=== PATIENT | female | born 1945 | race Caucasian/White ===

== ENCOUNTER 2021-08-25 11:56 | Inpatient (IN) ==
[2021-08-25] MEDS ORDERED: NS 1,000 ML IV 1,000 ML ONE (13:21)
[2021-08-25 13:28] LABS: BASOPHILS % (AUTO) 0.7 % (0.2-1.0); HEMATOCRIT 36.8 % (36.0-47.0); HEMOGLOBIN 12.2 g/dL (12.0-16.0); LYMPHOCYTES # (AUTO) 1.4 X10^3/uL (1.3-2.9); LYMPHOCYTES % (AUTO) 27.4 % (21.0-51.0); MEAN CORPUSCULAR HEMOGLOBIN 23.7 pg (27.0-34.0); MEAN CORPUSCULAR HGB CONC 33.1 g/dL (33.0-35.0); MEAN CORPUSCULAR VOLUME 71.5 fL (80.0-100.0); MONOCYTES # (AUTO) 0.4 x10^3/uL (0.3-0.8); MONOCYTES % (AUTO) 7.3 % (0.0-13.0); NEUTROPHILS # (AUTO) 3.2 x10^3/uL (2.2-4.8); NEUTROPHILS % (AUTO) 64.6 % (42.0-75.0); RED BLOOD COUNT 5.15 X10^6/uL (3.5-5.4)
[2021-08-25] MEDS: NS 1,000 ML IV 1,000 ML IV SCH (13:36)
[2021-08-25 13:41] LABS: ABG BASE EXCESS -9.3 mmol/L (-2.0-2.0)
[2021-08-25 13:42] LABS: ABG ALLEN TEST POS; ABG HCO3 15.1 mmol/L (22-26)
[2021-08-25 13:43] LABS: ALANINE AMINOTRANSFERASE 37 Units/L (12-78); ALBUMIN 3.5 g/dL (3.4-5.0); ALKALINE PHOSPHATASE 74 Units/L (46-116); ASPARTATE AMINO TRANSFERASE 45 Units/L (15-37); BLOOD UREA NITROGEN 53 mg/dL (7-18); CALCIUM 9.1 mg/dL (8.5-10.1); CARBON DIOXIDE 21.3 mmol/L (21-32); CHLORIDE 96 mmol/L (98-107); COR NA(FOR HYPERGLY) 134 mmol/L (136-145); CREATININE 2.74 mg/dL (0.55-1.02); SODIUM 131 mmol/L (136-145); TOTAL PROTEIN 8.8 g/dL (6.4-8.2); eGFR NON BLACK RACES 18 (>60)
[2021-08-25 14:02] LABS: OVALOCYTES SLIGHT; PLATELET MORPHOLOGY COMMENT NORMAL (NORMAL)
--- NOTE | 2021-08-25 14:29 | RAD ---
HISTORYCough, wheezing, COVID-19STUDYChest PA and lateralCOMPARISONNoneFINDINGSHeart size is normal. [place] are normal. Lungs appear free of acute alveolar infiltrates. No pleural effusions are identified. Bony thorax is unremarkable.IMPRESSIONNo significant abnormality identifiedElectronically signed by: LAUREN JAY (Aug 25, 2021 14:27:52)
[2021-08-25] MEDS ORDERED: SOTROVIMAB (EUA) 500 MG, DRUG FILTER EXTENSION SET * 1 EA in NS 250 ML IV 250 ML IV NR ×2 (15:00)
[2021-08-25] MEDS ORDERED: DRUG FILTER EXTENSION SET ONE (15:45)
[2021-08-25 16:35] LABS: BASOPHILS % (AUTO) 0.9 % (0.2-1.0); HEMATOCRIT 35.5 % (36.0-47.0); HEMOGLOBIN 11.8 g/dL (12.0-16.0); LYMPHOCYTES # (AUTO) 0.9 X10^3/uL (1.3-2.9); LYMPHOCYTES % (AUTO) 25.3 % (21.0-51.0); MEAN CORPUSCULAR HEMOGLOBIN 23.7 pg (27.0-34.0); MEAN CORPUSCULAR HGB CONC 33.2 g/dL (33.0-35.0); MEAN CORPUSCULAR VOLUME 71.4 fL (80.0-100.0); MEAN PLATELET VOLUME 8.7 fL (7.4-11.0); MONOCYTES # (AUTO) 0.3 x10^3/uL (0.3-0.8); MONOCYTES % (AUTO) 7.2 % (0.0-13.0); NEUTROPHILS # (AUTO) 2.4 x10^3/uL (2.2-4.8); NEUTROPHILS % (AUTO) 66.6 % (42.0-75.0); RED BLOOD COUNT 4.96 X10^6/uL (3.5-5.4); WHITE BLOOD COUNT 3.5 X10^3/uL (3.6-10.0)
[2021-08-25 16:46] LABS: ALBUMIN 3.2 g/dL (3.4-5.0); CALCIUM 8.7 mg/dL (8.5-10.1); COR CA(FOR HYPOALB) 9.3 mg/dL (8.5-10.1); CREATININE 2.55 mg/dL (0.55-1.02); TOTAL PROTEIN 8.1 g/dL (6.4-8.2)
[2021-08-25] MEDS: VITAMIN D (1.25MG) PO SCH (16:46)
[2021-08-25] MEDS: LOVENOX INJ 30 MG SYR SC SCH (16:46)
[2021-08-25] MEDS: NovoLIN R (or HumuLIN R) SUBCUT PRN (16:47)
[2021-08-25 16:57] LABS: MICROCYTOSIS SLIGHT; PLATELET MORPHOLOGY COMMENT NORMAL (NORMAL)
[2021-08-25] MEDS ORDERED: PROCRIT or EPOGEN VIAL 20,000 UNITS SC SCH (17:00)
[2021-08-25] MEDS ORDERED: NS 1,000 ML IV 1,000 ML IV SCH (17:00)
[2021-08-25] MEDS: SNACK - Diabetic Appropriate PO SCH (20:00)
[2021-08-25 20:12] LABS: BILIRUBIN,URINE NEGATIVE (NEGATIVE); BLOOD/HEMOGLOBIN,URINE 1+ (NEGATIVE); GLUCOSE, URINE NEGATIVE (NEGATIVE); KETONES,URINE NEGATIVE (NEGATIVE); LEUKOCYTE ESTERASE ,URINE NEGATIVE (NEGATIVE); NITRITES,URINE NEGATIVE (NEGATIVE); PROTEIN,URINE 3+ (NEGATIVE); UROBILINOGEN,URINE NORMAL (NORMAL)
[2021-08-25 20:14] LABS: APPEARANCE,URINE SLIGHTLY HAZY (CLEAR); COLOR,URINE YELLOW (YELLOW)
[2021-08-25 20:22] LABS: BACTERIA,URINE 2+ /HPF (NEGATIVE); SQUAMOUS EPITHELIAL CELL,UR MODERATE /HPF (NEGATIVE)
[2021-08-25 20:23] LABS: COARSE GRANULAR CASTS,URINE FEW /HPF (NEGATIVE)
[2021-08-25] MEDS: FERROUS GLUCONATE PO SCH (20:40)
[2021-08-25] MEDS: LOPRESSOR TAB 25 MG PO SCH (20:40)
[2021-08-25] MEDS: K-DUR TAB 20 MEQ PO SCH (20:40)
[2021-08-25] MEDS: PEPCID TAB 20 MG PO SCH (20:40)
[2021-08-25] MEDS: ASCORBIC ACID INJ MULTI-DOSE VIAL 1,500 MG in NS 50 ML IV 50 ML IV SCH (20:40)
[2021-08-25] MEDS ORDERED: GLUCOPHAGE PO SCH (21:00)
[2021-08-25] MEDS: BROVANA IN SCH (21:05)
[2021-08-25] MEDS: PULMICORT NEB TX 0.5 MG NEB SCH (21:05)
[2021-08-25] MEDS: TYLENOL 325 MG TAB PO PRN (22:40)
[2021-08-26] MEDS: ASCORBIC ACID INJ MULTI-DOSE VIAL 1,500 MG in NS 50 ML IV 50 ML IV SCH ×4 (02:38→20:31)
[2021-08-26 04:52] LABS: ABG BASE EXCESS -9.3 mmol/L (-2.0-2.0)
[2021-08-26 04:53] LABS: ABG ALLEN TEST POS; ABG HCO3 15.3 mmol/L (22-26)
[2021-08-26] MEDS: NS 1,000 ML IV 1,000 ML IV SCH ×2 (04:58→16:35)
[2021-08-26 05:22] LABS: BILIRUBIN,URINE NEGATIVE (NEGATIVE); BLOOD/HEMOGLOBIN,URINE NEGATIVE (NEGATIVE); GLUCOSE, URINE NEGATIVE (NEGATIVE); KETONES,URINE NEGATIVE (NEGATIVE); LEUKOCYTE ESTERASE ,URINE NEGATIVE (NEGATIVE); NITRITES,URINE NEGATIVE (NEGATIVE); PROTEIN,URINE 3+ (NEGATIVE); UROBILINOGEN,URINE NORMAL (NORMAL)
[2021-08-26 05:22] LABS: BASOPHILS % (AUTO) 0.5 % (0.2-1.0); EOSINOPHILS % (AUTO) 0.1 % (0.9-2.9); HEMATOCRIT 34.1 % (36.0-47.0); HEMOGLOBIN 11.3 g/dL (12.0-16.0); LYMPHOCYTES # (AUTO) 1.3 X10^3/uL (1.3-2.9); LYMPHOCYTES % (AUTO) 29.6 % (21.0-51.0); MEAN CORPUSCULAR HEMOGLOBIN 23.6 pg (27.0-34.0); MEAN CORPUSCULAR HGB CONC 33.3 g/dL (33.0-35.0); MEAN CORPUSCULAR VOLUME 70.8 fL (80.0-100.0); MEAN PLATELET VOLUME 9.2 fL (7.4-11.0); MONOCYTES # (AUTO) 0.2 x10^3/uL (0.3-0.8); MONOCYTES % (AUTO) 4.7 % (0.0-13.0); NEUTROPHILS # (AUTO) 2.8 x10^3/uL (2.2-4.8); NEUTROPHILS % (AUTO) 65.1 % (42.0-75.0); RED BLOOD COUNT 4.81 X10^6/uL (3.5-5.4); RED CELL DISTRIBUTION WIDTH 19.6 % (11.6-16.5); WHITE BLOOD COUNT 4.4 X10^3/uL (3.6-10.0)
[2021-08-26 05:24] LABS: APPEARANCE,URINE SLIGHTLY HAZY (CLEAR); COLOR,URINE YELLOW (YELLOW)
[2021-08-26 05:35] LABS: BACTERIA,URINE 3+ /HPF (NEGATIVE); GRANULAR CASTS,URINE FEW /LPF (NEGATIVE); RBC,URINE 0-2 /HPF (0-3); SQUAMOUS EPITHELIAL CELL,UR RARE /HPF (NEGATIVE)
[2021-08-26 05:46] LABS: ALBUMIN 3.1 g/dL (3.4-5.0); CALCIUM 8.5 mg/dL (8.5-10.1); CARBON DIOXIDE 17.7 mmol/L (21-32); COR CA(FOR HYPOALB) 9.2 mg/dL (8.5-10.1); CREATININE 2.38 mg/dL (0.55-1.02); TOTAL PROTEIN 7.9 g/dL (6.4-8.2)
--- NOTE | 2021-08-26 07:10 | RAD ---
HISTORYCOVID+, F/USTUDYCHEST, 1 VIEWCOMPARISONOne day prior.TECHNIQUEAP view of the chestFINDINGSCardiac and mediastinal contours are within normal limits. Interval development of bilateral scattered hazy and interstitial pulmonary opacities. No definite pleural effusion or pneumothorax.IMPRESSIONDevelopment of bilateral hazy and interstitial pulmonary opacities consistent with COVID 19.Electronically signed by: Levy Barger (Aug 26, 2021 07:09:14)
[2021-08-26 07:33] LABS: HYPOCHROMASIA 1+; PLATELET MORPHOLOGY COMMENT NORMAL (NORMAL)
[2021-08-26 07:34] LABS: ANISOCYTOSIS SLIGHT; OVALOCYTES 1+
[2021-08-26] MEDS: LOVENOX INJ 30 MG SYR SC SCH (08:45)
[2021-08-26] MEDS: VITAMIN D (1.25MG) PO SCH (08:46)
[2021-08-26] MEDS: CRESTOR TAB 10 MG PO SCH (08:46)
[2021-08-26] MEDS: FERROUS GLUCONATE PO SCH ×2 (08:46→20:30)
[2021-08-26] MEDS: SYNTHROID 88 mcg TAB PO SCH (08:47)
[2021-08-26] MEDS: LOPRESSOR TAB 25 MG PO SCH ×2 (08:47→21:23)
[2021-08-26] MEDS: K-DUR TAB 20 MEQ PO SCH ×2 (08:47→20:31)
[2021-08-26] MEDS ORDERED: TRICOR TAB 160 MG PO SCH (09:00)
[2021-08-26] MEDS: BROVANA IN SCH ×2 (09:41→20:45)
[2021-08-26] MEDS: PULMICORT NEB TX 0.5 MG NEB SCH ×2 (09:41→20:45)
[2021-08-26] MEDS: NovoLIN R (or HumuLIN R) SUBCUT PRN ×2 (10:54→16:36)
[2021-08-26] MEDS: ZOSYN VIAL 3.375 GRAMS 3.375 G in NS 100 ML IV + SPIKE MINIBAG* 100 ML IV SCH (14:22)
--- NOTE | 2021-08-26 19:14 | DR.H&P ---
H&P History & Physical for Day of: H&P Date: 08/25/21 Chief Complaint Chief Complaint: Covid/ SOB Allergies Allergies Allergy/AdvReac Type Severity Reaction Status Date / Time No Known Drug Allergies Allergy Verified 08/25/21 14:20 History of Present Illness History of Present Illness: This is a 76-year-old white female with an 11 day hx of Covid. She repoerts getting worse over the last 2 days with progressive weakness and SOB. She reports she is not getting any better since she contracted Covid. She is a patient of [facility] of [place], [place]. Past Medical History Past Medical History: Anemia, Diabetes, Dyslipidemia, Hypertension, Hypothyroidism and Renal Disease; denies Migraines Past Surgical History Surgical History: No History Family History Family Medical History: Diabetes Mellitus, CA, Coronary Artery Disease, Heart Failure and Hypertension Social History Does patient currently use any type of tobacco product: No Have you used tobacco products in the last 12 months: No Type of Tobacco Use: None Alcohol Use: None Drug Use: None Medications Home Medications: No Known Drug Allergies Allergy (Verified 08/25/21 14:20) CONTINUE taking the following medications albuterol 90 mcg INHALATION Q4H PRN 08/25/21 [History] dulaglutide [Trulicity] 1.5 mg SUBCUT WEEKLY 08/25/21 [History] epoetin norah [Procrit] 1 unit SUBCUT Q14D 08/25/21 [History] ferrous fumarate [Ferrocite] 324 mg PO BID 08/25/21 [History] levothyroxine 88 mcg PO DAILY 08/25/21 [History] meclizine 25 mg PO DAILY PRN 08/25/21 [History] metformin 1,000 mg PO BID 08/25/21 [History] metoprolol tartrate 25 mg PO BID 08/25/21 [History] potassium chloride 20 meq PO BID 08/25/21 [History] rosuvastatin 40 mg PO DAILY 08/25/21 [History] triamterene-hydrochlorothiazid 1 tab PO DAILY 08/25/21 [History] Labs Result Diagrams: 08/26/21 04:30 08/26/21 04:30 Labs: Laboratory WBC 4.4 X10^3/uL (3.6-10.0) 08/26/21 04:30 RBC 4.81 X10^6/uL (3.5-5.4) 08/26/21 04:30 Hgb 11.3 g/dL (12.0-16.0) L 08/26/21 04:30 Hct 34.1 % (36.0-47.0) L 08/26/21 04:30 MCV 70.8 fL (80.0-100.0) L 08/26/21 04:30 MCH 23.6 pg (27.0-34.0) L 08/26/21 04:30 MCHC 33.3 g/dL (33.0-35.0) 08/26/21 04:30 RDW 19.6 % (11.6-16.5) H 08/26/21 04:30 Plt Count 119 X10^3/uL (150.0-450.0) L 08/26/21 04:30 Plt Count Comment Decreased (ADEQUATE) A 08/26/21 04:30 MPV 9.2 fL (7.4-11.0) 08/26/21 04:30 Neut % (Auto) 65.1 % (42.0-75.0) 08/26/21 04:30 Lymph % (Auto) 29.6 % (21.0-51.0) 08/26/21 04:30 [place] % (Auto) 4.7 % (0.0-13.0) 08/26/21 04:30 Eos % (Auto) 0.1 % (0.9-2.9) L 08/26/21 04:30 Baso % (Auto) 0.5 % (0.2-1.0) 08/26/21 04:30 Neut # (Auto) 2.8 x10^3/uL (2.2-4.8) 08/26/21 04:30 Lymph # (Auto) 1.3 X10^3/uL (1.3-2.9) 08/26/21 04:30 [place] # (Auto) 0.2 x10^3/uL (0.3-0.8) L 08/26/21 04:30 Eos # (Auto) 0.0 x10^3/uL (0.0-0.2) 08/26/21 04:30 Baso # (Auto) 0.0 X10^3/uL (0.0-0.1) 08/26/21 04:30 Absolute Nucleated RBC 0.1 /100WBC 08/26/21 04:30 Plt Morphology Comment Normal (NORMAL) 08/26/21 04:30 RBC Morphology Abnormal (NORMAL) A 08/26/21 04:30 Hypochromasia 1+ A 08/26/21 04:30 Anisocytosis Slight A 08/26/21 04:30 Microcytosis Slight A 08/25/21 16:25 Ovalocytes 1+ A 08/26/21 04:30 D-Dimer 0.61 ug/ml (0.0-0.57) H* 08/25/21 13:19 Sample Site Rrad 08/26/21 04:50 ABG pH 7.330 (7.35-7.45) L 08/26/21 04:50 ABG pCO2 29.0 mmHg (35.0-45.0) L 08/26/21 04:50 ABG pO2 75.0 mmHg (80.0-100.0) L 08/26/21 04:50 ABG HCO3 15.3 mmol/L (22-26) L* 08/26/21 04:50 ABG O2 Saturation 94.0 % (90-100) 08/26/21 04:50 ABG Base Excess -9.3 mmol/L (-2.0-2.0) L 08/26/21 04:50 Arjun Test Pos 08/26/21 04:50 A-a Gradient 88.0 mmHg 08/26/21 04:50 FiO2 28.0 08/26/21 04:50 Blood Gas Comments Dolores well ms 08/26/21 04:50 Sodium 134 mmol/L (136-145) L 08/26/21 04:30 Corrected Sodium 135 mmol/L (136-145) L 08/26/21 04:30 Potassium 4.1 mmol/L (3.5-5.1) 08/26/21 04:30 Chloride 102 mmol/L (98-107) 08/26/21 04:30 Carbon Dioxide 17.7 mmol/L (21-32) L 08/26/21 04:30 BUN 49 mg/dL (7-18) H 08/26/21 04:30 Creatinine 2.38 mg/dL (0.55-1.02) H 08/26/21 04:30 Est GFR (MDRD) Af Amer 26 (>60) L 08/26/21 04:30 Est GFR (MDRD) Non-Af 21 (>60) L 08/26/21 04:30 Glucose 122 mg/dL (65-99) H 08/26/21 04:30 POC Glucose (mg/dL) 252 mg/dL (65-99) H 08/26/21 16:29 Calcium 8.5 mg/dL (8.5-10.1) 08/26/21 04:30 Corrected Calcium 9.2 mg/dL (8.5-10.1) 08/26/21 04:30 Total Bilirubin 0.30 mg/dL (0.2-1.0) 08/26/21 04:30 AST 45 Units/L (15-37) H 08/26/21 04:30 ALT 34 Units/L (12-78) 08/26/21 04:30 Alkaline Phosphatase 62 Units/L (46-116) 08/26/21 04:30 C-Reactive Protein 32.90 mg/L (0-3.0) H 08/26/21 04:30 Total Protein 7.9 g/dL (6.4-8.2) 08/26/21 04:30 Albumin 3.1 g/dL (3.4-5.0) L 08/26/21 04:30 Globulin 4.8 g/dL (2.5-4.5) H 08/26/21 04:30 Albumin/Globulin Ratio 0.6 Ratio (1.1-2.1) L 08/26/21 04:30 Specimen Type Clean catch urine 08/26/21 04:25 Urine Color Yellow (YELLOW) 08/26/21 04:25 Urine Appearance Slightly hazy (CLEAR) 08/26/21 04:25 Urine pH 5.0 (5.0 - 8.0) 08/26/21 04:25 Ur Specific [place] 1.020 (1.000-1.030) 08/26/21 04:25 Urine Protein 3+ (NEGATIVE) 08/26/21 04:25 Urine Glucose (UA) Negative (NEGATIVE) 08/26/21 04:25 Urine Ketones Negative (NEGATIVE) 08/26/21 04:25 Urine Occult Blood Negative (NEGATIVE) 08/26/21 04:25 Urine Nitrite Negative (NEGATIVE) 08/26/21 04:25 Urine Bilirubin Negative (NEGATIVE) 08/26/21 04:25 Urine Urobilinogen Normal (NORMAL) 08/26/21 04:25 Ur Leukocyte Esterase Negative (NEGATIVE) 08/26/21 04:25 Urine RBC 0-2 /HPF (0-3) 08/26/21 04:25 Urine WBC 3-5 /HPF (0-5) 08/26/21 04:25 Ur Squamous Epith Cells Rare /HPF (NEGATIVE) 08/26/21 04:25 Amorphous Sediment 1+ /HPF (NEGATIVE) 08/26/21 04:25 Urine Bacteria 3+ /HPF (NEGATIVE) 08/26/21 04:25 Granular Casts Few /LPF (NEGATIVE) 08/26/21 04:25 Coarse Granular Casts Few /HPF (NEGATIVE) 08/25/21 20:00 Urine Mucus Few /HPF (NEGATIVE) 08/25/21 20:00 Ur Culture Indicated? Yes/culture set up 08/26/21 04:25 Review of Systems Constitutional: Fever, Weakness and Malaise; denies Other Eyes: No Symptoms Reported ENT: No Symptoms Reported Respiratory: Cough, Shortness of Breath and SOB with Excertion Cardiovascular: No Symptoms Reported Gastrointestinal: No Symptoms Reported Genitourinary: No Symptoms Reported Musculoskeletal: No Symptoms Reported Skin: No Symptoms Reported Neurological: Weakness Physical Exam Vital Signs: Temperature 99.0 F Pulse Rate 75 Respiratory Rate 20 Blood Pressure 110/57 O2 Sat by Pulse Oximetry 95 Oriented: Normal Eyes: Normal Ear: Normal Nose: Normal Throat: Normal Respiratory: Rhonchi Throughout Cardiovascular: Normal : Normal Auscultation: Bowel Sounds: Normal Palpation: Normal Tenderness: Normal Skin: Normal Musculoskeletal: Normal Psychiatric: Normal Mood Description: Calm Affect: Normal Speech Pattern: Clear and Appropriate Assessment/Plan (1) COVID-19: Status: Acute Plan: Covid Protocol (2) CKD (chronic kidney disease) stage 4, GFR 15-29 ml/min: Status: Acute Plan: IV hydration (3) Anemia of chronic renal failure: Status: Acute (4) DM2 (diabetes mellitus, type 2): Status: Acute Plan: Reg insulin sliding scale (5) HTN (hypertension): Status: Acute (6) Dyslipidemia: Narrative Support Text: resume home bp meds Status: Acute (7) Hypothyroidism: Status: Acute Plan: resume levothyroxine
--- NOTE | 2021-08-26 19:27 | PCM.PROG ---
Progress Note Progress Note for Day of Date of Exam: 08/26/21 Subjective Subjective: Patient reports she feels somewhat better. Less SOB. Feels a little stronger. Past Medical Family Social History Past Med/Fam/Surg Hx: No changes since H&P Allergies: Allergies No Known Drug Allergies Allergy (Verified 08/25/21 14:20) Review of Systems ROS: No change since H&P Vital Signs and I&O's Vital Signs: Temperature 99.0 F Pulse Rate 75 Respiratory Rate 20 Blood Pressure 110/57 O2 Sat by Pulse Oximetry 95 Intake and Output: Intake & Output 08/24/21 08/25/21 08/26/21 08/27/21 11:59 11:59 11:59 11:59 Intake Total 1906 / 1906 972 / 972 Output Total 1300 / 1300 850 / 850 Balance 606 / 606 122 / 122 Physical Exam Oriented: Normal Eyes: Normal Ear: Normal Nose: Normal Throat: Normal Respiratory: Diminished and Rhonchi Cardiovascular: Normal : Normal Auscultation: Bowel Sounds: Normal Tenderness: Normal Skin: Normal Musculoskeletal: Normal Psychiatric: Normal Mood Description: Calm Affect: Normal Speech Pattern: Clear and Appropriate Laboratory and Diagnostics Result Diagrams: 08/26/21 04:30 08/26/21 04:30 Labs: Laboratory WBC 4.4 X10^3/uL (3.6-10.0) 08/26/21 04:30 RBC 4.81 X10^6/uL (3.5-5.4) 08/26/21 04:30 Hgb 11.3 g/dL (12.0-16.0) L 08/26/21 04:30 Hct 34.1 % (36.0-47.0) L 08/26/21 04:30 MCV 70.8 fL (80.0-100.0) L 08/26/21 04:30 MCH 23.6 pg (27.0-34.0) L 08/26/21 04:30 MCHC 33.3 g/dL (33.0-35.0) 08/26/21 04:30 RDW 19.6 % (11.6-16.5) H 08/26/21 04:30 Plt Count 119 X10^3/uL (150.0-450.0) L 08/26/21 04:30 Plt Count Comment Decreased (ADEQUATE) A 08/26/21 04:30 MPV 9.2 fL (7.4-11.0) 08/26/21 04:30 Neut % (Auto) 65.1 % (42.0-75.0) 08/26/21 04:30 Lymph % (Auto) 29.6 % (21.0-51.0) 08/26/21 04:30 [place] % (Auto) 4.7 % (0.0-13.0) 08/26/21 04:30 Eos % (Auto) 0.1 % (0.9-2.9) L 08/26/21 04:30 Baso % (Auto) 0.5 % (0.2-1.0) 08/26/21 04:30 Neut # (Auto) 2.8 x10^3/uL (2.2-4.8) 08/26/21 04:30 Lymph # (Auto) 1.3 X10^3/uL (1.3-2.9) 08/26/21 04:30 [place] # (Auto) 0.2 x10^3/uL (0.3-0.8) L 08/26/21 04:30 Eos # (Auto) 0.0 x10^3/uL (0.0-0.2) 08/26/21 04:30 Baso # (Auto) 0.0 X10^3/uL (0.0-0.1) 08/26/21 04:30 Absolute Nucleated RBC 0.1 /100WBC 08/26/21 04:30 Plt Morphology Comment Normal (NORMAL) 08/26/21 04:30 RBC Morphology Abnormal (NORMAL) A 08/26/21 04:30 Hypochromasia 1+ A 08/26/21 04:30 Anisocytosis Slight A 08/26/21 04:30 Microcytosis Slight A 08/25/21 16:25 Ovalocytes 1+ A 08/26/21 04:30 D-Dimer 0.61 ug/ml (0.0-0.57) H* 08/25/21 13:19 Sample Site Rrad 08/26/21 04:50 ABG pH 7.330 (7.35-7.45) L 08/26/21 04:50 ABG pCO2 29.0 mmHg (35.0-45.0) L 08/26/21 04:50 ABG pO2 75.0 mmHg (80.0-100.0) L 08/26/21 04:50 ABG HCO3 15.3 mmol/L (22-26) L* 08/26/21 04:50 ABG O2 Saturation 94.0 % (90-100) 08/26/21 04:50 ABG Base Excess -9.3 mmol/L (-2.0-2.0) L 08/26/21 04:50 Arjun Test Pos 08/26/21 04:50 A-a Gradient 88.0 mmHg 08/26/21 04:50 FiO2 28.0 08/26/21 04:50 Blood Gas Comments Dolores well ms 08/26/21 04:50 Sodium 134 mmol/L (136-145) L 08/26/21 04:30 Corrected Sodium 135 mmol/L (136-145) L 08/26/21 04:30 Potassium 4.1 mmol/L (3.5-5.1) 08/26/21 04:30 Chloride 102 mmol/L (98-107) 08/26/21 04:30 Carbon Dioxide 17.7 mmol/L (21-32) L 08/26/21 04:30 BUN 49 mg/dL (7-18) H 08/26/21 04:30 Creatinine 2.38 mg/dL (0.55-1.02) H 08/26/21 04:30 Est GFR (MDRD) Af Amer 26 (>60) L 08/26/21 04:30 Est GFR (MDRD) Non-Af 21 (>60) L 08/26/21 04:30 Glucose 122 mg/dL (65-99) H 08/26/21 04:30 POC Glucose (mg/dL) 252 mg/dL (65-99) H 08/26/21 16:29 Calcium 8.5 mg/dL (8.5-10.1) 08/26/21 04:30 Corrected Calcium 9.2 mg/dL (8.5-10.1) 08/26/21 04:30 Total Bilirubin 0.30 mg/dL (0.2-1.0) 08/26/21 04:30 AST 45 Units/L (15-37) H 08/26/21 04:30 ALT 34 Units/L (12-78) 08/26/21 04:30 Alkaline Phosphatase 62 Units/L (46-116) 08/26/21 04:30 C-Reactive Protein 32.90 mg/L (0-3.0) H 08/26/21 04:30 Total Protein 7.9 g/dL (6.4-8.2) 08/26/21 04:30 Albumin 3.1 g/dL (3.4-5.0) L 08/26/21 04:30 Globulin 4.8 g/dL (2.5-4.5) H 08/26/21 04:30 Albumin/Globulin Ratio 0.6 Ratio (1.1-2.1) L 08/26/21 04:30 Specimen Type Clean catch urine 08/26/21 04:25 Urine Color Yellow (YELLOW) 08/26/21 04:25 Urine Appearance Slightly hazy (CLEAR) 08/26/21 04:25 Urine pH 5.0 (5.0 - 8.0) 08/26/21 04:25 Ur Specific [place] 1.020 (1.000-1.030) 08/26/21 04:25 Urine Protein 3+ (NEGATIVE) 08/26/21 04:25 Urine Glucose (UA) Negative (NEGATIVE) 08/26/21 04:25 Urine Ketones Negative (NEGATIVE) 08/26/21 04:25 Urine Occult Blood Negative (NEGATIVE) 08/26/21 04:25 Urine Nitrite Negative (NEGATIVE) 08/26/21 04:25 Urine Bilirubin Negative (NEGATIVE) 08/26/21 04:25 Urine Urobilinogen Normal (NORMAL) 08/26/21 04:25 Ur Leukocyte Esterase Negative (NEGATIVE) 08/26/21 04:25 Urine RBC 0-2 /HPF (0-3) 08/26/21 04:25 Urine WBC 3-5 /HPF (0-5) 08/26/21 04:25 Ur Squamous Epith Cells Rare /HPF (NEGATIVE) 08/26/21 04:25 Amorphous Sediment 1+ /HPF (NEGATIVE) 08/26/21 04:25 Urine Bacteria 3+ /HPF (NEGATIVE) 08/26/21 04:25 Granular Casts Few /LPF (NEGATIVE) 08/26/21 04:25 Coarse Granular Casts Few /HPF (NEGATIVE) 08/25/21 20:00 Urine Mucus Few /HPF (NEGATIVE) 08/25/21 20:00 Ur Culture Indicated? Yes/culture set up 08/26/21 04:25 Radiology Reviewed: Yes Plan (1) COVID-19: Status: Acute Plan: Covid Protocol (2) CKD (chronic kidney disease) stage 4, GFR 15-29 ml/min: Status: Acute Plan: IV hydration D/C Metformin (3) Anemia of chronic renal failure: Status: Acute Narrative Support Text: Stable Hb Plan: Daily CBC's (4) DM2 (diabetes mellitus, type 2): Status: Acute Plan: Reg insulin sliding scale (5) HTN (hypertension): Status: Acute (6) Dyslipidemia: Status: Acute (7) Hypothyroidism: Status: Acute Plan: resume levothyroxine
[2021-08-26] MEDS: SNACK - Diabetic Appropriate PO SCH (20:00)
[2021-08-26] MEDS: PEPCID TAB 20 MG PO SCH (20:30)
[2021-08-27] MEDS: ASCORBIC ACID INJ MULTI-DOSE VIAL 1,500 MG in NS 50 ML IV 50 ML IV SCH ×4 (02:15→20:04)
[2021-08-27 05:24] LABS: BASOPHILS % (AUTO) 0.5 % (0.2-1.0); EOSINOPHILS % (AUTO) 0.1 % (0.9-2.9); HEMATOCRIT 32.3 % (36.0-47.0); HEMOGLOBIN 10.7 g/dL (12.0-16.0); LYMPHOCYTES # (AUTO) 0.8 X10^3/uL (1.3-2.9); LYMPHOCYTES % (AUTO) 28.4 % (21.0-51.0); MEAN CORPUSCULAR HEMOGLOBIN 23.5 pg (27.0-34.0); MEAN CORPUSCULAR HGB CONC 33.3 g/dL (33.0-35.0); MEAN CORPUSCULAR VOLUME 70.7 fL (80.0-100.0); MONOCYTES # (AUTO) 0.2 x10^3/uL (0.3-0.8); MONOCYTES % (AUTO) 5.4 % (0.0-13.0); NEUTROPHILS # (AUTO) 1.9 x10^3/uL (2.2-4.8); NEUTROPHILS % (AUTO) 65.6 % (42.0-75.0); RED BLOOD COUNT 4.57 X10^6/uL (3.5-5.4); RED CELL DISTRIBUTION WIDTH 20.1 % (11.6-16.5); WHITE BLOOD COUNT 2.9 X10^3/uL (3.6-10.0)
[2021-08-27 05:34] LABS: ALBUMIN 2.6 g/dL (3.4-5.0); CALCIUM 8.5 mg/dL (8.5-10.1); CARBON DIOXIDE 19.2 mmol/L (21-32); COR CA(FOR HYPOALB) 9.6 mg/dL (8.5-10.1); CREATININE 1.86 mg/dL (0.55-1.02); MAGNESIUM 1.3 mg/dL (1.7-2.9); TOTAL PROTEIN 7.4 g/dL (6.4-8.2)
--- NOTE | 2021-08-27 06:06 | RAD ---
HISTORYCOVIDSTUDYCHEST, 1 VIEWCOMPARISONJanuary 2021TECHNIQUEPortable chest radiographFINDINGSAccounting for differences in technique, there is no significant overall change in the pattern streaky bilateral interstitial infiltrates and background ground-glass opacities consistent with stated clinical history of COVID-19 pneumonia. The pleural spaces remain clear. There is no evidence of free air or pneumothorax. The heart size is stable.IMPRESSIONStable pulmonary opacities/infiltrates associated with COVID-19 pneumonia.Electronically signed by: RAYMUNDO NORTON (Aug 27, 2021 06:05:13)
[2021-08-27] MEDS: NS 1,000 ML IV 1,000 ML IV SCH ×3 (06:09→22:05)
[2021-08-27] MEDS: BROVANA IN SCH ×2 (08:45→21:00)
[2021-08-27] MEDS: PULMICORT NEB TX 0.5 MG NEB SCH ×2 (08:45→21:00)
[2021-08-27] MEDS: FERROUS GLUCONATE PO SCH ×2 (09:53→20:05)
[2021-08-27] MEDS: SYNTHROID 88 mcg TAB PO SCH (09:53)
[2021-08-27] MEDS: VITAMIN D3 125 mcg (5,000 UNITS) PO SCH (09:53)
[2021-08-27] MEDS: ZOSYN VIAL 3.375 GRAMS 3.375 G in NS 100 ML IV + SPIKE MINIBAG* 100 ML IV SCH ×2 (09:53→20:06)
[2021-08-27] MEDS: CRESTOR TAB 10 MG PO SCH (09:53)
[2021-08-27] MEDS: K-DUR TAB 20 MEQ PO SCH ×2 (09:54→20:05)
[2021-08-27] MEDS: LOPRESSOR TAB 25 MG PO SCH ×2 (09:54→20:05)
[2021-08-27] MEDS: VITAMIN A PO SCH (09:54)
[2021-08-27] MEDS: LOVENOX INJ 30 MG SYR SC SCH (10:11)
[2021-08-27] MEDS: NovoLIN R (or HumuLIN R) SUBCUT PRN ×3 (11:48→20:06)
[2021-08-27 13:06] LABS: ANISOCYTOSIS 1+; PLATELET MORPHOLOGY COMMENT NORMAL (NORMAL)
--- NOTE | 2021-08-27 13:18 | PCM.PROG ---
Progress Note Progress Note for Day of Date of Exam: 08/27/21 Subjective Subjective: Pt is a 76 year old female admitted for COVID-19 pneumonia with hypoxia. This morning she reports feeling better than she did yesterday. She is currently utilizing 2L nasal cannula supplemental oxygen. No acute events overnight. Labs/imaging: Wbc 2.9, Hgb 10.7, Plt 118, Na 136, K 4.0, Creatinine 1.86, Glucose 166, Urine and blood culture pending. CXR was obtained that revealed: Stable pulmonary opacities/infiltrates associated with COVID-19 pneumonia. Pt is currently on IVF NS@75ml/h, Antibiotics: Zosyn, scheduled Bronchodilators Xopenex and Budesonide, Famotidine 40mg BID, Tussionex prn, immune supporting supplements, supplemental O2, SSI, I/S, Lovenox 30mg BID, Physical therapy, Respiratory therapy consult. Will continue to wean/titrate supplemental oxygen as tolerated. Continue to closely monitor and follow up labs/imaging in the morning. Past Medical Family Social History Past Med/Fam/Surg Hx: No changes since H&P Allergies: Allergies No Known Drug Allergies Allergy (Verified 08/25/21 14:20) Review of Systems ROS: No change since H&P Vital Signs and I&O's Vital Signs: Temperature 98 F Pulse Rate 72 Respiratory Rate 29 Blood Pressure 109/72 O2 Sat by Pulse Oximetry 91 Intake and Output: Intake & Output 08/24/21 08/25/21 08/26/21 08/27/21 23:59 23:59 23:59 23:59 Intake Total 809 / 809 3211 / 3211 577 / 577 Output Total 300 / 300 1850 / 1850 Balance 509 / 509 1361 / 1361 577 / 577 Physical Exam Oriented: Normal Eyes: Normal Ear: Normal Nose: Normal Throat: Normal Respiratory: Diminished and Rhonchi Cardiovascular: Normal : Normal Auscultation: Bowel Sounds: Normal Tenderness: Normal Skin: Normal Musculoskeletal: Normal Psychiatric: Normal Mood Description: Calm Affect: Normal Speech Pattern: Clear and Delayed Laboratory and Diagnostics Result Diagrams: 08/27/21 05:09 08/27/21 05:09 Labs: 08/26/21 04:25 Urine,Clean Catch Urine Culture - Preliminary Laboratory WBC 2.9 X10^3/uL (3.6-10.0) L 08/27/21 05:09 RBC 4.57 X10^6/uL (3.5-5.4) 08/27/21 05:09 Hgb 10.7 g/dL (12.0-16.0) L 08/27/21 05:09 Hct 32.3 % (36.0-47.0) L 08/27/21 05:09 MCV 70.7 fL (80.0-100.0) L 08/27/21 05:09 MCH 23.5 pg (27.0-34.0) L 08/27/21 05:09 MCHC 33.3 g/dL (33.0-35.0) 08/27/21 05:09 RDW 20.1 % (11.6-16.5) H 08/27/21 05:09 Plt Count 118 X10^3/uL (150.0-450.0) L 08/27/21 05:09 Plt Count Comment Adequate (ADEQUATE) 08/27/21 05:09 MPV 9.0 fL (7.4-11.0) 08/27/21 05:09 Neut % (Auto) 65.6 % (42.0-75.0) 08/27/21 05:09 Lymph % (Auto) 28.4 % (21.0-51.0) 08/27/21 05:09 [place] % (Auto) 5.4 % (0.0-13.0) 08/27/21 05:09 Eos % (Auto) 0.1 % (0.9-2.9) L 08/27/21 05:09 Baso % (Auto) 0.5 % (0.2-1.0) 08/27/21 05:09 Neut # (Auto) 1.9 x10^3/uL (2.2-4.8) L 08/27/21 05:09 Lymph # (Auto) 0.8 X10^3/uL (1.3-2.9) L 08/27/21 05:09 [place] # (Auto) 0.2 x10^3/uL (0.3-0.8) L 08/27/21 05:09 Eos # (Auto) 0.0 x10^3/uL (0.0-0.2) 08/27/21 05:09 Baso # (Auto) 0.0 X10^3/uL (0.0-0.1) 08/27/21 05:09 Absolute Nucleated RBC 0.1 /100WBC 08/27/21 05:09 Plt Morphology Comment Normal (NORMAL) 08/27/21 05:09 RBC Morphology Normal (NORMAL) 08/27/21 05:09 Hypochromasia 1+ A 08/26/21 04:30 Anisocytosis 1+ A 08/27/21 05:09 Microcytosis Slight A 08/25/21 16:25 Ovalocytes 1+ A 08/26/21 04:30 D-Dimer 0.61 ug/ml (0.0-0.57) H* 08/25/21 13:19 Sample Site Rrad 08/26/21 04:50 ABG pH 7.330 (7.35-7.45) L 08/26/21 04:50 ABG pCO2 29.0 mmHg (35.0-45.0) L 08/26/21 04:50 ABG pO2 75.0 mmHg (80.0-100.0) L 08/26/21 04:50 ABG HCO3 15.3 mmol/L (22-26) L* 08/26/21 04:50 ABG O2 Saturation 94.0 % (90-100) 08/26/21 04:50 ABG Base Excess -9.3 mmol/L (-2.0-2.0) L 08/26/21 04:50 Arjun Test Pos 08/26/21 04:50 A-a Gradient 88.0 mmHg 08/26/21 04:50 FiO2 28.0 08/26/21 04:50 Blood Gas Comments Dolores well ms 08/26/21 04:50 Sodium 136 mmol/L (136-145) 08/27/21 05:09 Corrected Sodium 138 mmol/L (136-145) 08/27/21 05:09 Potassium 4.0 mmol/L (3.5-5.1) 08/27/21 05:09 Chloride 103 mmol/L (98-107) 08/27/21 05:09 Carbon Dioxide 19.2 mmol/L (21-32) L 08/27/21 05:09 BUN 35 mg/dL (7-18) H 08/27/21 05:09 Creatinine 1.86 mg/dL (0.55-1.02) H 08/27/21 05:09 Est GFR (MDRD) Af Amer 34 (>60) L 08/27/21 05:09 Est GFR (MDRD) Non-Af 28 (>60) L 08/27/21 05:09 Glucose 166 mg/dL (65-99) H 08/27/21 05:09 POC Glucose (mg/dL) 260 mg/dL (65-99) H 08/27/21 11:25 Calcium 8.5 mg/dL (8.5-10.1) 08/27/21 05:09 Corrected Calcium 9.6 mg/dL (8.5-10.1) 08/27/21 05:09 Magnesium 1.3 mg/dL (1.7-2.9) L 08/27/21 05:09 Total Bilirubin 0.30 mg/dL (0.2-1.0) 08/27/21 05:09 AST 45 Units/L (15-37) H 08/27/21 05:09 ALT 30 Units/L (12-78) 08/27/21 05:09 Alkaline Phosphatase 52 Units/L (46-116) 08/27/21 05:09 C-Reactive Protein 32.90 mg/L (0-3.0) H 08/26/21 04:30 Total Protein 7.4 g/dL (6.4-8.2) 08/27/21 05:09 Albumin 2.6 g/dL (3.4-5.0) L 08/27/21 05:09 Globulin 4.8 g/dL (2.5-4.5) H 08/27/21 05:09 Albumin/Globulin Ratio 0.5 Ratio (1.1-2.1) L 08/27/21 05:09 Specimen Type Clean catch urine 08/26/21 04:25 Urine Color Yellow (YELLOW) 08/26/21 04:25 Urine Appearance Slightly hazy (CLEAR) 08/26/21 04:25 Urine pH 5.0 (5.0 - 8.0) 08/26/21 04:25 Ur Specific [place] 1.020 (1.000-1.030) 08/26/21 04:25 Urine Protein 3+ (NEGATIVE) 08/26/21 04:25 Urine Glucose (UA) Negative (NEGATIVE) 08/26/21 04:25 Urine Ketones Negative (NEGATIVE) 08/26/21 04:25 Urine Occult Blood Negative (NEGATIVE) 08/26/21 04:25 Urine Nitrite Negative (NEGATIVE) 08/26/21 04:25 Urine Bilirubin Negative (NEGATIVE) 08/26/21 04:25 Urine Urobilinogen Normal (NORMAL) 08/26/21 04:25 Ur Leukocyte Esterase Negative (NEGATIVE) 08/26/21 04:25 Urine RBC 0-2 /HPF (0-3) 08/26/21 04:25 Urine WBC 3-5 /HPF (0-5) 08/26/21 04:25 Ur Squamous Epith Cells Rare /HPF (NEGATIVE) 08/26/21 04:25 Amorphous Sediment 1+ /HPF (NEGATIVE) 08/26/21 04:25 Urine Bacteria 3+ /HPF (NEGATIVE) 08/26/21 04:25 Granular Casts Few /LPF (NEGATIVE) 08/26/21 04:25 Coarse Granular Casts Few /HPF (NEGATIVE) 08/25/21 20:00 Urine Mucus Few /HPF (NEGATIVE) 08/25/21 20:00 Ur Culture Indicated? Yes/culture set up 08/26/21 04:25 Plan (1) COVID-19: Status: Acute Plan: Covid Protocol (2) CKD (chronic kidney disease) stage 4, GFR 15-29 ml/min: Status: Acute Plan: IV hydration D/C Metformin (3) Anemia of chronic renal failure: Status: Acute Plan: Daily CBC's (4) DM2 (diabetes mellitus, type 2): Status: Acute Plan: Reg insulin sliding scale (5) HTN (hypertension): Status: Acute (6) Dyslipidemia: Status: Acute (7) Hypothyroidism: Status: Acute Plan: resume levothyroxine
[2021-08-27] MEDS: SNACK - Diabetic Appropriate PO SCH (19:58)
[2021-08-27] MEDS: PEPCID TAB 20 MG PO SCH (20:05)
[2021-08-27] MEDS: TYLENOL 325 MG TAB PO PRN (23:25)
[2021-08-28] MEDS: ASCORBIC ACID INJ MULTI-DOSE VIAL 1,500 MG in NS 50 ML IV 50 ML IV SCH ×4 (02:25→21:07)
[2021-08-28 05:09] LABS: CALCIUM 8.7 mg/dL (8.5-10.1); CARBON DIOXIDE 19.2 mmol/L (21-32); CREATININE 1.95 mg/dL (0.55-1.02)
[2021-08-28 05:14] LABS: BASOPHILS % (AUTO) 0.7 % (0.2-1.0); EOSINOPHILS % (AUTO) 0.3 % (0.9-2.9); HEMATOCRIT 31.6 % (36.0-47.0); HEMOGLOBIN 10.5 g/dL (12.0-16.0); LYMPHOCYTES # (AUTO) 0.9 X10^3/uL (1.3-2.9); LYMPHOCYTES % (AUTO) 24.7 % (21.0-51.0); MEAN CORPUSCULAR HEMOGLOBIN 23.4 pg (27.0-34.0); MEAN CORPUSCULAR HGB CONC 33.4 g/dL (33.0-35.0); MEAN CORPUSCULAR VOLUME 69.9 fL (80.0-100.0); MEAN PLATELET VOLUME 8.9 fL (7.4-11.0); MONOCYTES # (AUTO) 0.2 x10^3/uL (0.3-0.8); MONOCYTES % (AUTO) 4.5 % (0.0-13.0); NEUTROPHILS # (AUTO) 2.4 x10^3/uL (2.2-4.8); NEUTROPHILS % (AUTO) 69.8 % (42.0-75.0); RED BLOOD COUNT 4.52 X10^6/uL (3.5-5.4); WHITE BLOOD COUNT 3.5 X10^3/uL (3.6-10.0)
[2021-08-28] MEDS: NS 1,000 ML IV 1,000 ML IV SCH ×2 (05:23→20:34)
[2021-08-28] MEDS ORDERED: MAGNESIUM SULFATE 1 GRAM/100 mL PREMIX 1 G/100 ML BAG IV ONE (05:26)
[2021-08-28] MEDS: MAGNESIUM SULFATE 1 GRAM/100 mL PREMIX 1 G/100 ML BAG IV PRN ×2 (05:29→07:13)
[2021-08-28 05:53] LABS: PLATELET MORPHOLOGY COMMENT NORMAL (NORMAL)
[2021-08-28 05:54] LABS: ANISOCYTOSIS SLIGHT; HYPOCHROMASIA SLIGHT; MICROCYTOSIS SLIGHT; OVALOCYTES PRESENT
--- NOTE | 2021-08-28 06:30 | RAD ---
HISTORYCOVID PNEUMONIA HX: HTN, CVA, DM, MELANOMASTUDYCHEST, 1 [id number] trachea is midline. The cardiac silhouette is unremarkable. Bilateral patchy pulmonary opacities/infiltrates unchanged. No pneumothorax.. The bony thorax is unremarkable.IMPRESSIONStable portable chest.Electronically signed by: Ish Delgado (Aug 28, 2021 06:29:20)
[2021-08-28] MEDS: BROVANA IN SCH ×2 (08:10→21:43)
[2021-08-28] MEDS: PULMICORT NEB TX 0.5 MG NEB SCH ×2 (08:10→21:43)
[2021-08-28] MEDS: VITAMIN A PO SCH (09:00)
[2021-08-28] MEDS: ZOSYN VIAL 3.375 GRAMS 3.375 G in NS 100 ML IV + SPIKE MINIBAG* 100 ML IV SCH ×2 (09:00→20:50)
[2021-08-28] MEDS: K-DUR TAB 20 MEQ PO SCH ×2 (09:00→20:48)
[2021-08-28] MEDS: LOVENOX INJ 30 MG SYR SC SCH (09:00)
[2021-08-28] MEDS: LOPRESSOR TAB 25 MG PO SCH ×2 (09:00→20:48)
[2021-08-28] MEDS: VITAMIN D3 125 mcg (5,000 UNITS) PO SCH (09:00)
[2021-08-28] MEDS: FERROUS GLUCONATE PO SCH ×2 (09:00→20:48)
[2021-08-28] MEDS: SYNTHROID 88 mcg TAB PO SCH (09:00)
[2021-08-28] MEDS: CRESTOR TAB 10 MG PO SCH (09:00)
[2021-08-28] MEDS ORDERED: CHLORASEPTIC SPRAY MT PRN (11:12)
--- NOTE | 2021-08-28 12:48 | PCM.PROG ---
Progress Note Progress Note for Day of Date of Exam: 08/28/21 Subjective Subjective: Pt is a 76 year old female admitted for COVID-19 pneumonia with hypoxia. This morning patient continues to improve. She is currently utilizing 2L nasal cannula supplemental oxygen and has been stable. No acute events overnight. Labs/imaging: Wbc 3.5, Hgb 10.5, Plt 153, Na 138, K 3.6, Creatinine 1.95, Glucose 168, Urine and blood culture pending. CXR was obtained that revealed: Stable pulmonary opacities/infiltrates associated with COVID-19 pneumonia. Pt is currently on IVF NS@75ml/h, Antibiotics: Zosyn, scheduled Bronchodilators Xopenex and Budesonide, Famotidine 40mg BID, Tussionex prn, immune supporting supplements, supplemental O2, SSI, I/S, Lovenox 30mg BID, Physical therapy, Respiratory therapy consult. Will continue to wean/titrate supplemental oxygen as tolerated. Otherwise continue with current treatment plan. Will closely monitor and follow up labs/imaging in the morning. Past Medical Family Social History Past Med/Fam/Surg Hx: No changes since H&P Allergies: Allergies No Known Drug Allergies Allergy (Verified 08/25/21 14:20) Review of Systems ROS: No change since H&P Vital Signs and I&O's Vital Signs: Temperature 98.4 F Pulse Rate 71 Respiratory Rate 20 Blood Pressure 112/70 O2 Sat by Pulse Oximetry 95 Intake and Output: Intake & Output 08/25/21 08/26/21 08/27/21 08/28/21 23:59 23:59 23:59 23:59 Intake Total 809 / 809 3211 / 3211 2516 / 2516 580 / 580 Output Total 300 / 300 1850 / 1850 1200 / 1200 Balance 509 / 509 1361 / 1361 1316 / 1316 580 / 580 Physical Exam Oriented: Normal Eyes: Normal Ear: Normal Nose: Normal Throat: Normal Respiratory: Diminished and Rhonchi Cardiovascular: Normal : Normal Auscultation: Bowel Sounds: Normal Tenderness: Normal Skin: Normal Musculoskeletal: Normal Psychiatric: Normal Mood Description: Calm Affect: Normal Speech Pattern: Clear and Delayed Laboratory and Diagnostics Result Diagrams: 08/28/21 04:47 08/28/21 04:47 Labs: 08/25/21 22:39 Blood Blood Culture - Preliminary 08/25/21 22:32 Blood Blood Culture - Preliminary 08/26/21 04:25 Urine,Clean Catch Urine Culture - Preliminary Laboratory WBC 3.5 X10^3/uL (3.6-10.0) L 08/28/21 04:47 RBC 4.52 X10^6/uL (3.5-5.4) 08/28/21 04:47 Hgb 10.5 g/dL (12.0-16.0) L 08/28/21 04:47 Hct 31.6 % (36.0-47.0) L 08/28/21 04:47 MCV 69.9 fL (80.0-100.0) L 08/28/21 04:47 MCH 23.4 pg (27.0-34.0) L 08/28/21 04:47 MCHC 33.4 g/dL (33.0-35.0) 08/28/21 04:47 RDW 20.0 % (11.6-16.5) H 08/28/21 04:47 Plt Count 153 X10^3/uL (150.0-450.0) 08/28/21 04:47 Plt Count Comment Adequate (ADEQUATE) 08/28/21 04:47 MPV 8.9 fL (7.4-11.0) 08/28/21 04:47 Neut % (Auto) 69.8 % (42.0-75.0) 08/28/21 04:47 Lymph % (Auto) 24.7 % (21.0-51.0) 08/28/21 04:47 [place] % (Auto) 4.5 % (0.0-13.0) 08/28/21 04:47 Eos % (Auto) 0.3 % (0.9-2.9) L 08/28/21 04:47 Baso % (Auto) 0.7 % (0.2-1.0) 08/28/21 04:47 Neut # (Auto) 2.4 x10^3/uL (2.2-4.8) 08/28/21 04:47 Lymph # (Auto) 0.9 X10^3/uL (1.3-2.9) L 08/28/21 04:47 [place] # (Auto) 0.2 x10^3/uL (0.3-0.8) L 08/28/21 04:47 Eos # (Auto) 0.0 x10^3/uL (0.0-0.2) 08/28/21 04:47 Baso # (Auto) 0.0 X10^3/uL (0.0-0.1) 08/28/21 04:47 Absolute Nucleated RBC 0.1 /100WBC 08/28/21 04:47 Plt Morphology Comment Normal (NORMAL) 08/28/21 04:47 RBC Morphology Abnormal (NORMAL) A 08/28/21 04:47 Hypochromasia Slight A 08/28/21 04:47 Anisocytosis Slight A 08/28/21 04:47 Microcytosis Slight A 08/28/21 04:47 Ovalocytes Present 08/28/21 04:47 D-Dimer 0.61 ug/ml (0.0-0.57) H* 08/25/21 13:19 Sample Site Rrad 08/26/21 04:50 ABG pH 7.330 (7.35-7.45) L 08/26/21 04:50 ABG pCO2 29.0 mmHg (35.0-45.0) L 08/26/21 04:50 ABG pO2 75.0 mmHg (80.0-100.0) L 08/26/21 04:50 ABG HCO3 15.3 mmol/L (22-26) L* 08/26/21 04:50 ABG O2 Saturation 94.0 % (90-100) 08/26/21 04:50 ABG Base Excess -9.3 mmol/L (-2.0-2.0) L 08/26/21 04:50 Arjun Test Pos 08/26/21 04:50 A-a Gradient 88.0 mmHg 08/26/21 04:50 FiO2 28.0 08/26/21 04:50 Blood Gas Comments Dolores well ms 08/26/21 04:50 Sodium 138 mmol/L (136-145) 08/28/21 04:47 Corrected Sodium 140 mmol/L (136-145) 08/28/21 04:47 Potassium 3.6 mmol/L (3.5-5.1) 08/28/21 04:47 Chloride 103 mmol/L (98-107) 08/28/21 04:47 Carbon Dioxide 19.2 mmol/L (21-32) L 08/28/21 04:47 BUN 31 mg/dL (7-18) H 08/28/21 04:47 Creatinine 1.95 mg/dL (0.55-1.02) H 08/28/21 04:47 Est GFR (MDRD) Af Amer 32 (>60) L 08/28/21 04:47 Est GFR (MDRD) Non-Af 27 (>60) L 08/28/21 04:47 Glucose 168 mg/dL (65-99) H 08/28/21 04:47 POC Glucose (mg/dL) 324 mg/dL (65-99) H 08/28/21 11:56 Calcium 8.7 mg/dL (8.5-10.1) 08/28/21 04:47 Corrected Calcium 9.6 mg/dL (8.5-10.1) 08/27/21 05:09 Magnesium 1.2 mg/dL (1.7-2.9) L 08/28/21 04:47 Total Bilirubin 0.30 mg/dL (0.2-1.0) 08/27/21 05:09 AST 45 Units/L (15-37) H 08/27/21 05:09 ALT 30 Units/L (12-78) 08/27/21 05:09 Alkaline Phosphatase 52 Units/L (46-116) 08/27/21 05:09 C-Reactive Protein 32.90 mg/L (0-3.0) H 08/26/21 04:30 Total Protein 7.4 g/dL (6.4-8.2) 08/27/21 05:09 Albumin 2.6 g/dL (3.4-5.0) L 08/27/21 05:09 Globulin 4.8 g/dL (2.5-4.5) H 08/27/21 05:09 Albumin/Globulin Ratio 0.5 Ratio (1.1-2.1) L 08/27/21 05:09 Specimen Type Clean catch urine 08/26/21 04:25 Urine Color Yellow (YELLOW) 08/26/21 04:25 Urine Appearance Slightly hazy (CLEAR) 08/26/21 04:25 Urine pH 5.0 (5.0 - 8.0) 08/26/21 04:25 Ur Specific [place] 1.020 (1.000-1.030) 08/26/21 04:25 Urine Protein 3+ (NEGATIVE) 08/26/21 04:25 Urine Glucose (UA) Negative (NEGATIVE) 08/26/21 04:25 Urine Ketones Negative (NEGATIVE) 08/26/21 04:25 Urine Occult Blood Negative (NEGATIVE) 08/26/21 04:25 Urine Nitrite Negative (NEGATIVE) 08/26/21 04:25 Urine Bilirubin Negative (NEGATIVE) 08/26/21 04:25 Urine Urobilinogen Normal (NORMAL) 08/26/21 04:25 Ur Leukocyte Esterase Negative (NEGATIVE) 08/26/21 04:25 Urine RBC 0-2 /HPF (0-3) 08/26/21 04:25 Urine WBC 3-5 /HPF (0-5) 08/26/21 04:25 Ur Squamous Epith Cells Rare /HPF (NEGATIVE) 08/26/21 04:25 Amorphous Sediment 1+ /HPF (NEGATIVE) 08/26/21 04:25 Urine Bacteria 3+ /HPF (NEGATIVE) 08/26/21 04:25 Granular Casts Few /LPF (NEGATIVE) 08/26/21 04:25 Coarse Granular Casts Few /HPF (NEGATIVE) 08/25/21 20:00 Urine Mucus Few /HPF (NEGATIVE) 08/25/21 20:00 Ur Culture Indicated? Yes/culture set up 08/26/21 04:25 Plan (1) COVID-19: Status: Acute Plan: Covid Protocol (2) CKD (chronic kidney disease) stage 4, GFR 15-29 ml/min: Status: Acute Plan: IV hydration D/C Metformin (3) Anemia of chronic renal failure: Status: Acute Plan: Daily CBC's (4) DM2 (diabetes mellitus, type 2): Status: Acute Plan: Reg insulin sliding scale (5) HTN (hypertension): Status: Acute (6) Dyslipidemia: Status: Acute (7) Hypothyroidism: Status: Acute Plan: resume levothyroxine
[2021-08-28] MEDS ORDERED: XOPENEX 1.25 MG/3 ML NEBULE NEB ONE (15:59)
[2021-08-28] MEDS: XOPENEX 1.25 MG/3 ML NEBULE NEB PRN (16:02)
[2021-08-28] MEDS ORDERED: NEURONTIN CAP 100 MG ONE (19:22)
[2021-08-28] MEDS: DIFLUCAN 200 MG IV PREMIX* 200 MG/100 ML BAG IV SCH (19:48)
[2021-08-28] MEDS: PEPCID TAB 20 MG PO SCH (20:47)
[2021-08-28] MEDS: NEURONTIN CAP 100 MG PO SCH (20:47)
[2021-08-28] MEDS: SNACK - Diabetic Appropriate PO SCH (20:47)
[2021-08-28] MEDS: TYLENOL 325 MG TAB PO PRN (20:49)
[2021-08-28] MEDS: NovoLIN R (or HumuLIN R) SUBCUT PRN (20:50)
[2021-08-29] MEDS: ASCORBIC ACID INJ MULTI-DOSE VIAL 1,500 MG in NS 50 ML IV 50 ML IV SCH ×4 (02:09→21:36)
[2021-08-29] MEDS: NS 1,000 ML IV 1,000 ML IV SCH ×2 (04:30→16:14)
[2021-08-29 05:27] LABS: CALCIUM 8.8 mg/dL (8.5-10.1); CARBON DIOXIDE 17.6 mmol/L (21-32); CREATININE 1.92 mg/dL (0.55-1.02)
[2021-08-29 05:45] LABS: MAGNESIUM 1.8 mg/dL (1.7-2.9)
[2021-08-29] MEDS: NovoLIN R (or HumuLIN R) SUBCUT PRN ×4 (05:46→22:24)
[2021-08-29] MEDS: MAGNESIUM SULFATE 1 GRAM/100 mL PREMIX 1 G/100 ML BAG IV PRN ×3 (06:09→17:31)
--- NOTE | 2021-08-29 06:15 | RAD ---
HISTORYCOVID+STUDYCHEST, 1 VIEWCOMPARISONOne day prior.TECHNIQUEAP view of the chestFINDINGSCardiac and mediastinal contours are within normal limits. No significant change in bilateral airspace and interstitial opacities. No definite pleural effusion or pneumothorax. Soft tissue attenuation limits evaluation.IMPRESSIONNo significant change.Electronically signed by: Levy Barger (Aug 29, 2021 06:14:48)
[2021-08-29 06:42] LABS: BASOPHILS % (AUTO) 0.6 % (0.2-1.0); EOSINOPHILS % (AUTO) 0.2 % (0.9-2.9); HEMATOCRIT 28.8 % (36.0-47.0); HEMOGLOBIN 9.5 g/dL (12.0-16.0); LYMPHOCYTES # (AUTO) 0.4 X10^3/uL (1.3-2.9); LYMPHOCYTES % (AUTO) 9.4 % (21.0-51.0); MEAN CORPUSCULAR HEMOGLOBIN 23.3 pg (27.0-34.0); MEAN CORPUSCULAR HGB CONC 33.1 g/dL (33.0-35.0); MEAN CORPUSCULAR VOLUME 70.4 fL (80.0-100.0); MEAN PLATELET VOLUME 8.8 fL (7.4-11.0); MONOCYTES # (AUTO) 0.1 x10^3/uL (0.3-0.8); NEUTROPHILS % (AUTO) 86.8 % (42.0-75.0); RED BLOOD COUNT 4.08 X10^6/uL (3.5-5.4); RED CELL DISTRIBUTION WIDTH 20.2 % (11.6-16.5); WHITE BLOOD COUNT 4.6 X10^3/uL (3.6-10.0)
[2021-08-29 07:31] LABS: PLATELET MORPHOLOGY COMMENT NORMAL (NORMAL)
[2021-08-29 07:32] LABS: ANISOCYTOSIS 1+; MICROCYTOSIS SLIGHT; OVALOCYTES PRESENT
[2021-08-29] MEDS: TYLENOL 325 MG TAB PO PRN ×2 (09:07→16:15)
[2021-08-29] MEDS: DIFLUCAN 200 MG IV PREMIX* 200 MG/100 ML BAG IV SCH (09:09)
[2021-08-29] MEDS: FERROUS GLUCONATE PO SCH ×2 (09:09→21:36)
[2021-08-29] MEDS: VITAMIN D3 125 mcg (5,000 UNITS) PO SCH (09:10)
[2021-08-29] MEDS: SYNTHROID 88 mcg TAB PO SCH (09:10)
[2021-08-29] MEDS: K-DUR TAB 20 MEQ PO SCH ×2 (09:10→21:36)
[2021-08-29] MEDS: VITAMIN A PO SCH (09:10)
[2021-08-29] MEDS: LOPRESSOR TAB 25 MG PO SCH ×2 (09:10→21:36)
[2021-08-29] MEDS: PULMICORT NEB TX 0.5 MG NEB SCH ×2 (09:15→21:17)
[2021-08-29] MEDS: BROVANA IN SCH ×2 (09:15→21:17)
[2021-08-29] MEDS: CRESTOR TAB 10 MG PO SCH (09:23)
[2021-08-29] MEDS: LOVENOX INJ 30 MG SYR SC SCH (09:24)
[2021-08-29] MEDS: ZOSYN VIAL 3.375 GRAMS 3.375 G in NS 100 ML IV + SPIKE MINIBAG* 100 ML IV SCH ×2 (09:24→22:19)
[2021-08-29] MEDS ORDERED: MAGNESIUM SULFATE 1 GRAM/100 mL PREMIX 1 G/100 ML BAG IV ONE ×2 (11:03→11:22)
[2021-08-29] MEDS ORDERED: MAGNESIUM SULFATE 40 GRAMS IV 40 G/1,000 ML BAG IV PRN ×2 (11:07→11:15)
[2021-08-29] MEDS ORDERED: KLOR-CON PO PRN (11:09)
[2021-08-29] MEDS ORDERED: POTASSIUM CHLORIDE LIQ 20 MEQ UDC PO PRN (11:09)
[2021-08-29] MEDS ORDERED: POTASSIUM CHL 60 MEQ/NS 0.45% 500 ML IV PRN (11:09)
[2021-08-29] MEDS ORDERED: POTASSIUM CHL 40 MEQ/NS 0.45% 500 ML IV PRN (11:09)
[2021-08-29] MEDS ORDERED: K-RIDER 10 MEQ/NS 100 ML 10 MEQ/100 ML BAG IV PRN (11:09)
[2021-08-29] MEDS ORDERED: MICRO K EXTEN CAP 10 MEQ PO PRN (11:09)
[2021-08-29 11:34] LABS: ALBUMIN 2.5 g/dL (3.4-5.0); TOTAL PROTEIN 7.9 g/dL (6.4-8.2)
[2021-08-29] MEDS ORDERED: ASCORBIC ACID INJ MULTI-DOSE VIAL IV ONE (13:36)
[2021-08-29] MEDS ORDERED: NS 100 ML IV 100 ML ONE (13:36)
[2021-08-29] MEDS: XOPENEX 1.25 MG/3 ML NEBULE NEB PRN (13:44)
--- NOTE | 2021-08-29 17:01 | PCM.PROG ---
Progress Note Progress Note for Day of Date of Exam: 08/29/21 Subjective Subjective: Pt is a 76 year old female admitted for COVID-19 pneumonia with hypoxia. This morning patient continues to improve. She is currently utilizing HHF with an FiO2 of 46%. No acute events overnight. Labs/imaging: Wbc 4.6, Hgb 9.5, Plt 171, Na 134, K 4.0, Creatinine 1.92, Glucose 279, Urine culture grew out Streptococcus pneumoniae and blood culture pending. CXR was obtained that revealed: Stable pulmonary opacities/infiltrates associated with COVID-19 pneumonia. Pt is currently on IVF NS@75ml/h, Antibiotics: Zosyn, scheduled Bronchodilators Xopenex and Budesonide, Famotidine 40mg BID, Tussionex prn, immune supporting supplements, supplemental O2, SSI, I/S, Lovenox 30mg BID, Physical therapy, Respiratory therapy consult. Will continue to wean/titrate supplemental oxygen as tolerated. Otherwise continue with current treatment plan. Will closely monitor and follow up labs/imaging in the morning. Past Medical Family Social History Past Med/Fam/Surg Hx: No changes since H&P Allergies: Allergies No Known Drug Allergies Allergy (Verified 08/25/21 14:20) Review of Systems ROS: No change since H&P Vital Signs and I&O's Vital Signs: Temperature 98.4 F Pulse Rate 80 Respiratory Rate 18 Blood Pressure 143/61 O2 Sat by Pulse Oximetry 96 Intake and Output: Intake & Output 08/27/21 08/28/21 08/29/21 08/30/21 11:59 11:59 11:59 11:59 Intake Total 2691 / 2691 2519 / 2519 2810 / 2810 1495 / 1495 Output Total 850 / 850 1200 / 1200 3 / 3 Balance 1841 / 1841 1319 / 1319 2807 / 2807 1495 / 1495 Physical Exam Oriented: Normal Eyes: Normal Ear: Normal Nose: Normal Throat: Normal Respiratory: Diminished and Rhonchi Cardiovascular: Normal : Normal Auscultation: Bowel Sounds: Normal Tenderness: Normal Skin: Normal Musculoskeletal: Normal Psychiatric: Normal Mood Description: Calm Affect: Normal Speech Pattern: Clear and Appropriate Laboratory and Diagnostics Result Diagrams: 08/29/21 04:56 08/29/21 04:56 Labs: 08/26/21 04:25 Urine,Clean Catch Urine Culture - Preliminary Streptococcus Pneumoniae 08/25/21 22:39 Blood Blood Culture - Preliminary 08/25/21 22:32 Blood Blood Culture - Preliminary Laboratory WBC 4.6 X10^3/uL (3.6-10.0) 08/29/21 04:56 RBC 4.08 X10^6/uL (3.5-5.4) 08/29/21 04:56 Hgb 9.5 g/dL (12.0-16.0) L 08/29/21 04:56 Hct 28.8 % (36.0-47.0) L 08/29/21 04:56 MCV 70.4 fL (80.0-100.0) L 08/29/21 04:56 MCH 23.3 pg (27.0-34.0) L 08/29/21 04:56 MCHC 33.1 g/dL (33.0-35.0) 08/29/21 04:56 RDW 20.2 % (11.6-16.5) H 08/29/21 04:56 Plt Count 171 X10^3/uL (150.0-450.0) 08/29/21 04:56 Plt Count Comment Adequate (ADEQUATE) 08/29/21 04:56 MPV 8.8 fL (7.4-11.0) 08/29/21 04:56 Neut % (Auto) 86.8 % (42.0-75.0) H 08/29/21 04:56 Lymph % (Auto) 9.4 % (21.0-51.0) L 08/29/21 04:56 [place] % (Auto) 3.0 % (0.0-13.0) 08/29/21 04:56 Eos % (Auto) 0.2 % (0.9-2.9) L 08/29/21 04:56 Baso % (Auto) 0.6 % (0.2-1.0) 08/29/21 04:56 Neut # (Auto) 4.0 x10^3/uL (2.2-4.8) 08/29/21 04:56 Lymph # (Auto) 0.4 X10^3/uL (1.3-2.9) L 08/29/21 04:56 [place] # (Auto) 0.1 x10^3/uL (0.3-0.8) L 08/29/21 04:56 Eos # (Auto) 0.0 x10^3/uL (0.0-0.2) 08/29/21 04:56 Baso # (Auto) 0.0 X10^3/uL (0.0-0.1) 08/29/21 04:56 Absolute Nucleated RBC 0.0 /100WBC 08/29/21 04:56 Plt Morphology Comment Normal (NORMAL) 08/29/21 04:56 RBC Morphology Abnormal (NORMAL) A 08/29/21 04:56 Hypochromasia Slight A 08/28/21 04:47 Anisocytosis 1+ A 08/29/21 04:56 Microcytosis Slight A 08/29/21 04:56 Ovalocytes Present 08/29/21 04:56 D-Dimer 0.61 ug/ml (0.0-0.57) H* 08/25/21 13:19 Sample Site Rrad 08/26/21 04:50 ABG pH 7.330 (7.35-7.45) L 08/26/21 04:50 ABG pCO2 29.0 mmHg (35.0-45.0) L 08/26/21 04:50 ABG pO2 75.0 mmHg (80.0-100.0) L 08/26/21 04:50 ABG HCO3 15.3 mmol/L (22-26) L* 08/26/21 04:50 ABG O2 Saturation 94.0 % (90-100) 08/26/21 04:50 ABG Base Excess -9.3 mmol/L (-2.0-2.0) L 08/26/21 04:50 Arjun Test Pos 08/26/21 04:50 A-a Gradient 88.0 mmHg 08/26/21 04:50 FiO2 28.0 08/26/21 04:50 Blood Gas Comments Dolores well ms 08/26/21 04:50 Sodium 134 mmol/L (136-145) L 08/29/21 04:56 Corrected Sodium 138 mmol/L (136-145) 08/29/21 04:56 Potassium 4.0 mmol/L (3.5-5.1) 08/29/21 04:56 Chloride 100 mmol/L (98-107) 08/29/21 04:56 Carbon Dioxide 17.6 mmol/L (21-32) L 08/29/21 04:56 BUN 27 mg/dL (7-18) H 08/29/21 04:56 Creatinine 1.92 mg/dL (0.55-1.02) H 08/29/21 04:56 Est GFR (MDRD) Af Amer 33 (>60) L 08/29/21 04:56 Est GFR (MDRD) Non-Af 27 (>60) L 08/29/21 04:56 Glucose 279 mg/dL (65-99) H 08/29/21 04:56 POC Glucose (mg/dL) 293 mg/dL (65-99) H 08/29/21 16:27 Calcium 8.8 mg/dL (8.5-10.1) 08/29/21 04:56 Corrected Calcium 10.0 mg/dL (8.5-10.1) 08/29/21 04:56 Magnesium 1.8 mg/dL (1.7-2.9) 08/29/21 04:56 Total Bilirubin 0.40 mg/dL (0.2-1.0) 08/29/21 04:56 AST 56 Units/L (15-37) H 08/29/21 04:56 ALT 37 Units/L (12-78) 08/29/21 04:56 Alkaline Phosphatase 58 Units/L (46-116) 08/29/21 04:56 C-Reactive Protein 32.90 mg/L (0-3.0) H 08/26/21 04:30 Total Protein 7.9 g/dL (6.4-8.2) 08/29/21 04:56 Albumin 2.5 g/dL (3.4-5.0) L 08/29/21 04:56 Globulin 5.4 g/dL (2.5-4.5) H 08/29/21 04:56 Albumin/Globulin Ratio 0.5 Ratio (1.1-2.1) L 08/29/21 04:56 Specimen Type Clean catch urine 08/26/21 04:25 Urine Color Yellow (YELLOW) 08/26/21 04:25 Urine Appearance Slightly hazy (CLEAR) 08/26/21 04:25 Urine pH 5.0 (5.0 - 8.0) 08/26/21 04:25 Ur Specific [place] 1.020 (1.000-1.030) 08/26/21 04:25 Urine Protein 3+ (NEGATIVE) 08/26/21 04:25 Urine Glucose (UA) Negative (NEGATIVE) 08/26/21 04:25 Urine Ketones Negative (NEGATIVE) 08/26/21 04:25 Urine Occult Blood Negative (NEGATIVE) 08/26/21 04:25 Urine Nitrite Negative (NEGATIVE) 08/26/21 04:25 Urine Bilirubin Negative (NEGATIVE) 08/26/21 04:25 Urine Urobilinogen Normal (NORMAL) 08/26/21 04:25 Ur Leukocyte Esterase Negative (NEGATIVE) 08/26/21 04:25 Urine RBC 0-2 /HPF (0-3) 08/26/21 04:25 Urine WBC 3-5 /HPF (0-5) 08/26/21 04:25 Ur Squamous Epith Cells Rare /HPF (NEGATIVE) 08/26/21 04:25 Amorphous Sediment 1+ /HPF (NEGATIVE) 08/26/21 04:25 Urine Bacteria 3+ /HPF (NEGATIVE) 08/26/21 04:25 Granular Casts Few /LPF (NEGATIVE) 08/26/21 04:25 Coarse Granular Casts Few /HPF (NEGATIVE) 08/25/21 20:00 Urine Mucus Few /HPF (NEGATIVE) 08/25/21 20:00 Ur Culture Indicated? Yes/culture set up 08/26/21 04:25 Radiology Reviewed: Yes Plan (1) COVID-19: Status: Acute Plan: Covid Protocol (2) CKD (chronic kidney disease) stage 4, GFR 15-29 ml/min: Status: Acute Plan: IV hydration D/C Metformin (3) Anemia of chronic renal failure: Status: Acute Plan: Daily CBC's (4) DM2 (diabetes mellitus, type 2): Status: Acute Plan: Reg insulin sliding scale (5) HTN (hypertension): Status: Acute (6) Dyslipidemia: Status: Acute (7) Hypothyroidism: Status: Acute Plan: resume levothyroxine
[2021-08-29] MEDS: SNACK - Diabetic Appropriate PO SCH ×2 (20:00→22:20)
[2021-08-29] MEDS: NEURONTIN CAP 100 MG PO SCH (21:36)
[2021-08-29] MEDS: PEPCID TAB 20 MG PO SCH (21:36)
[2021-08-30] MEDS: TYLENOL 325 MG TAB PO PRN ×2 (02:50→15:30)
[2021-08-30] MEDS: ASCORBIC ACID INJ MULTI-DOSE VIAL 1,500 MG in NS 50 ML IV 50 ML IV SCH ×4 (03:01→20:37)
[2021-08-30 04:52] LABS: ABG ALLEN TEST POS
[2021-08-30 05:05] LABS: ALBUMIN 1.9 g/dL (3.4-5.0); CALCIUM 8.4 mg/dL (8.5-10.1); COR CA(FOR HYPOALB) 10.1 mg/dL (8.5-10.1); CREATININE 1.57 mg/dL (0.55-1.02); MAGNESIUM 1.9 mg/dL (1.7-2.9); TOTAL PROTEIN 6.8 g/dL (6.4-8.2)
[2021-08-30] MEDS: XOPENEX 1.25 MG/3 ML NEBULE NEB PRN ×3 (05:05→20:30)
[2021-08-30 05:06] LABS: BASOPHILS % (AUTO) 0.5 % (0.2-1.0); EOSINOPHILS % (AUTO) 0.3 % (0.9-2.9); HEMATOCRIT 25.6 % (36.0-47.0); HEMOGLOBIN 8.7 g/dL (12.0-16.0); LYMPHOCYTES # (AUTO) 0.4 X10^3/uL (1.3-2.9); LYMPHOCYTES % (AUTO) 11.4 % (21.0-51.0); MEAN CORPUSCULAR HEMOGLOBIN 23.9 pg (27.0-34.0); MEAN CORPUSCULAR HGB CONC 34.1 g/dL (33.0-35.0); MEAN CORPUSCULAR VOLUME 70.3 fL (80.0-100.0); MEAN PLATELET VOLUME 8.5 fL (7.4-11.0); MONOCYTES # (AUTO) 0.1 x10^3/uL (0.3-0.8); MONOCYTES % (AUTO) 3.5 % (0.0-13.0); NEUTROPHILS # (AUTO) 3.1 x10^3/uL (2.2-4.8); NEUTROPHILS % (AUTO) 84.3 % (42.0-75.0); RED BLOOD COUNT 3.64 X10^6/uL (3.5-5.4); RED CELL DISTRIBUTION WIDTH 19.8 % (11.6-16.5); WHITE BLOOD COUNT 3.7 X10^3/uL (3.6-10.0)
[2021-08-30] MEDS: MAGNESIUM SULFATE 1 GRAM/100 mL PREMIX 1 G/100 ML BAG IV PRN ×2 (05:38→13:10)
[2021-08-30 05:40] LABS: ANISOCYTOSIS SLIGHT; HYPOCHROMASIA SLIGHT; MICROCYTOSIS SLIGHT; PLATELET MORPHOLOGY COMMENT NORMAL (NORMAL)
[2021-08-30 05:41] LABS: BURR CELLS PRESENT; OVALOCYTES PRESENT
--- NOTE | 2021-08-30 06:15 | RAD ---
HISTORYPNEUMONIA, SOBSTUDYCHEST, 1 [id number]/31/2022.TECHNIQUEAP view of the chestFINDINGSCardiac and mediastinal contours are within normal limits. Interval worsening of bilateral multifocal airspace opacities. No definite pleural effusion or pneumothorax.IMPRESSIONInterval worsening of bilateral pneumonia.Electronically signed by: Levy Barger (Aug 30, 2021 06:14:45)
[2021-08-30] MEDS: NovoLIN R (or HumuLIN R) SUBCUT PRN ×3 (06:34→18:20)
[2021-08-30] MEDS: VITAMIN D3 125 mcg (5,000 UNITS) PO SCH (08:25)
[2021-08-30] MEDS: SYNTHROID 88 mcg TAB PO SCH (08:25)
[2021-08-30] MEDS: FERROUS GLUCONATE PO SCH ×2 (08:25→20:37)
[2021-08-30] MEDS: CRESTOR TAB 10 MG PO SCH (08:25)
[2021-08-30] MEDS: LOPRESSOR TAB 25 MG PO SCH ×2 (08:26→20:38)
[2021-08-30] MEDS: VITAMIN A PO SCH (08:26)
[2021-08-30] MEDS: LOVENOX INJ 30 MG SYR SC SCH (08:27)
[2021-08-30] MEDS: ZOSYN VIAL 3.375 GRAMS 3.375 G in NS 100 ML IV + SPIKE MINIBAG* 100 ML IV SCH ×2 (09:08→20:38)
[2021-08-30] MEDS: K-DUR TAB 20 MEQ PO SCH ×2 (09:08→20:38)
[2021-08-30] MEDS: PULMICORT NEB TX 0.5 MG NEB SCH ×2 (09:09→20:30)
[2021-08-30] MEDS: BROVANA IN SCH ×2 (09:09→20:30)
[2021-08-30] MEDS: NS 1,000 ML IV 1,000 ML IV SCH ×2 (09:30→20:36)
--- NOTE | 2021-08-30 09:39 | PCM.PROG ---
Progress Note Progress Note for Day of Date of Exam: 08/30/21 Subjective Subjective: Pt is a 76 year old female admitted for COVID-19 pneumonia with hypoxia. This morning patient has slowed on improving. She is currently utilizing NC on 6L O2. No acute events overnight. Labs/imaging: Wbc 3.7, Hgb 8.7, Urine culture grew out Streptococcus pneumoniae and blood culture neg still at this time. CXR was obtained that revealed: Stable pulmonary opacities/infiltrates associated with COVID-19 pneumonia. Pt is currently on IVF NS@75ml/h, Antibiotics: Zosyn, scheduled Bronchodilators Xopenex and Budesonide, Famotidine 40mg BID, Tussionex prn, immune supporting supplements, supplemental O2, SSI, I/S, Lovenox 30mg BID, Physical therapy, Respiratory therapy consult. Will continue to wean/titrate supplemental oxygen as tolerated. Otherwise continue with current treatment plan. Will closely monitor and follow up labs/imaging in the morning. Will add Levaquin 500 mg IV daily to current regimen. Past Medical Family Social History Past Med/Fam/Surg Hx: No changes since H&P Allergies: Allergies No Known Drug Allergies Allergy (Verified 08/25/21 14:20) Review of Systems ROS: No change since H&P Vital Signs and I&O's Vital Signs: Temperature 100.1 F Pulse Rate 68 Respiratory Rate 34 Blood Pressure 110/55 O2 Sat by Pulse Oximetry 92 Intake and Output: Intake & Output 08/27/21 08/28/21 08/29/21 08/30/21 11:59 11:59 11:59 11:59 Intake Total 2691 / 2691 2519 / 2519 2810 / 2810 2880 / 2880 Output Total 850 / 850 1200 / 1200 3 / 3 Balance 1841 / 1841 1319 / 1319 2807 / 2807 2880 / 2880 Physical Exam Oriented: Normal Eyes: Normal Ear: Normal Nose: Normal Throat: Normal Respiratory: Right, Left, Diminished and Rhonchi Cardiovascular: Normal : Normal Auscultation: Bowel Sounds: Normal Tenderness: Normal Skin: Normal Musculoskeletal: Normal Psychiatric: Normal Mood Description: Calm Affect: Normal Speech Pattern: Clear and Appropriate Laboratory and Diagnostics Result Diagrams: 08/30/21 04:06 08/30/21 04:06 Labs: 08/26/21 04:25 Urine,Clean Catch Urine Culture - Preliminary Streptococcus Pneumoniae 08/25/21 22:39 Blood Blood Culture - Preliminary 08/25/21 22:32 Blood Blood Culture - Preliminary Laboratory WBC 3.7 X10^3/uL (3.6-10.0) 08/30/21 04:06 RBC 3.64 X10^6/uL (3.5-5.4) 08/30/21 04:06 Hgb 8.7 g/dL (12.0-16.0) L 08/30/21 04:06 Hct 25.6 % (36.0-47.0) L 08/30/21 04:06 MCV 70.3 fL (80.0-100.0) L 08/30/21 04:06 MCH 23.9 pg (27.0-34.0) L 08/30/21 04:06 MCHC 34.1 g/dL (33.0-35.0) 08/30/21 04:06 RDW 19.8 % (11.6-16.5) H 08/30/21 04:06 Plt Count 194 X10^3/uL (150.0-450.0) 08/30/21 04:06 Plt Count Comment Adequate (ADEQUATE) 08/30/21 04:06 MPV 8.5 fL (7.4-11.0) 08/30/21 04:06 Neut % (Auto) 84.3 % (42.0-75.0) H 08/30/21 04:06 Lymph % (Auto) 11.4 % (21.0-51.0) L 08/30/21 04:06 [place] % (Auto) 3.5 % (0.0-13.0) 08/30/21 04:06 Eos % (Auto) 0.3 % (0.9-2.9) L 08/30/21 04:06 Baso % (Auto) 0.5 % (0.2-1.0) 08/30/21 04:06 Neut # (Auto) 3.1 x10^3/uL (2.2-4.8) 08/30/21 04:06 Lymph # (Auto) 0.4 X10^3/uL (1.3-2.9) L 08/30/21 04:06 [place] # (Auto) 0.1 x10^3/uL (0.3-0.8) L 08/30/21 04:06 Eos # (Auto) 0.0 x10^3/uL (0.0-0.2) 08/30/21 04:06 Baso # (Auto) 0.0 X10^3/uL (0.0-0.1) 08/30/21 04:06 Absolute Nucleated RBC 0.0 /100WBC 08/30/21 04:06 Plt Morphology Comment Normal (NORMAL) 08/30/21 04:06 RBC Morphology Abnormal (NORMAL) A 08/30/21 04:06 Hypochromasia Slight A 08/30/21 04:06 Anisocytosis Slight A 08/30/21 04:06 Microcytosis Slight A 08/30/21 04:06 Ovalocytes Present 08/30/21 04:06 [place] Cells Present 08/30/21 04:06 D-Dimer 0.61 ug/ml (0.0-0.57) H* 08/25/21 13:19 Sample Site Rr 08/30/21 05:00 ABG pH 7.440 (7.35-7.45) 08/30/21 05:00 ABG pCO2 28.0 mmHg (35.0-45.0) L 08/30/21 05:00 ABG pO2 57.0 mmHg (80.0-100.0) L 08/30/21 05:00 ABG HCO3 19.0 mmol/L (22-26) L 08/30/21 05:00 ABG O2 Saturation 90.0 % (90-100) 08/30/21 05:00 ABG Base Excess -4.0 mmol/L (-2.0-2.0) L 08/30/21 05:00 Arjun Test Pos 08/30/21 05:00 A-a Gradient 186.0 mmHg 08/30/21 05:00 FiO2 39.0 08/30/21 05:00 Blood Gas Comments [facility] 08/30/21 05:00 Sodium 141 mmol/L (136-145) 08/30/21 04:06 Corrected Sodium 143 mmol/L (136-145) 08/30/21 04:06 Potassium 3.3 mmol/L (3.5-5.1) L 08/30/21 04:06 Chloride 107 mmol/L (98-107) 08/30/21 04:06 Carbon Dioxide 19.0 mmol/L (21-32) L 08/30/21 04:06 BUN 26 mg/dL (7-18) H 08/30/21 04:06 Creatinine 1.57 mg/dL (0.55-1.02) H 08/30/21 04:06 Est GFR (MDRD) Af Amer 41 (>60) L 08/30/21 04:06 Est GFR (MDRD) Non-Af 34 (>60) L 08/30/21 04:06 Glucose 204 mg/dL (65-99) H 08/30/21 04:06 POC Glucose (mg/dL) 199 mg/dL (65-99) H 08/30/21 06:25 Calcium 8.4 mg/dL (8.5-10.1) L 08/30/21 04:06 Corrected Calcium 10.1 mg/dL (8.5-10.1) 08/30/21 04:06 Magnesium 1.9 mg/dL (1.7-2.9) 08/30/21 04:06 Total Bilirubin 0.30 mg/dL (0.2-1.0) 08/30/21 04:06 AST 38 Units/L (15-37) H 08/30/21 04:06 ALT 26 Units/L (12-78) 08/30/21 04:06 Alkaline Phosphatase 47 Units/L (46-116) 08/30/21 04:06 C-Reactive Protein 126.40 mg/L (0-3.0) H 08/30/21 04:06 Total Protein 6.8 g/dL (6.4-8.2) 08/30/21 04:06 Albumin 1.9 g/dL (3.4-5.0) L 08/30/21 04:06 Globulin 4.9 g/dL (2.5-4.5) H 08/30/21 04:06 Albumin/Globulin Ratio 0.4 Ratio (1.1-2.1) L 08/30/21 04:06 Specimen Type Clean catch urine 08/26/21 04:25 Urine Color Yellow (YELLOW) 08/26/21 04:25 Urine Appearance Slightly hazy (CLEAR) 08/26/21 04:25 Urine pH 5.0 (5.0 - 8.0) 08/26/21 04:25 Ur Specific [place] 1.020 (1.000-1.030) 08/26/21 04:25 Urine Protein 3+ (NEGATIVE) 08/26/21 04:25 Urine Glucose (UA) Negative (NEGATIVE) 08/26/21 04:25 Urine Ketones Negative (NEGATIVE) 08/26/21 04:25 Urine Occult Blood Negative (NEGATIVE) 08/26/21 04:25 Urine Nitrite Negative (NEGATIVE) 08/26/21 04:25 Urine Bilirubin Negative (NEGATIVE) 08/26/21 04:25 Urine Urobilinogen Normal (NORMAL) 08/26/21 04:25 Ur Leukocyte Esterase Negative (NEGATIVE) 08/26/21 04:25 Urine RBC 0-2 /HPF (0-3) 08/26/21 04:25 Urine WBC 3-5 /HPF (0-5) 08/26/21 04:25 Ur Squamous Epith Cells Rare /HPF (NEGATIVE) 08/26/21 04:25 Amorphous Sediment 1+ /HPF (NEGATIVE) 08/26/21 04:25 Urine Bacteria 3+ /HPF (NEGATIVE) 08/26/21 04:25 Granular Casts Few /LPF (NEGATIVE) 08/26/21 04:25 Coarse Granular Casts Few /HPF (NEGATIVE) 08/25/21 20:00 Urine Mucus Few /HPF (NEGATIVE) 08/25/21 20:00 Ur Culture Indicated? Yes/culture set up 08/26/21 04:25 Radiology Reviewed: Yes Plan (1) COVID-19: Status: Acute Plan: Covid Protocol (2) Anemia of chronic renal failure: Status: Acute Plan: Daily CBC's (3) DM2 (diabetes mellitus, type 2): Status: Acute Plan: Reg insulin sliding scale (4) HTN (hypertension): Status: Acute (5) Dyslipidemia: Status: Acute (6) Hypothyroidism: Status: Acute Plan: resume levothyroxine (7) CKD (chronic kidney disease) stage 4, GFR 15-29 ml/min: Status: Acute Plan: IV hydration D/C Metformin
[2021-08-30] MEDS: DIFLUCAN 100 MG IV (MIX by PHARMACY)* 100 MG/50 ML BAG IV SCH (11:00)
--- NOTE | 2021-08-30 13:04 | DR.CONSULT ---
CONSULT Consultation for Day of: Date: 08/30/21 Allergies Allergies Allergy/AdvReac Type Severity Reaction Status Date / Time No Known Drug Allergies Allergy Verified 08/25/21 14:20 Past Medical History Past Medical History: Anemia, Diabetes, Dyslipidemia, Hypertension, Hypothyroidism and Renal Disease; denies Migraines Past Surgical History Surgical History: No History Family History Family Medical History: Diabetes Mellitus, [place], Coronary Artery Disease, Heart Failure and Hypertension Social History Does patient currently use any type of tobacco product: No Have you used tobacco products in the last 12 months: No Type of Tobacco Use: None Alcohol Use: None Drug Use: None Medications Home Medications: No Known Drug Allergies Allergy (Verified 08/25/21 14:20) CONTINUE taking the following medications albuterol 90 mcg INHALATION Q4H PRN 08/25/21 [History] dulaglutide [Trulicity] 1.5 mg SUBCUT WEEKLY 08/25/21 [History] epoetin norah [Procrit] 1 unit SUBCUT Q14D 08/25/21 [History] ferrous fumarate [Ferrocite] 324 mg PO BID 08/25/21 [History] levothyroxine 88 mcg PO DAILY 08/25/21 [History] meclizine 25 mg PO DAILY PRN 08/25/21 [History] metformin 1,000 mg PO BID 08/25/21 [History] metoprolol tartrate 25 mg PO BID 08/25/21 [History] potassium chloride 20 meq PO BID 08/25/21 [History] rosuvastatin 40 mg PO DAILY 08/25/21 [History] triamterene-hydrochlorothiazid 1 tab PO DAILY 08/25/21 [History] Physical Exam Vital Signs: Temperature 100.1 F Pulse Rate 68 Respiratory Rate 34 Blood Pressure 110/55 O2 Sat by Pulse Oximetry 92 Plan (1) COVID-19: Status: Acute Narrative Support Text: Patient case discussed with Dr. Shai Scruggs Patient is a 76-year-old female with multiple comorbidities who has been admitted in the ICU for hypoxic respiratory failure secondary to ARDS from Covid pneumonia. Her clinical status has been declining since last 4 days. She was on 6 L oxygen via nasal cannula. ABG reveals a pH of 7.44/PCO2 of 28/PaO2 of 57 and a bicarb of 19. She is getting empiric antibiotics, nebulizers, DVT prophylaxis, GI prophylaxis. She had a temp of 102.6 Fahrenheit today. She was previously on doxycycline and Zosyn. She was switched to levofloxacin and Zosyn was continued. Her blood work shows anemia with a hemoglobin of 8.7, hypokalemia/3.3, АНДРЕЙ with a creatinine of 1.57 and hyperglycemia of 204. She is tachypneic and hypoxic. Repeat blood glucose 365. BN peptide 441. Urine cultures tested positive for Streptococcus. Stat CTA was requested and it reveals diffuse groundglass opacities. No clear pulmonary emboli seen. Unfortunately I do not have access to the images. Plan: Switch to high flow Repeat ABG in 2 hours, if remains hypoxic titrate high flow accordingly or switch to BiPAP Prefer BiPAP nightly and as needed during the day. Highly suspect concurrent obstructive sleep apnea Elevated BN peptide, monitor input and output. Keep negative fluid balance. Caution with diuretics given АНДРЕЙ Agree with broad-spectrum antibiotics (2) Anemia of chronic renal failure: Status: Acute Plan: Hold nephrotoxic drugs. Fluid management. Electrolyte replacement protocol. (3) DM2 (diabetes mellitus, type 2): Status: Acute Plan: Poorly controlled Consider insulin drip for hyperglycemia (4) HTN (hypertension): Status: Acute (5) Dyslipidemia: Status: Acute (6) Hypothyroidism: Status: Acute (7) CKD (chronic kidney disease) stage 4, GFR 15-29 ml/min: Status: Acute (8) UTI (urinary tract infection): Status: Acute (9) Anemia: Status: Acute (10) Thrombocytopenia: Status: Acute (11) Tachypnea: Status: Acute (12) Respiratory alkalosis: Status: Acute (13) Fever: Status: Acute (14) Hypoalbuminemia: Status: Acute (15) Hypernatremia: Status: Acute (16) Acute respiratory failure with hypoxia: Status: Acute
[2021-08-30] MEDS ORDERED: LEVAQUIN PREMIX IV 500 MG 500 MG/100 ML BAG IV SCH (14:00)
[2021-08-30] MEDS: LEVAQUIN PREMIX IV 250 MG 250 MG/50 ML BAG IV SCH (14:30)
[2021-08-30] MEDS ORDERED: NS 100 ML IV 100 ML ONE (16:27)
--- NOTE | 2021-08-30 17:29 | CT ---
HISTORYSOB/PNEUMONIA/ELEVATED DDIMERSTUDYCTA CHESTCOMPARISONChest radiograph, August 30, 2021TECHNIQUEAxial CT images of the chest were obtained after the administration of IV contrast utilizing a CTA protocol. 3D MIPS were performed and reviewed for further evaluation.Radiation dose: 576.30 mGy-cm total DLPLimited by patient motion.FINDINGSNo significant pericardial effusion.No mediastinal or hilar lymphadenopathy.Aorta is normal in caliber without dissection.Pulmonary arteries are normal in caliber without filling defects to suggest a pulmonary embolus.Airways are widely patent.Thyroid appears normal.No pleural effusion.No focal infiltrate.No pneumothorax.Diffuse bilateral ground-glass airspace opacities throughout the lung parenchyma.Imaged portion of the upper abdomen is unremarkable.No acute osseous abnormality.IMPRESSION1. Diffuse bilateral ground-glass airspace opacities throughout the lung parenchyma are consistent with the known history of a COVID-19 respiratory infection.2. No pulmonary embolus identified; limited by patient motion.Electronically signed by: Nikolai Díaz (Aug 30, 2021 17:28:19)
[2021-08-30] MEDS: SNACK - Diabetic Appropriate PO SCH (20:38)
[2021-08-30] MEDS: NEURONTIN CAP 100 MG PO SCH (20:38)
[2021-08-30] MEDS: PEPCID TAB 20 MG PO SCH (20:38)
[2021-08-31] MEDS: ASCORBIC ACID INJ MULTI-DOSE VIAL 1,500 MG in NS 50 ML IV 50 ML IV SCH ×4 (02:09→21:07)
[2021-08-31] MEDS: NS 1,000 ML IV 1,000 ML IV SCH ×2 (02:53→10:30)
[2021-08-31] MEDS: TYLENOL 325 MG TAB PO PRN ×2 (03:47→22:45)
[2021-08-31] MEDS: XOPENEX 1.25 MG/3 ML NEBULE NEB PRN ×2 (05:17→14:30)
[2021-08-31 05:26] LABS: ABG ALLEN TEST POS; ABG BASE EXCESS -3.4 mmol/L (-2.0-2.0); ABG HCO3 19.2 mmol/L (22-26)
[2021-08-31 05:36] LABS: BASOPHILS % (AUTO) 0.5 % (0.2-1.0); EOSINOPHILS % (AUTO) 0.2 % (0.9-2.9); HEMATOCRIT 25.1 % (36.0-47.0); HEMOGLOBIN 8.5 g/dL (12.0-16.0); LYMPHOCYTES # (AUTO) 0.4 X10^3/uL (1.3-2.9); LYMPHOCYTES % (AUTO) 8.6 % (21.0-51.0); MEAN CORPUSCULAR HEMOGLOBIN 23.9 pg (27.0-34.0); MEAN CORPUSCULAR HGB CONC 33.9 g/dL (33.0-35.0); MEAN CORPUSCULAR VOLUME 70.4 fL (80.0-100.0); MEAN PLATELET VOLUME 8.2 fL (7.4-11.0); MONOCYTES # (AUTO) 0.1 x10^3/uL (0.3-0.8); MONOCYTES % (AUTO) 2.8 % (0.0-13.0); NEUTROPHILS # (AUTO) 3.6 x10^3/uL (2.2-4.8); NEUTROPHILS % (AUTO) 87.9 % (42.0-75.0); RED BLOOD COUNT 3.56 X10^6/uL (3.5-5.4); WHITE BLOOD COUNT 4.1 X10^3/uL (3.6-10.0)
[2021-08-31 05:44] LABS: ALBUMIN 1.9 g/dL (3.4-5.0); CARBON DIOXIDE 19.9 mmol/L (21-32); COR CA(FOR HYPOALB) 9.7 mg/dL (8.5-10.1); CREATININE 1.5 mg/dL (0.55-1.02); TOTAL PROTEIN 6.9 g/dL (6.4-8.2)
[2021-08-31] MEDS: NovoLIN R (or HumuLIN R) SUBCUT PRN ×4 (05:52→21:06)
--- NOTE | 2021-08-31 06:03 | RAD ---
HISTORYPNEUMONIA, SOBSTUDYCHEST, 1 VIEWCOMPARISONCTA chest and chest radiograph from 1 day prior.TECHNIQUEAP view of the chestFINDINGSCardiac and mediastinal contours are within normal limits. No significant change in bilateral airspace and interstitial opacities. No definite pleural effusion or pneumothorax.IMPRESSIONNo significant change.Electronically signed by: Levy Barger (Aug 31, 2021 06:02:10)
[2021-08-31 06:17] LABS: BAND NEUTROPHILS % 1 % (0-10); PLATELET MORPHOLOGY COMMENT NORMAL (NORMAL)
[2021-08-31 06:18] LABS: ANISOCYTOSIS SLIGHT; BURR CELLS PRESENT; HYPOCHROMASIA 1+; OVALOCYTES PRESENT
[2021-08-31] MEDS: BROVANA IN SCH ×2 (09:02→21:22)
[2021-08-31] MEDS ORDERED: DULCOLAX SUPPOSITORY 10 MG RECTAL ONE (09:02)
[2021-08-31] MEDS: PULMICORT NEB TX 0.5 MG NEB SCH ×2 (09:02→21:22)
[2021-08-31] MEDS: DIFLUCAN 100 MG IV (MIX by PHARMACY)* 100 MG/50 ML BAG IV SCH (09:20)
[2021-08-31] MEDS: LEVAQUIN PREMIX IV 250 MG 250 MG/50 ML BAG IV SCH ×2 (09:20→10:50)
[2021-08-31] MEDS: VITAMIN A PO SCH (09:45)
[2021-08-31] MEDS: LOPRESSOR TAB 25 MG PO SCH ×2 (09:45→21:06)
[2021-08-31] MEDS: SYNTHROID 88 mcg TAB PO SCH (09:45)
[2021-08-31] MEDS: CRESTOR TAB 10 MG PO SCH (09:45)
[2021-08-31] MEDS: K-DUR TAB 20 MEQ PO SCH ×2 (09:45→21:05)
[2021-08-31] MEDS: ZOSYN VIAL 3.375 GRAMS 3.375 G in NS 100 ML IV + SPIKE MINIBAG* 100 ML IV SCH ×3 (09:45→22:00)
[2021-08-31] MEDS: FERROUS GLUCONATE PO SCH ×2 (09:45→21:05)
[2021-08-31] MEDS: LOVENOX INJ 30 MG SYR SC SCH (09:45)
[2021-08-31] MEDS: VITAMIN D3 125 mcg (5,000 UNITS) PO SCH (09:45)
--- NOTE | 2021-08-31 10:46 | PCM.PROG ---
Progress Note Progress Note for Day of Date of Exam: 08/31/21 Subjective Subjective: Pt is a 76-year-old female admitted for COVID-19 pneumonia with hypoxia. This morning patient has slowed on improving but she is alert and speaking this am. She does report an improvement in the way she feels. She is currently utilizing NC on 5L O2. No acute events overnight. Labs/imaging: Wbc 4.1, Hgb 8.5, Urine culture grew out Streptococcus pneumoniae and blood culture neg still at this time. CXR was obtained that revealed: Stable pulmonary opacities/infiltrates associated with COVID-19 pneumonia. Pt is currently on IVF NS@75ml/hr but I am decreasing it to 30 ml/hr this am, Antibiotics: Zosyn and Levaquin, scheduled Bronchodilators Xopenex and Budesonide, Famotidine 40mg BID, Tussionex prn, immune supporting supplements, supplemental O2, SSI, I/S, Lovenox 30mg BID, Physical therapy, Respiratory therapy consult. Will continue to wean/titrate supplemental oxygen as tolerated. Otherwise continue with current treatment plan. Will closely monitor and follow up labs/imaging in the morning. Elevated BNP yesterday and today, will give Lasix 40 mg IV BID x 24 hr's today. Patient also recieves Procrit 20,000 units Q 2 weeks for anemia, will check to see when last dose was given. Past Medical Family Social History Past Med/Fam/Surg Hx: No changes since H&P Allergies: Allergies No Known Drug Allergies Allergy (Verified 08/25/21 14:20) Review of Systems ROS: No change since H&P Vital Signs and I&O's Vital Signs: Temperature 97.8 F Pulse Rate 78 Respiratory Rate 34 Blood Pressure 144/62 O2 Sat by Pulse Oximetry 96 Intake and Output: Intake & Output 08/28/21 08/29/21 08/30/21 08/31/21 11:59 11:59 11:59 11:59 Intake Total 2519 / 2519 2810 / 2810 2880 / 2880 2340 / 2340 Output Total 1200 / 1200 3 / 3 Balance 1319 / 1319 2807 / 2807 2880 / 2880 2340 / 2340 Physical Exam Oriented: Normal Eyes: Normal Ear: Normal Nose: Normal Throat: Normal Respiratory: Right, Left, Diminished and Rhonchi Cardiovascular: Normal : Normal Auscultation: Bowel Sounds: Normal Tenderness: Normal Skin: Normal Musculoskeletal: Normal Psychiatric: Normal Mood Description: Calm Affect: Normal Speech Pattern: Clear and Appropriate Laboratory and Diagnostics Result Diagrams: 08/31/21 04:27 08/31/21 04:27 Labs: 08/26/21 04:25 Urine,Clean Catch Urine Culture - Preliminary Streptococcus Pneumoniae 08/25/21 22:39 Blood Blood Culture - Preliminary 08/25/21 22:32 Blood Blood Culture - Preliminary Laboratory WBC 4.1 X10^3/uL (3.6-10.0) 08/31/21 04:27 RBC 3.56 X10^6/uL (3.5-5.4) 08/31/21 04:27 Hgb 8.5 g/dL (12.0-16.0) L 08/31/21 04:27 Hct 25.1 % (36.0-47.0) L 08/31/21 04:27 MCV 70.4 fL (80.0-100.0) L 08/31/21 04:27 MCH 23.9 pg (27.0-34.0) L 08/31/21 04:27 MCHC 33.9 g/dL (33.0-35.0) 08/31/21 04:27 RDW 20.0 % (11.6-16.5) H 08/31/21 04:27 Plt Count 242 X10^3/uL (150.0-450.0) 08/31/21 04:27 Plt Count Comment Adequate (ADEQUATE) 08/31/21 04:27 MPV 8.2 fL (7.4-11.0) 08/31/21 04:27 Neut % (Auto) 87.9 % (42.0-75.0) H 08/31/21 04:27 Lymph % (Auto) 8.6 % (21.0-51.0) L 08/31/21 04:27 Day % (Auto) 2.8 % (0.0-13.0) 08/31/21 04:27 Eos % (Auto) 0.2 % (0.9-2.9) L 08/31/21 04:27 Baso % (Auto) 0.5 % (0.2-1.0) 08/31/21 04:27 Neut # (Auto) 3.6 x10^3/uL (2.2-4.8) 08/31/21 04:27 Lymph # (Auto) 0.4 X10^3/uL (1.3-2.9) L 08/31/21 04:27 Day # (Auto) 0.1 x10^3/uL (0.3-0.8) L 08/31/21 04:27 Eos # (Auto) 0.0 x10^3/uL (0.0-0.2) 08/31/21 04:27 Baso # (Auto) 0.0 X10^3/uL (0.0-0.1) 08/31/21 04:27 Absolute Nucleated RBC 0.1 /100WBC 08/31/21 04:27 Total Counted 100 08/31/21 04:27 Neutrophils % (Manual) 88 % (39-76) H 08/31/21 04:27 Band Neutrophils % 1 % (0-10) 08/31/21 04:27 Lymphocytes % (Manual) 10 % (13-43) L 08/31/21 04:27 Monocytes % (Manual) 1 % (4-9) L 08/31/21 04:27 Plt Morphology Comment Normal (NORMAL) 08/31/21 04:27 RBC Morphology Abnormal (NORMAL) A 08/31/21 04:27 Hypochromasia 1+ A 08/31/21 04:27 Anisocytosis Slight A 08/31/21 04:27 Microcytosis Slight A 08/30/21 04:06 Ovalocytes Present 08/31/21 04:27 [place] Cells Present 08/31/21 04:27 D-Dimer 0.61 ug/ml (0.0-0.57) H* 08/25/21 13:19 Sample Site Rrad 08/31/21 05:22 ABG pH 7.460 (7.35-7.45) H 08/31/21 05:22 ABG pCO2 27.0 mmHg (35.0-45.0) L 08/31/21 05:22 ABG pO2 65.0 mmHg (80.0-100.0) L 08/31/21 05:22 ABG HCO3 19.2 mmol/L (22-26) L 08/31/21 05:22 ABG O2 Saturation 94.0 % (90-100) 08/31/21 05:22 ABG Base Excess -3.4 mmol/L (-2.0-2.0) L 08/31/21 05:22 Arjun Test Pos 08/31/21 05:22 A-a Gradient 215.0 mmHg 08/31/21 05:22 FiO2 44.0 08/31/21 05:22 Blood Gas Comments Dolores well ms 08/31/21 05:22 Sodium 143 mmol/L (136-145) 08/31/21 04:27 Corrected Sodium 146 mmol/L (136-145) H 08/31/21 04:27 Potassium 3.2 mmol/L (3.5-5.1) L 08/31/21 04:27 Chloride 109 mmol/L (98-107) H 08/31/21 04:27 Carbon Dioxide 19.9 mmol/L (21-32) L 08/31/21 04:27 BUN 25 mg/dL (7-18) H 08/31/21 04:27 Creatinine 1.50 mg/dL (0.55-1.02) H 08/31/21 04:27 Est GFR (MDRD) Af Amer 44 (>60) L 08/31/21 04:27 Est GFR (MDRD) Non-Af 36 (>60) L 08/31/21 04:27 Glucose 241 mg/dL (65-99) H 08/31/21 04:27 POC Glucose (mg/dL) 235 mg/dL (65-99) H 08/31/21 05:15 Calcium 8.0 mg/dL (8.5-10.1) L 08/31/21 04:27 Corrected Calcium 9.7 mg/dL (8.5-10.1) 08/31/21 04:27 Magnesium 2.1 mg/dL (1.7-2.9) 08/31/21 04:27 Total Bilirubin 0.30 mg/dL (0.2-1.0) 08/31/21 04:27 AST 39 Units/L (15-37) H 08/31/21 04:27 ALT 29 Units/L (12-78) 08/31/21 04:27 Alkaline Phosphatase 55 Units/L (46-116) 08/31/21 04:27 C-Reactive Protein 180.70 mg/L (0-3.0) H 08/31/21 04:27 B-Natriuretic Peptide 496 pg/mL (0-79) H 08/31/21 04:27 Total Protein 6.9 g/dL (6.4-8.2) 08/31/21 04:27 Albumin 1.9 g/dL (3.4-5.0) L 08/31/21 04:27 Globulin 5.0 g/dL (2.5-4.5) H 08/31/21 04:27 Albumin/Globulin Ratio 0.4 Ratio (1.1-2.1) L 08/31/21 04:27 Specimen Type Clean catch urine 08/26/21 04:25 Urine Color Yellow (YELLOW) 08/26/21 04:25 Urine Appearance Slightly hazy (CLEAR) 08/26/21 04:25 Urine pH 5.0 (5.0 - 8.0) 08/26/21 04:25 Ur Specific [place] 1.020 (1.000-1.030) 08/26/21 04:25 Urine Protein 3+ (NEGATIVE) 08/26/21 04:25 Urine Glucose (UA) Negative (NEGATIVE) 08/26/21 04:25 Urine Ketones Negative (NEGATIVE) 08/26/21 04:25 Urine Occult Blood Negative (NEGATIVE) 08/26/21 04:25 Urine Nitrite Negative (NEGATIVE) 08/26/21 04:25 Urine Bilirubin Negative (NEGATIVE) 08/26/21 04:25 Urine Urobilinogen Normal (NORMAL) 08/26/21 04:25 Ur Leukocyte Esterase Negative (NEGATIVE) 08/26/21 04:25 Urine RBC 0-2 /HPF (0-3) 08/26/21 04:25 Urine WBC 3-5 /HPF (0-5) 08/26/21 04:25 Ur Squamous Epith Cells Rare /HPF (NEGATIVE) 08/26/21 04:25 Amorphous Sediment 1+ /HPF (NEGATIVE) 08/26/21 04:25 Urine Bacteria 3+ /HPF (NEGATIVE) 08/26/21 04:25 Granular Casts Few /LPF (NEGATIVE) 08/26/21 04:25 Coarse Granular Casts Few /HPF (NEGATIVE) 08/25/21 20:00 Urine Mucus Few /HPF (NEGATIVE) 08/25/21 20:00 Ur Culture Indicated? Yes/culture set up 08/26/21 04:25 Radiology Reviewed: Yes Plan (1) Elevated brain natriuretic peptide (BNP) level: Status: Acute Plan: Lasix 40 mg IV bid x 24 hrs (2) Hypokalemia: Status: Acute Plan: Potassium replacement protocol today. (3) COVID-19: Status: Acute Plan: Covid Protocol (4) Anemia of chronic renal failure: Status: Acute Plan: Daily CBC's (5) DM2 (diabetes mellitus, type 2): Status: Acute Plan: Reg insulin sliding scale (6) HTN (hypertension): Status: Acute (7) Dyslipidemia: Status: Acute (8) UTI (urinary tract infection): Status: Acute (9) Anemia: Status: Acute (10) Thrombocytopenia: Status: Acute (11) Tachypnea: Status: Acute (12) Respiratory alkalosis: Status: Acute (13) Fever: Status: Acute (14) Hypoalbuminemia: Status: Acute (15) Hypernatremia: Status: Acute (16) Acute respiratory failure with hypoxia: Status: Acute (17) CKD (chronic kidney disease) stage 4, GFR 15-29 ml/min: Status: Acute Plan: IV hydration D/C Metformin (18) Hypothyroidism: Status: Acute Plan: resume levothyroxine
[2021-08-31] MEDS: LASIX IVP SCH ×2 (11:00→21:06)
[2021-08-31] MEDS ORDERED: PROCRIT or EPOGEN VIAL 20,000 UNITS SC ONE (12:50)
[2021-08-31] MEDS ORDERED: ASCORBIC ACID INJ MULTI-DOSE VIAL IV ONE (14:32)
[2021-08-31] MEDS: SNACK - Diabetic Appropriate PO SCH (20:00)
[2021-08-31] MEDS: NEURONTIN CAP 100 MG PO SCH (21:05)
[2021-08-31] MEDS: PEPCID TAB 20 MG PO SCH (21:05)
[2021-09-01] MEDS: NS 1,000 ML IV 1,000 ML IV SCH (01:15)
[2021-09-01] MEDS: ASCORBIC ACID INJ MULTI-DOSE VIAL 1,500 MG in NS 50 ML IV 50 ML IV SCH ×4 (03:20→20:31)
[2021-09-01] MEDS: XOPENEX 1.25 MG/3 ML NEBULE NEB PRN ×3 (05:14→21:00)
[2021-09-01 05:18] LABS: ABG ALLEN TEST POS; ABG BASE EXCESS -0.7 mmol/L (-2.0-2.0); ABG HCO3 23.4 mmol/L (22-26)
--- NOTE | 2021-09-01 05:19 | RAD ---
PROCEDURE: Chest X-ray 1 View .HISTORY: COVID PNEUMONIA, HYPOXIA .TECHNIQUE: AP view .COMPARISON: 08/31/2021.TECHNICAL QUALITY: Satisfactory .FINDINGS:Unremarkable cardio mediastinal silhouette and normal central vascularity.Moderate patchy pneumonia bilaterally similar to previous study with no pleural fluid or pneumothorax.IMPRESSION:Unchanged moderate bilateral pneumonia.Electronically signed by: Satinder Cottrell (Sep 01, 2021 05:18:25)
[2021-09-01 05:30] LABS: BASOPHILS % (AUTO) 0.4 % (0.2-1.0); EOSINOPHILS % (AUTO) 0.5 % (0.9-2.9); HEMATOCRIT 25.4 % (36.0-47.0); HEMOGLOBIN 8.6 g/dL (12.0-16.0); LYMPHOCYTES # (AUTO) 0.4 X10^3/uL (1.3-2.9); MEAN CORPUSCULAR HEMOGLOBIN 23.9 pg (27.0-34.0); MEAN CORPUSCULAR HGB CONC 33.7 g/dL (33.0-35.0); MEAN CORPUSCULAR VOLUME 70.9 fL (80.0-100.0); MEAN PLATELET VOLUME 7.9 fL (7.4-11.0); MONOCYTES # (AUTO) 0.1 x10^3/uL (0.3-0.8); MONOCYTES % (AUTO) 3.7 % (0.0-13.0); NEUTROPHILS % (AUTO) 85.4 % (42.0-75.0); RED BLOOD COUNT 3.59 X10^6/uL (3.5-5.4); RED CELL DISTRIBUTION WIDTH 20.1 % (11.6-16.5); WHITE BLOOD COUNT 3.5 X10^3/uL (3.6-10.0)
[2021-09-01 05:37] LABS: ALBUMIN 1.9 g/dL (3.4-5.0); CALCIUM 8.9 mg/dL (8.5-10.1); CARBON DIOXIDE 22.2 mmol/L (21-32); COR CA(FOR HYPOALB) 10.6 mg/dL (8.5-10.1); CREATININE 1.73 mg/dL (0.55-1.02); MAGNESIUM 1.7 mg/dL (1.7-2.9); TOTAL PROTEIN 7.6 g/dL (6.4-8.2)
[2021-09-01 05:58] LABS: ANISOCYTOSIS 1+; HYPOCHROMASIA 1+; MICROCYTOSIS SLIGHT; OVALOCYTES PRESENT; PLATELET MORPHOLOGY COMMENT NORMAL (NORMAL)
[2021-09-01] MEDS: MAGNESIUM SULFATE 1 GRAM/100 mL PREMIX 1 G/100 ML BAG IV PRN ×2 (06:13→11:47)
[2021-09-01] MEDS: NovoLIN R (or HumuLIN R) SUBCUT PRN ×4 (06:23→20:50)
[2021-09-01] MEDS: LASIX IVP SCH ×2 (08:20→20:29)
[2021-09-01] MEDS: LOVENOX INJ 30 MG SYR SC SCH (08:20)
[2021-09-01] MEDS: FERROUS GLUCONATE PO SCH ×2 (08:21→20:31)
[2021-09-01] MEDS: CRESTOR TAB 10 MG PO SCH (08:22)
[2021-09-01] MEDS: VITAMIN D3 125 mcg (5,000 UNITS) PO SCH (08:22)
[2021-09-01] MEDS: SYNTHROID 88 mcg TAB PO SCH (08:23)
[2021-09-01] MEDS: PULMICORT NEB TX 0.5 MG NEB SCH ×2 (08:25→21:00)
[2021-09-01] MEDS: BROVANA IN SCH ×2 (08:25→21:00)
[2021-09-01] MEDS ORDERED: POTASSIUM CHLORIDE IV NR ×2 (09:00)
[2021-09-01] MEDS ORDERED: NS IV NR ×2 (09:00)
[2021-09-01] MEDS: K-DUR TAB 20 MEQ PO SCH ×2 (09:27→20:50)
[2021-09-01] MEDS: LEVAQUIN PREMIX IV 250 MG 250 MG/50 ML BAG IV SCH (09:27)
[2021-09-01] MEDS: LOPRESSOR TAB 25 MG PO SCH ×2 (09:28→20:31)
[2021-09-01] MEDS: VITAMIN A PO SCH (09:28)
[2021-09-01] MEDS: ZOSYN VIAL 3.375 GRAMS 3.375 G in NS 100 ML IV + SPIKE MINIBAG* 100 ML IV SCH ×2 (09:49→22:00)
[2021-09-01] MEDS: MERREM VIAL 1 G in NS 100 ML IV + SPIKE MINIBAG* 100 ML IV SCH ×2 (09:49→20:50)
[2021-09-01] MEDS: NS + KCL 20 MEQ/L 1,000 ML IV SCH (09:49)
[2021-09-01] MEDS: DIFLUCAN 100 MG IV (MIX by PHARMACY)* 100 MG/50 ML BAG IV SCH (09:49)
[2021-09-01] MEDS: TYLENOL 325 MG TAB PO PRN (18:22)
[2021-09-01] MEDS: SNACK - Diabetic Appropriate PO SCH (20:00)
[2021-09-01] MEDS: PEPCID TAB 20 MG PO SCH (20:31)
[2021-09-01] MEDS: NEURONTIN CAP 100 MG PO SCH (20:50)
[2021-09-02] MEDS: ASCORBIC ACID INJ MULTI-DOSE VIAL 1,500 MG in NS 50 ML IV 50 ML IV SCH ×4 (03:29→20:52)
[2021-09-02 05:12] LABS: ABG HCO3 27.8 mmol/L (22-26)
[2021-09-02 05:13] LABS: ABG ALLEN TEST POS
[2021-09-02 05:38] LABS: BASOPHILS % (AUTO) 0.5 % (0.2-1.0); EOSINOPHILS % (AUTO) 1.4 % (0.9-2.9); HEMATOCRIT 26.6 % (36.0-47.0); LYMPHOCYTES # (AUTO) 0.2 X10^3/uL (1.3-2.9); LYMPHOCYTES % (AUTO) 6.7 % (21.0-51.0); MEAN CORPUSCULAR HEMOGLOBIN 23.7 pg (27.0-34.0); MEAN CORPUSCULAR HGB CONC 33.9 g/dL (33.0-35.0); MEAN CORPUSCULAR VOLUME 69.8 fL (80.0-100.0); MONOCYTES # (AUTO) 0.1 x10^3/uL (0.3-0.8); MONOCYTES % (AUTO) 3.7 % (0.0-13.0); NEUTROPHILS % (AUTO) 87.7 % (42.0-75.0); RED BLOOD COUNT 3.81 X10^6/uL (3.5-5.4); RED CELL DISTRIBUTION WIDTH 19.4 % (11.6-16.5); WHITE BLOOD COUNT 3.4 X10^3/uL (3.6-10.0)
[2021-09-02 05:42] LABS: ALBUMIN 1.8 g/dL (3.4-5.0); CALCIUM 9.2 mg/dL (8.5-10.1); CARBON DIOXIDE 25.3 mmol/L (21-32); CREATININE 1.73 mg/dL (0.55-1.02); MAGNESIUM 1.8 mg/dL (1.7-2.9); TOTAL PROTEIN 7.8 g/dL (6.4-8.2)
--- NOTE | 2021-09-02 06:16 | RAD ---
HISTORYCOVID PNEUMONIASTUDYCHEST, 1 VIEWCOMPARISONOne day prior.TECHNIQUEAP view of the chestFINDINGSCardiac and mediastinal contours are within normal limits. No significant change in moderate bilateral airspace and interstitial opacities diffusely throughout the lungs. No definite pleural effusion or pneumothorax.IMPRESSIONNo significant change.Electronically signed by: Levy Barger (Sep 02, 2021 06:15:51)
[2021-09-02 06:24] LABS: MICROCYTOSIS 1+; PLATELET MORPHOLOGY COMMENT NORMAL (NORMAL)
[2021-09-02] MEDS: K-DUR TAB 20 MEQ PO SCH ×2 (08:28→20:52)
[2021-09-02] MEDS: FERROUS GLUCONATE PO SCH ×2 (08:28→20:52)
[2021-09-02] MEDS: LOVENOX INJ 30 MG SYR SC SCH (08:28)
[2021-09-02] MEDS: CRESTOR TAB 10 MG PO SCH (08:28)
[2021-09-02] MEDS: LEVAQUIN PREMIX IV 250 MG 250 MG/50 ML BAG IV SCH (08:28)
[2021-09-02] MEDS: LOPRESSOR TAB 25 MG PO SCH ×2 (08:28→20:52)
[2021-09-02] MEDS: VITAMIN D3 125 mcg (5,000 UNITS) PO SCH (08:29)
[2021-09-02] MEDS: VITAMIN A PO SCH (08:29)
[2021-09-02] MEDS: SYNTHROID 88 mcg TAB PO SCH (08:29)
[2021-09-02] MEDS: NS + KCL 20 MEQ/L 1,000 ML IV SCH (08:40)
--- NOTE | 2021-09-02 08:48 | PCM.PROG ---
Progress Note Progress Note for Day of Date of Exam: 09/01/21 Subjective Subjective: Breathing much improved this am. Patient is feeling much better overall. No acute problems overnight. Past Medical Family Social History Past Med/Fam/Surg Hx: No changes since H&P Allergies: Allergies No Known Drug Allergies Allergy (Verified 08/25/21 14:20) Review of Systems ROS: No change since H&P Vital Signs and I&O's Vital Signs: Temperature 99.6 F Pulse Rate 84 Respiratory Rate 26 Blood Pressure 117/57 O2 Sat by Pulse Oximetry 94 Intake and Output: Intake & Output 08/30/21 08/31/21 09/01/21 09/02/21 11:59 11:59 11:59 11:59 Intake Total 2880 / 2880 2340 / 2340 2966 / 2966 2764 / 2764 Output Total 800 / 800 650 / 650 Balance 2880 / 2880 2340 / 2340 2166 / 2166 2114 / 2114 Physical Exam Oriented: Normal Eyes: Normal Ear: Normal Nose: Normal Throat: Normal Respiratory: Right, Left, Diminished and Rhonchi Cardiovascular: Normal : Normal Auscultation: Bowel Sounds: Normal Tenderness: Normal Skin: Normal Musculoskeletal: Normal Psychiatric: Normal Mood Description: Calm Affect: Normal Speech Pattern: Clear and Delayed Laboratory and Diagnostics Result Diagrams: 09/02/21 04:41 09/02/21 04:41 Labs: 08/25/21 22:39 Blood Blood Culture - Final 08/25/21 22:32 Blood Blood Culture - Final 08/26/21 04:25 Urine,Clean Catch Urine Culture - Preliminary Streptococcus Pneumoniae Laboratory WBC 3.4 X10^3/uL (3.6-10.0) L 09/02/21 04:41 RBC 3.81 X10^6/uL (3.5-5.4) 09/02/21 04:41 Hgb 9.0 g/dL (12.0-16.0) L 09/02/21 04:41 Hct 26.6 % (36.0-47.0) L 09/02/21 04:41 MCV 69.8 fL (80.0-100.0) L 09/02/21 04:41 MCH 23.7 pg (27.0-34.0) L 09/02/21 04:41 MCHC 33.9 g/dL (33.0-35.0) 09/02/21 04:41 RDW 19.4 % (11.6-16.5) H 09/02/21 04:41 Plt Count 313 X10^3/uL (150.0-450.0) 09/02/21 04:41 Plt Count Comment Adequate (ADEQUATE) 09/02/21 04:41 MPV 8.0 fL (7.4-11.0) 09/02/21 04:41 Neut % (Auto) 87.7 % (42.0-75.0) H 09/02/21 04:41 Lymph % (Auto) 6.7 % (21.0-51.0) L 09/02/21 04:41 [place] % (Auto) 3.7 % (0.0-13.0) 09/02/21 04:41 Eos % (Auto) 1.4 % (0.9-2.9) 09/02/21 04:41 Baso % (Auto) 0.5 % (0.2-1.0) 09/02/21 04:41 Neut # (Auto) 3.0 x10^3/uL (2.2-4.8) 09/02/21 04:41 Lymph # (Auto) 0.2 X10^3/uL (1.3-2.9) L 09/02/21 04:41 [place] # (Auto) 0.1 x10^3/uL (0.3-0.8) L 09/02/21 04:41 Eos # (Auto) 0.0 x10^3/uL (0.0-0.2) 09/02/21 04:41 Baso # (Auto) 0.0 X10^3/uL (0.0-0.1) 09/02/21 04:41 Absolute Nucleated RBC 0.0 /100WBC 09/02/21 04:41 Total Counted 100 08/31/21 04:27 Neutrophils % (Manual) 88 % (39-76) H 08/31/21 04:27 Band Neutrophils % 1 % (0-10) 08/31/21 04:27 Lymphocytes % (Manual) 10 % (13-43) L 08/31/21 04:27 Monocytes % (Manual) 1 % (4-9) L 08/31/21 04:27 Plt Morphology Comment Normal (NORMAL) 09/02/21 04:41 RBC Morphology Abnormal (NORMAL) A 09/02/21 04:41 Hypochromasia 1+ A 09/01/21 05:07 Anisocytosis 1+ A 09/01/21 05:07 Microcytosis 1+ A 09/02/21 04:41 Ovalocytes Present 09/01/21 05:07 [place] Cells Present 08/31/21 04:27 D-Dimer 0.61 ug/ml (0.0-0.57) H* 08/25/21 13:19 Sample Site Lr 09/02/21 05:00 ABG pH 7.520 (7.35-7.45) H 09/02/21 05:00 ABG pCO2 34.0 mmHg (35.0-45.0) L 09/02/21 05:00 ABG pO2 68.0 mmHg (80.0-100.0) L 09/02/21 05:00 ABG HCO3 27.8 mmol/L (22-26) H 09/02/21 05:00 ABG O2 Saturation 95.0 % (90-100) 09/02/21 05:00 ABG Base Excess 5.0 mmol/L (-2.0-2.0) H 09/02/21 05:00 Arjun Test Pos 09/02/21 05:00 A-a Gradient 203.0 mmHg 09/02/21 05:00 FiO2 44.0 09/02/21 05:00 Blood Gas Comments Dolores well sw 09/02/21 05:00 Sodium 137 mmol/L (136-145) 09/02/21 04:41 Corrected Sodium 138 mmol/L (136-145) 09/02/21 04:41 Potassium 2.4 mmol/L (3.5-5.1) L* 09/02/21 04:41 Chloride 98 mmol/L (98-107) 09/02/21 04:41 Carbon Dioxide 25.3 mmol/L (21-32) 09/02/21 04:41 BUN 26 mg/dL (7-18) H 09/02/21 04:41 Creatinine 1.73 mg/dL (0.55-1.02) H 09/02/21 04:41 Est GFR (MDRD) Af Amer 37 (>60) L 09/02/21 04:41 Est GFR (MDRD) Non-Af 31 (>60) L 09/02/21 04:41 Glucose 151 mg/dL (65-99) H 09/02/21 04:41 POC Glucose (mg/dL) 161 mg/dL (65-99) H 09/02/21 05:20 Calcium 9.2 mg/dL (8.5-10.1) 09/02/21 04:41 Corrected Calcium 11.0 mg/dL (8.5-10.1) H 09/02/21 04:41 Magnesium 1.8 mg/dL (1.7-2.9) 09/02/21 04:41 Total Bilirubin 0.40 mg/dL (0.2-1.0) 09/02/21 04:41 AST 137 Units/L (15-37) H 09/02/21 04:41 ALT 67 Units/L (12-78) 09/02/21 04:41 Alkaline Phosphatase 66 Units/L (46-116) 09/02/21 04:41 C-Reactive Protein 218.80 mg/L (0-3.0) H 09/01/21 05:07 B-Natriuretic Peptide 141 pg/mL (0-79) H 09/01/21 05:07 Total Protein 7.8 g/dL (6.4-8.2) 09/02/21 04:41 Albumin 1.8 g/dL (3.4-5.0) L 09/02/21 04:41 Globulin 6.0 g/dL (2.5-4.5) H 09/02/21 04:41 Albumin/Globulin Ratio 0.3 Ratio (1.1-2.1) L 09/02/21 04:41 Specimen Type Clean catch urine 08/26/21 04:25 Urine Color Yellow (YELLOW) 08/26/21 04:25 Urine Appearance Slightly hazy (CLEAR) 08/26/21 04:25 Urine pH 5.0 (5.0 - 8.0) 08/26/21 04:25 Ur Specific [place] 1.020 (1.000-1.030) 08/26/21 04:25 Urine Protein 3+ (NEGATIVE) 08/26/21 04:25 Urine Glucose (UA) Negative (NEGATIVE) 08/26/21 04:25 Urine Ketones Negative (NEGATIVE) 08/26/21 04:25 Urine Occult Blood Negative (NEGATIVE) 08/26/21 04:25 Urine Nitrite Negative (NEGATIVE) 08/26/21 04:25 Urine Bilirubin Negative (NEGATIVE) 08/26/21 04:25 Urine Urobilinogen Normal (NORMAL) 08/26/21 04:25 Ur Leukocyte Esterase Negative (NEGATIVE) 08/26/21 04:25 Urine RBC 0-2 /HPF (0-3) 08/26/21 04:25 Urine WBC 3-5 /HPF (0-5) 08/26/21 04:25 Ur Squamous Epith Cells Rare /HPF (NEGATIVE) 08/26/21 04:25 Amorphous Sediment 1+ /HPF (NEGATIVE) 08/26/21 04:25 Urine Bacteria 3+ /HPF (NEGATIVE) 08/26/21 04:25 Granular Casts Few /LPF (NEGATIVE) 08/26/21 04:25 Coarse Granular Casts Few /HPF (NEGATIVE) 08/25/21 20:00 Urine Mucus Few /HPF (NEGATIVE) 08/25/21 20:00 Ur Culture Indicated? Yes/culture set up 08/26/21 04:25 Radiology Reviewed: Yes Plan (1) Elevated brain natriuretic peptide (BNP) level: Status: Acute (2) Hypokalemia: Status: Acute Plan: Potassium replacement protocol today. (3) COVID-19: Status: Acute Narrative Support Text: Improved overall. Plan: Covid Protocol (4) Anemia of chronic renal failure: Status: Acute Plan: Daily CBC's (5) DM2 (diabetes mellitus, type 2): Status: Acute Plan: Reg insulin sliding scale (6) HTN (hypertension): Status: Acute (7) Dyslipidemia: Status: Acute (8) UTI (urinary tract infection): Status: Acute (9) Anemia: Status: Acute (10) Thrombocytopenia: Status: Acute (11) Tachypnea: Status: Acute (12) Respiratory alkalosis: Status: Acute (13) Fever: Status: Acute (14) Hypoalbuminemia: Status: Acute (15) Hypernatremia: Status: Acute (16) Acute respiratory failure with hypoxia: Status: Acute (17) CKD (chronic kidney disease) stage 4, GFR 15-29 ml/min: Status: Acute Plan: IV hydration D/C Metformin (18) Hypothyroidism: Status: Acute Plan: resume levothyroxine
--- NOTE | 2021-09-02 08:51 | PCM.PROG ---
Progress Note Progress Note for Day of Date of Exam: 09/02/21 Subjective Subjective: Breathing much improved this am. Patient is feeling much better overall. No acute problems overnight. No new problems reported today. Decreased K today and no change with CXR. Pt is on O2 NC 6L. Continue to ween down as tolerated. Meropenem started yesterday given her climbing CRP. F/U with 'CRP level when available. Past Medical Family Social History Past Med/Fam/Surg Hx: No changes since H&P Allergies: Allergies No Known Drug Allergies Allergy (Verified 08/25/21 14:20) Review of Systems ROS: No change since H&P Vital Signs and I&O's Vital Signs: Temperature 99.6 F Pulse Rate 84 Respiratory Rate 26 Blood Pressure 117/57 O2 Sat by Pulse Oximetry 94 Intake and Output: Intake & Output 08/30/21 08/31/21 09/01/21 09/02/21 11:59 11:59 11:59 11:59 Intake Total 2880 / 2880 2340 / 2340 2966 / 2966 2764 / 2764 Output Total 800 / 800 650 / 650 Balance 2880 / 2880 2340 / 2340 2166 / 2166 2114 / 2114 Physical Exam Oriented: Normal Eyes: Normal Ear: Normal Nose: Normal Throat: Normal Respiratory: Right, Left and Rhonchi Cardiovascular: Normal : Normal Auscultation: Bowel Sounds: Normal Palpation: Normal Tenderness: Normal Skin: Normal Musculoskeletal: Normal Psychiatric: Normal Mood Description: Calm Affect: Normal Speech Pattern: Clear and Delayed Laboratory and Diagnostics Result Diagrams: 09/02/21 04:41 09/02/21 04:41 Labs: 08/25/21 22:39 Blood Blood Culture - Final 08/25/21 22:32 Blood Blood Culture - Final 08/26/21 04:25 Urine,Clean Catch Urine Culture - Preliminary Streptococcus Pneumoniae Laboratory WBC 3.4 X10^3/uL (3.6-10.0) L 09/02/21 04:41 RBC 3.81 X10^6/uL (3.5-5.4) 09/02/21 04:41 Hgb 9.0 g/dL (12.0-16.0) L 09/02/21 04:41 Hct 26.6 % (36.0-47.0) L 09/02/21 04:41 MCV 69.8 fL (80.0-100.0) L 09/02/21 04:41 MCH 23.7 pg (27.0-34.0) L 09/02/21 04:41 MCHC 33.9 g/dL (33.0-35.0) 09/02/21 04:41 RDW 19.4 % (11.6-16.5) H 09/02/21 04:41 Plt Count 313 X10^3/uL (150.0-450.0) 09/02/21 04:41 Plt Count Comment Adequate (ADEQUATE) 09/02/21 04:41 MPV 8.0 fL (7.4-11.0) 09/02/21 04:41 Neut % (Auto) 87.7 % (42.0-75.0) H 09/02/21 04:41 Lymph % (Auto) 6.7 % (21.0-51.0) L 09/02/21 04:41 [place] % (Auto) 3.7 % (0.0-13.0) 09/02/21 04:41 Eos % (Auto) 1.4 % (0.9-2.9) 09/02/21 04:41 Baso % (Auto) 0.5 % (0.2-1.0) 09/02/21 04:41 Neut # (Auto) 3.0 x10^3/uL (2.2-4.8) 09/02/21 04:41 Lymph # (Auto) 0.2 X10^3/uL (1.3-2.9) L 09/02/21 04:41 [place] # (Auto) 0.1 x10^3/uL (0.3-0.8) L 09/02/21 04:41 Eos # (Auto) 0.0 x10^3/uL (0.0-0.2) 09/02/21 04:41 Baso # (Auto) 0.0 X10^3/uL (0.0-0.1) 09/02/21 04:41 Absolute Nucleated RBC 0.0 /100WBC 09/02/21 04:41 Total Counted 100 08/31/21 04:27 Neutrophils % (Manual) 88 % (39-76) H 08/31/21 04:27 Band Neutrophils % 1 % (0-10) 08/31/21 04:27 Lymphocytes % (Manual) 10 % (13-43) L 08/31/21 04:27 Monocytes % (Manual) 1 % (4-9) L 08/31/21 04:27 Plt Morphology Comment Normal (NORMAL) 09/02/21 04:41 RBC Morphology Abnormal (NORMAL) A 09/02/21 04:41 Hypochromasia 1+ A 09/01/21 05:07 Anisocytosis 1+ A 09/01/21 05:07 Microcytosis 1+ A 09/02/21 04:41 Ovalocytes Present 09/01/21 05:07 [place] Cells Present 08/31/21 04:27 D-Dimer 0.61 ug/ml (0.0-0.57) H* 08/25/21 13:19 Sample Site Lr 09/02/21 05:00 ABG pH 7.520 (7.35-7.45) H 09/02/21 05:00 ABG pCO2 34.0 mmHg (35.0-45.0) L 09/02/21 05:00 ABG pO2 68.0 mmHg (80.0-100.0) L 09/02/21 05:00 ABG HCO3 27.8 mmol/L (22-26) H 09/02/21 05:00 ABG O2 Saturation 95.0 % (90-100) 09/02/21 05:00 ABG Base Excess 5.0 mmol/L (-2.0-2.0) H 09/02/21 05:00 Arjun Test Pos 09/02/21 05:00 A-a Gradient 203.0 mmHg 09/02/21 05:00 FiO2 44.0 09/02/21 05:00 Blood Gas Comments [place]ores well sw 09/02/21 05:00 Sodium 137 mmol/L (136-145) 09/02/21 04:41 Corrected Sodium 138 mmol/L (136-145) 09/02/21 04:41 Potassium 2.4 mmol/L (3.5-5.1) L* 09/02/21 04:41 Chloride 98 mmol/L (98-107) 09/02/21 04:41 Carbon Dioxide 25.3 mmol/L (21-32) 09/02/21 04:41 BUN 26 mg/dL (7-18) H 09/02/21 04:41 Creatinine 1.73 mg/dL (0.55-1.02) H 09/02/21 04:41 Est GFR (MDRD) Af Amer 37 (>60) L 09/02/21 04:41 Est GFR (MDRD) Non-Af 31 (>60) L 09/02/21 04:41 Glucose 151 mg/dL (65-99) H 09/02/21 04:41 POC Glucose (mg/dL) 161 mg/dL (65-99) H 09/02/21 05:20 Calcium 9.2 mg/dL (8.5-10.1) 09/02/21 04:41 Corrected Calcium 11.0 mg/dL (8.5-10.1) H 09/02/21 04:41 Magnesium 1.8 mg/dL (1.7-2.9) 09/02/21 04:41 Total Bilirubin 0.40 mg/dL (0.2-1.0) 09/02/21 04:41 AST 137 Units/L (15-37) H 09/02/21 04:41 ALT 67 Units/L (12-78) 09/02/21 04:41 Alkaline Phosphatase 66 Units/L (46-116) 09/02/21 04:41 C-Reactive Protein 218.80 mg/L (0-3.0) H 09/01/21 05:07 B-Natriuretic Peptide 141 pg/mL (0-79) H 09/01/21 05:07 Total Protein 7.8 g/dL (6.4-8.2) 09/02/21 04:41 Albumin 1.8 g/dL (3.4-5.0) L 09/02/21 04:41 Globulin 6.0 g/dL (2.5-4.5) H 09/02/21 04:41 Albumin/Globulin Ratio 0.3 Ratio (1.1-2.1) L 09/02/21 04:41 Specimen Type Clean catch urine 08/26/21 04:25 Urine Color Yellow (YELLOW) 08/26/21 04:25 Urine Appearance Slightly hazy (CLEAR) 08/26/21 04:25 Urine pH 5.0 (5.0 - 8.0) 08/26/21 04:25 Ur Specific [place] 1.020 (1.000-1.030) 08/26/21 04:25 Urine Protein 3+ (NEGATIVE) 08/26/21 04:25 Urine Glucose (UA) Negative (NEGATIVE) 08/26/21 04:25 Urine Ketones Negative (NEGATIVE) 08/26/21 04:25 Urine Occult Blood Negative (NEGATIVE) 08/26/21 04:25 Urine Nitrite Negative (NEGATIVE) 08/26/21 04:25 Urine Bilirubin Negative (NEGATIVE) 08/26/21 04:25 Urine Urobilinogen Normal (NORMAL) 08/26/21 04:25 Ur Leukocyte Esterase Negative (NEGATIVE) 08/26/21 04:25 Urine RBC 0-2 /HPF (0-3) 08/26/21 04:25 Urine WBC 3-5 /HPF (0-5) 08/26/21 04:25 Ur Squamous Epith Cells Rare /HPF (NEGATIVE) 08/26/21 04:25 Amorphous Sediment 1+ /HPF (NEGATIVE) 08/26/21 04:25 Urine Bacteria 3+ /HPF (NEGATIVE) 08/26/21 04:25 Granular Casts Few /LPF (NEGATIVE) 08/26/21 04:25 Coarse Granular Casts Few /HPF (NEGATIVE) 08/25/21 20:00 Urine Mucus Few /HPF (NEGATIVE) 08/25/21 20:00 Ur Culture Indicated? Yes/culture set up 08/26/21 04:25 Radiology Reviewed: Yes Plan (1) Elevated brain natriuretic peptide (BNP) level: Status: Acute Plan: Lasix 40 mg IV bid x 24 hrs (2) Hypokalemia: Status: Acute Plan: Potassium replacement protocol today. (3) COVID-19: Status: Acute Plan: Covid Protocol (4) Anemia of chronic renal failure: Status: Acute Plan: Daily CBC's (5) DM2 (diabetes mellitus, type 2): Status: Acute Plan: Reg insulin sliding scale (6) HTN (hypertension): Status: Acute (7) Dyslipidemia: Status: Acute (8) UTI (urinary tract infection): Status: Acute (9) Anemia: Status: Acute (10) Thrombocytopenia: Status: Acute (11) Tachypnea: Status: Acute (12) Respiratory alkalosis: Status: Acute (13) Fever: Status: Acute (14) Hypoalbuminemia: Status: Acute (15) Hypernatremia: Status: Acute (16) Acute respiratory failure with hypoxia: Status: Acute (17) CKD (chronic kidney disease) stage 4, GFR 15-29 ml/min: Status: Acute Plan: IV hydration D/C Metformin (18) Hypothyroidism: Status: Acute Plan: resume levothyroxine
[2021-09-02] MEDS: BROVANA IN SCH ×2 (09:49→21:29)
[2021-09-02] MEDS: PULMICORT NEB TX 0.5 MG NEB SCH ×2 (09:49→21:29)
[2021-09-02] MEDS: MERREM VIAL 1 G in NS 100 ML IV + SPIKE MINIBAG* 100 ML IV SCH ×2 (09:56→20:52)
[2021-09-02] MEDS: DIFLUCAN 100 MG IV (MIX by PHARMACY)* 100 MG/50 ML BAG IV SCH (11:08)
[2021-09-02] MEDS: MAGNESIUM SULFATE 1 GRAM/100 mL PREMIX 1 G/100 ML BAG IV PRN ×2 (11:08→13:01)
[2021-09-02 11:36] VITALS: BMI 28.3
[2021-09-02] MEDS: NovoLIN R (or HumuLIN R) SUBCUT PRN (13:00)
[2021-09-02] MEDS: XOPENEX 1.25 MG/3 ML NEBULE NEB PRN ×2 (14:15→21:29)
[2021-09-02] MEDS: K-DUR TAB 20 MEQ PO PRN (15:14)
--- NOTE | 2021-09-02 15:56 | PCM.PROG ---
Progress Note Progress Note for Day of Date of Exam: 09/02/21 Past Medical Family Social History Past Med/Fam/Surg Hx: No changes since H&P Allergies: SUBJECTIVE : Follow-up requested by providers Case discussed with bedside nurse Lupe preciado, patient's condition has improved. She is using incentive spirometer diligently. She is saturating 93 to 95% on oxygen mask at 6 L/min. She is very weak and not able to get out of bed to chair or walk in the room. The nurse tried to take her to the bathroom and she almost could not collect herself and had to be picked up to be put back into bed. Labs showed hypokalemia for which replacement is being done. Creatinine is elevated but stable at 1.73. Afebrile. Vital signs stable except for some tachycardia. She does not have signs of secondary bacterial infection. She is being diuresed for elevated BN peptide. No acute pulmonary recommendations at this time. Please feel free to call if there is a clinical decline of if you have any questions Thank you for the consultation! Review of Systems ROS: No change since H&P Vital Signs and I&O's Vital Signs: Temperature 98.1 F Pulse Rate 98 Respiratory Rate 24 Blood Pressure 110/53 O2 Sat by Pulse Oximetry 95 Intake and Output: Intake & Output 08/30/21 08/31/21 09/01/21 09/02/21 23:59 23:59 23:59 23:59 Intake Total 3246 / 3246 3023 / 3023 2742 / 2742 444 / 444 Output Total 500 / 500 950 / 950 Balance 3246 / 3246 2523 / 2523 1792 / 1792 444 / 444 Physical Exam Oriented: Other Laboratory and Diagnostics Result Diagrams: 09/02/21 04:41 09/02/21 04:41 Labs: 08/25/21 22:39 Blood Blood Culture - Final 08/25/21 22:32 Blood Blood Culture - Final 08/26/21 04:25 Urine,Clean Catch Urine Culture - Preliminary Streptococcus Pneumoniae Laboratory WBC 3.4 X10^3/uL (3.6-10.0) L 09/02/21 04:41 RBC 3.81 X10^6/uL (3.5-5.4) 09/02/21 04:41 Hgb 9.0 g/dL (12.0-16.0) L 09/02/21 04:41 Hct 26.6 % (36.0-47.0) L 09/02/21 04:41 MCV 69.8 fL (80.0-100.0) L 09/02/21 04:41 MCH 23.7 pg (27.0-34.0) L 09/02/21 04:41 MCHC 33.9 g/dL (33.0-35.0) 09/02/21 04:41 RDW 19.4 % (11.6-16.5) H 09/02/21 04:41 Plt Count 313 X10^3/uL (150.0-450.0) 09/02/21 04:41 Plt Count Comment Adequate (ADEQUATE) 09/02/21 04:41 MPV 8.0 fL (7.4-11.0) 09/02/21 04:41 Neut % (Auto) 87.7 % (42.0-75.0) H 09/02/21 04:41 Lymph % (Auto) 6.7 % (21.0-51.0) L 09/02/21 04:41 [place] % (Auto) 3.7 % (0.0-13.0) 09/02/21 04:41 Eos % (Auto) 1.4 % (0.9-2.9) 09/02/21 04:41 Baso % (Auto) 0.5 % (0.2-1.0) 09/02/21 04:41 Neut # (Auto) 3.0 x10^3/uL (2.2-4.8) 09/02/21 04:41 Lymph # (Auto) 0.2 X10^3/uL (1.3-2.9) L 09/02/21 04:41 [place] # (Auto) 0.1 x10^3/uL (0.3-0.8) L 09/02/21 04:41 Eos # (Auto) 0.0 x10^3/uL (0.0-0.2) 09/02/21 04:41 Baso # (Auto) 0.0 X10^3/uL (0.0-0.1) 09/02/21 04:41 Absolute Nucleated RBC 0.0 /100WBC 09/02/21 04:41 Total Counted 100 08/31/21 04:27 Neutrophils % (Manual) 88 % (39-76) H 08/31/21 04:27 Band Neutrophils % 1 % (0-10) 08/31/21 04:27 Lymphocytes % (Manual) 10 % (13-43) L 08/31/21 04:27 Monocytes % (Manual) 1 % (4-9) L 08/31/21 04:27 Plt Morphology Comment Normal (NORMAL) 09/02/21 04:41 RBC Morphology Abnormal (NORMAL) A 09/02/21 04:41 Hypochromasia 1+ A 09/01/21 05:07 Anisocytosis 1+ A 09/01/21 05:07 Microcytosis 1+ A 09/02/21 04:41 Ovalocytes Present 09/01/21 05:07 [place] Cells Present 08/31/21 04:27 D-Dimer 0.61 ug/ml (0.0-0.57) H* 08/25/21 13:19 Sample Site Lr 09/02/21 05:00 ABG pH 7.520 (7.35-7.45) H 09/02/21 05:00 ABG pCO2 34.0 mmHg (35.0-45.0) L 09/02/21 05:00 ABG pO2 68.0 mmHg (80.0-100.0) L 09/02/21 05:00 ABG HCO3 27.8 mmol/L (22-26) H 09/02/21 05:00 ABG O2 Saturation 95.0 % (90-100) 09/02/21 05:00 ABG Base Excess 5.0 mmol/L (-2.0-2.0) H 09/02/21 05:00 Arjun Test Pos 09/02/21 05:00 A-a Gradient 203.0 mmHg 09/02/21 05:00 FiO2 44.0 09/02/21 05:00 Blood Gas Comments [facility] well 09/02/21 05:00 Sodium 137 mmol/L (136-145) 09/02/21 04:41 Corrected Sodium 138 mmol/L (136-145) 09/02/21 04:41 Potassium 2.4 mmol/L (3.5-5.1) L* 09/02/21 04:41 Chloride 98 mmol/L (98-107) 09/02/21 04:41 Carbon Dioxide 25.3 mmol/L (21-32) 09/02/21 04:41 BUN 26 mg/dL (7-18) H 09/02/21 04:41 Creatinine 1.73 mg/dL (0.55-1.02) H 09/02/21 04:41 Est GFR (MDRD) Af Amer 37 (>60) L 09/02/21 04:41 Est GFR (MDRD) Non-Af 31 (>60) L 09/02/21 04:41 Glucose 151 mg/dL (65-99) H 09/02/21 04:41 POC Glucose (mg/dL) 267 mg/dL (65-99) H 09/02/21 15:25 Calcium 9.2 mg/dL (8.5-10.1) 09/02/21 04:41 Corrected Calcium 11.0 mg/dL (8.5-10.1) H 09/02/21 04:41 Magnesium 1.8 mg/dL (1.7-2.9) 09/02/21 04:41 Total Bilirubin 0.40 mg/dL (0.2-1.0) 09/02/21 04:41 AST 137 Units/L (15-37) H 09/02/21 04:41 ALT 67 Units/L (12-78) 09/02/21 04:41 Alkaline Phosphatase 66 Units/L (46-116) 09/02/21 04:41 C-Reactive Protein 173.60 mg/L (0-3.0) H 09/02/21 04:41 B-Natriuretic Peptide 141 pg/mL (0-79) H 09/01/21 05:07 Total Protein 7.8 g/dL (6.4-8.2) 09/02/21 04:41 Albumin 1.8 g/dL (3.4-5.0) L 09/02/21 04:41 Globulin 6.0 g/dL (2.5-4.5) H 09/02/21 04:41 Albumin/Globulin Ratio 0.3 Ratio (1.1-2.1) L 09/02/21 04:41 Specimen Type Clean catch urine 08/26/21 04:25 Urine Color Yellow (YELLOW) 08/26/21 04:25 Urine Appearance Slightly hazy (CLEAR) 08/26/21 04:25 Urine pH 5.0 (5.0 - 8.0) 08/26/21 04:25 Ur Specific [place] 1.020 (1.000-1.030) 08/26/21 04:25 Urine Protein 3+ (NEGATIVE) 08/26/21 04:25 Urine Glucose (UA) Negative (NEGATIVE) 08/26/21 04:25 Urine Ketones Negative (NEGATIVE) 08/26/21 04:25 Urine Occult Blood Negative (NEGATIVE) 08/26/21 04:25 Urine Nitrite Negative (NEGATIVE) 08/26/21 04:25 Urine Bilirubin Negative (NEGATIVE) 08/26/21 04:25 Urine Urobilinogen Normal (NORMAL) 08/26/21 04:25 Ur Leukocyte Esterase Negative (NEGATIVE) 08/26/21 04:25 Urine RBC 0-2 /HPF (0-3) 08/26/21 04:25 Urine WBC 3-5 /HPF (0-5) 08/26/21 04:25 Ur Squamous Epith Cells Rare /HPF (NEGATIVE) 08/26/21 04:25 Amorphous Sediment 1+ /HPF (NEGATIVE) 08/26/21 04:25 Urine Bacteria 3+ /HPF (NEGATIVE) 08/26/21 04:25 Granular Casts Few /LPF (NEGATIVE) 08/26/21 04:25 Coarse Granular Casts Few /HPF (NEGATIVE) 08/25/21 20:00 Urine Mucus Few /HPF (NEGATIVE) 08/25/21 20:00 Ur Culture Indicated? Yes/culture set up 08/26/21 04:25 Plan (1) Elevated brain natriuretic peptide (BNP) level: Status: Acute Plan: Lasix 40 mg IV bid x 24 hrs (2) Hypokalemia: Status: Acute Plan: Potassium replacement protocol today. (3) COVID-19: Status: Acute Plan: Covid Protocol (4) Anemia of chronic renal failure: Status: Acute Plan: Daily CBC's (5) DM2 (diabetes mellitus, type 2): Status: Acute Plan: Reg insulin sliding scale (6) HTN (hypertension): Status: Acute (7) Dyslipidemia: Status: Acute (8) UTI (urinary tract infection): Status: Acute (9) Anemia: Status: Acute (10) Thrombocytopenia: Status: Acute (11) Tachypnea: Status: Acute (12) Respiratory alkalosis: Status: Acute (13) Fever: Status: Acute (14) Hypoalbuminemia: Status: Acute (15) Hypernatremia: Status: Acute (16) Acute respiratory failure with hypoxia: Status: Acute (17) CKD (chronic kidney disease) stage 4, GFR 15-29 ml/min: Status: Acute Plan: IV hydration D/C Metformin (18) Hypothyroidism: Status: Acute Plan: resume levothyroxine
[2021-09-02] MEDS: NEURONTIN CAP 100 MG PO SCH (20:52)
[2021-09-02] MEDS: SNACK - Diabetic Appropriate PO SCH (20:53)
[2021-09-02] MEDS: PEPCID TAB 20 MG PO SCH (20:53)
[2021-09-03] MEDS: ASCORBIC ACID INJ MULTI-DOSE VIAL 1,500 MG in NS 50 ML IV 50 ML IV SCH ×4 (03:37→21:19)
[2021-09-03 06:02] LABS: ABG ALLEN TEST POS; ABG BASE EXCESS 1.9 mmol/L (-2.0-2.0); ABG HCO3 25.6 mmol/L (22-26)
[2021-09-03] MEDS: XOPENEX 1.25 MG/3 ML NEBULE NEB PRN ×3 (06:10→20:10)
[2021-09-03 06:15] LABS: BASOPHILS % (AUTO) 0.6 % (0.2-1.0); EOSINOPHILS % (AUTO) 1.4 % (0.9-2.9); HEMATOCRIT 24.5 % (36.0-47.0); HEMOGLOBIN 8.4 g/dL (12.0-16.0); LYMPHOCYTES # (AUTO) 0.3 X10^3/uL (1.3-2.9); LYMPHOCYTES % (AUTO) 11.6 % (21.0-51.0); MEAN CORPUSCULAR HEMOGLOBIN 24.9 pg (27.0-34.0); MEAN CORPUSCULAR HGB CONC 34.3 g/dL (33.0-35.0); MEAN CORPUSCULAR VOLUME 72.7 fL (80.0-100.0); MEAN PLATELET VOLUME 7.7 fL (7.4-11.0); MONOCYTES # (AUTO) 0.1 x10^3/uL (0.3-0.8); NEUTROPHILS # (AUTO) 2.4 x10^3/uL (2.2-4.8); NEUTROPHILS % (AUTO) 82.4 % (42.0-75.0); RED BLOOD COUNT 3.38 X10^6/uL (3.5-5.4); RED CELL DISTRIBUTION WIDTH 19.6 % (11.6-16.5); WHITE BLOOD COUNT 2.9 X10^3/uL (3.6-10.0)
[2021-09-03 06:45] LABS: ALBUMIN 1.7 g/dL (3.4-5.0); CALCIUM 8.9 mg/dL (8.5-10.1); COR CA(FOR HYPOALB) 10.7 mg/dL (8.5-10.1); CREATININE 1.43 mg/dL (0.55-1.02); TOTAL PROTEIN 7.3 g/dL (6.4-8.2)
--- NOTE | 2021-09-03 07:01 | RAD ---
HISTORYCOVID-19 pneumoniaSTUDYPortable AP chestCOMPARISONFebruary 2021FINDINGSContinued normal heart size and contour. There is no change in extent or distribution of bilateral pulmonary infiltrates/airspace consolidation. No additional abnormality is seen. Pleural spaces remain well defined. There is no evidence for pneumothorax.IMPRESSIONStable appearance of bilateral pneumonia.Electronically signed by: ANGEL GONZALEZ (Sep 03, 2021 07:00:53)
[2021-09-03 07:42] LABS: HYPOCHROMASIA SLIGHT; PLATELET MORPHOLOGY COMMENT NORMAL (NORMAL)
[2021-09-03 07:43] LABS: ANISOCYTOSIS SLIGHT; MICROCYTOSIS SLIGHT; OVALOCYTES PRESENT
[2021-09-03] MEDS: BROVANA IN SCH ×2 (08:47→20:10)
[2021-09-03] MEDS: PULMICORT NEB TX 0.5 MG NEB SCH ×2 (08:47→20:10)
[2021-09-03] MEDS: MERREM VIAL 1 G in NS 100 ML IV + SPIKE MINIBAG* 100 ML IV SCH ×2 (09:25→21:20)
[2021-09-03] MEDS: K-DUR TAB 20 MEQ PO SCH ×2 (09:32→21:19)
[2021-09-03] MEDS: FERROUS GLUCONATE PO SCH ×2 (09:32→21:19)
[2021-09-03] MEDS: CRESTOR TAB 10 MG PO SCH (09:32)
[2021-09-03] MEDS: LOPRESSOR TAB 25 MG PO SCH ×2 (09:33→21:20)
[2021-09-03] MEDS: VITAMIN D3 125 mcg (5,000 UNITS) PO SCH (09:33)
[2021-09-03] MEDS: VITAMIN A PO SCH (09:33)
[2021-09-03] MEDS: LOVENOX INJ 30 MG SYR SC SCH (09:33)
[2021-09-03] MEDS: SYNTHROID 88 mcg TAB PO SCH (09:34)
[2021-09-03] MEDS: DIFLUCAN 100 MG IV (MIX by PHARMACY)* 100 MG/50 ML BAG IV SCH (10:51)
[2021-09-03] MEDS: NS + KCL 20 MEQ/L 1,000 ML IV SCH (10:55)
[2021-09-03] MEDS: SOLU-Medrol 40 MG VIAL IVP SCH ×3 (11:07→21:33)
[2021-09-03] MEDS: NovoLIN R (or HumuLIN R) SUBCUT PRN ×3 (11:17→21:34)
[2021-09-03] MEDS: LEVAQUIN PREMIX IV 250 MG 250 MG/50 ML BAG IV SCH (14:21)
--- NOTE | 2021-09-03 15:33 | PCM.PROG ---
Progress Note - Progress Note for Day of Date of Exam: 09/03/21 - Subjective Subjective: IS A 76 YEAR OLD PATIENT OF [facility]/. PMH OF ANEMIA, DM II, DYSLIPIDEMIA, HTN, HYPOTHYROIDISM, RENAL DISEASE. SHE IS BEING TREATED FOR PNEUMONIA DUE TO COVID-19, HYPOXIA, UTI, CKD, ANEMIA. SHE RECEIVED A SOTROVOMAB INFUSION ON ADMISSION. TODAY, SHE IS ALERT AND ORIENTED, LYING IN BED ON MORNING ROUNDS. SHE CONTINUES WITH SHORTNESS OF BREATH AT TIMES AND WEAKNESS, BUT DENIES OTHER COMPLAINTS. SHE IS CURRENTLY UTILIZING OXYGEN VIA NASAL CANNULA AT 6 LPM. SATURATIONS HAVE REMAINED ABOVE 90% THIS MORNING. ON EXAMINATION, HEART IS REGULAR IN RATE AND RHYTHM. BILATERAL LUNGS NOTED WITH RHONCHI THROUGOUT. ABDOMEN IS ROUND, SOFT, AND NON-TENDER WITH NORMAL BOWEL SOUNDS NOTED IN ALL QUADRANTS. HER VITALS THIS MORNING ARE: 99.1-91-20-92%-115/56. LABS WERE OBTAINED. ABNORMAL LAB VALUES INCLUDE THE FOLLOWING: WBC 2.9, RBC 3.38, HGB 8.4, HCT 24.5, POTASSIUM 2.8, BUN 27, CREATININE 1.43, GLUCOSE 154, AST 145, ALT 102, CRP 127.50, ALBUMIN 1.7. CHEST XRAY REVEALED: Stable appearance of bilateral pneumonia. SHE IS RECEIVING NS WITH 20MEQ KCL AT KVO, POTASSIUM AND MAGNESIUM PROTOCOLS, MEROPENEM 1G IV Q12H, LEVAQUIN 250MG IV DAILY, ASCORBIC ACID 1500MG IV Q6H, DIFLUCAN 100MG IV DAILY, HUMULIN R SLIDING SCALE, NEBULIZER TREAMENTS, LOVENOX 30MG SC DAILY, AND HOME MEDICATIONS WERE RESUMED. WE WILL CONTINUE WITH CURRENT PLAN OF CARE TODAY. OTHERWISE, WE PLAN TO FOLLOW UP WITH AM LABS AND CHEST XRAY AND CONTINUE TO MONITOR. TIME SPENT ON CLINICAL ASSESSMENT, REVIEWING LABS AND IMAGING, DECISION MAKING, AND DOCUMENTATION WAS GREATER THAN 45 MINUTES. - Past Medical Family Social History Past Med/Fam/Surg Hx: No changes since H&P Allergies: Allergies No Known Drug Allergies Allergy (Verified 08/25/21 14:20) - Review of Systems ROS: No change since H&P - Vital Signs and I&O's Vital Signs: Temperature 98.6 F Pulse Rate 78 Respiratory Rate 20 Blood Pressure 115/56 O2 Sat by Pulse Oximetry 96 Intake and Output: Intake & Output 09/01/21 09/02/21 09/03/21 09/04/21 11:59 11:59 11:59 11:59 Intake Total 2966 / 2966 2764 / 2764 1772 / 1772 1025 / 1025 Output Total 800 / 800 650 / 650 Balance 2166 / 2166 2114 / 2114 1772 / 1772 1025 / 1025 - Physical Exam Oriented: Normal Eyes: Normal Ear: Normal Nose: Normal Throat: Normal Respiratory: Right, Left, Rhonchi Cardiovascular: Normal : Normal Auscultation: Bowel Sounds: Normal Palpation: Normal Tenderness: Normal Skin: Normal Musculoskeletal: Normal Psychiatric: Normal Mood Description: Calm Affect: Normal Speech Pattern: Clear, Delayed - Laboratory and Diagnostics Result Diagrams: 09/03/21 04:50 09/03/21 12:08 Labs: 08/26/21 04:25 Urine,Clean Catch Urine Culture - Preliminary Streptococcus Pneumoniae 08/25/21 22:39 Blood Blood Culture - Final 08/25/21 22:32 Blood Blood Culture - Final Laboratory WBC 2.9 X10^3/uL (3.6-10.0) L 09/03/21 04:50 RBC 3.38 X10^6/uL (3.5-5.4) L 09/03/21 04:50 Hgb 8.4 g/dL (12.0-16.0) L 09/03/21 04:50 Hct 24.5 % (36.0-47.0) L 09/03/21 04:50 MCV 72.7 fL (80.0-100.0) L 09/03/21 04:50 MCH 24.9 pg (27.0-34.0) L 09/03/21 04:50 MCHC 34.3 g/dL (33.0-35.0) 09/03/21 04:50 RDW 19.6 % (11.6-16.5) H 09/03/21 04:50 Plt Count 308 X10^3/uL (150.0-450.0) 09/03/21 04:50 Plt Count Comment Adequate (ADEQUATE) 09/03/21 04:50 MPV 7.7 fL (7.4-11.0) 09/03/21 04:50 Neut % (Auto) 82.4 % (42.0-75.0) H 09/03/21 04:50 Lymph % (Auto) 11.6 % (21.0-51.0) L 09/03/21 04:50 [place] % (Auto) 4.0 % (0.0-13.0) 09/03/21 04:50 Eos % (Auto) 1.4 % (0.9-2.9) 09/03/21 04:50 Baso % (Auto) 0.6 % (0.2-1.0) 09/03/21 04:50 Neut # (Auto) 2.4 x10^3/uL (2.2-4.8) 09/03/21 04:50 Lymph # (Auto) 0.3 X10^3/uL (1.3-2.9) L 09/03/21 04:50 [place] # (Auto) 0.1 x10^3/uL (0.3-0.8) L 09/03/21 04:50 Eos # (Auto) 0.0 x10^3/uL (0.0-0.2) 09/03/21 04:50 Baso # (Auto) 0.0 X10^3/uL (0.0-0.1) 09/03/21 04:50 Absolute Nucleated RBC 0.1 /100WBC 09/03/21 04:50 Total Counted 100 08/31/21 04:27 Neutrophils % (Manual) 88 % (39-76) H 08/31/21 04:27 Band Neutrophils % 1 % (0-10) 08/31/21 04:27 Lymphocytes % (Manual) 10 % (13-43) L 08/31/21 04:27 Monocytes % (Manual) 1 % (4-9) L 08/31/21 04:27 Plt Morphology Comment Normal (NORMAL) 09/03/21 04:50 RBC Morphology Abnormal (NORMAL) A 09/03/21 04:50 Hypochromasia Slight A 09/03/21 04:50 Anisocytosis Slight A 09/03/21 04:50 Microcytosis Slight A 09/03/21 04:50 Ovalocytes Present 09/03/21 04:50 [place] Cells Present 08/31/21 04:27 D-Dimer 0.61 ug/ml (0.0-0.57) H* 08/25/21 13:19 Sample Site Lr 09/03/21 05:00 ABG pH 7.460 (7.35-7.45) H 09/03/21 05:00 ABG pCO2 36.0 mmHg (35.0-45.0) 09/03/21 05:00 ABG pO2 61.0 mmHg (80.0-100.0) L 09/03/21 05:00 ABG HCO3 25.6 mmol/L (22-26) 09/03/21 05:00 ABG O2 Saturation 92.0 % (90-100) 09/03/21 05:00 ABG Base Excess 1.9 mmol/L (-2.0-2.0) 09/03/21 05:00 Arjun Test Pos 09/03/21 05:00 A-a Gradient 208.0 mmHg 09/03/21 05:00 FiO2 44.0 09/03/21 05:00 Blood Gas Comments [place] well sw 09/03/21 05:00 Sodium 138 mmol/L (136-145) 09/03/21 04:50 Corrected Sodium 139 mmol/L (136-145) 09/03/21 04:50 Potassium 3.2 mmol/L (3.5-5.1) L 09/03/21 12:08 Chloride 100 mmol/L (98-107) 09/03/21 04:50 Carbon Dioxide 25.0 mmol/L (21-32) 09/03/21 04:50 BUN 27 mg/dL (7-18) H 09/03/21 04:50 Creatinine 1.43 mg/dL (0.55-1.02) H 09/03/21 04:50 Est GFR (MDRD) Af Amer 46 (>60) L 09/03/21 04:50 Est GFR (MDRD) Non-Af 38 (>60) L 09/03/21 04:50 Glucose 154 mg/dL (65-99) H 09/03/21 04:50 POC Glucose (mg/dL) 253 mg/dL (65-99) H 09/03/21 11:11 Calcium 8.9 mg/dL (8.5-10.1) 09/03/21 04:50 Corrected Calcium 10.7 mg/dL (8.5-10.1) H 09/03/21 04:50 Magnesium 2.3 mg/dL (1.7-2.9) 09/03/21 04:50 Total Bilirubin 0.30 mg/dL (0.2-1.0) 09/03/21 04:50 AST 145 Units/L (15-37) H 09/03/21 04:50 ALT 102 Units/L (12-78) H 09/03/21 04:50 Alkaline Phosphatase 73 Units/L (46-116) 09/03/21 04:50 C-Reactive Protein 127.50 mg/L (0-3.0) H 09/03/21 04:50 B-Natriuretic Peptide 58.8 pg/mL (0-79) 09/03/21 04:50 Total Protein 7.3 g/dL (6.4-8.2) 09/03/21 04:50 Albumin 1.7 g/dL (3.4-5.0) L 09/03/21 04:50 Globulin 5.6 g/dL (2.5-4.5) H 09/03/21 04:50 Albumin/Globulin Ratio 0.3 Ratio (1.1-2.1) L 09/03/21 04:50 Specimen Type Clean catch urine 08/26/21 04:25 Urine Color Yellow (YELLOW) 08/26/21 04:25 Urine Appearance Slightly hazy (CLEAR) 08/26/21 04:25 Urine pH 5.0 (5.0 - 8.0) 08/26/21 04:25 Ur Specific [place] 1.020 (1.000-1.030) 08/26/21 04:25 Urine Protein 3+ (NEGATIVE) 08/26/21 04:25 Urine Glucose (UA) Negative (NEGATIVE) 08/26/21 04:25 Urine Ketones Negative (NEGATIVE) 08/26/21 04:25 Urine Occult Blood Negative (NEGATIVE) 08/26/21 04:25 Urine Nitrite Negative (NEGATIVE) 08/26/21 04:25 Urine Bilirubin Negative (NEGATIVE) 08/26/21 04:25 Urine Urobilinogen Normal (NORMAL) 08/26/21 04:25 Ur Leukocyte Esterase Negative (NEGATIVE) 08/26/21 04:25 Urine RBC 0-2 /HPF (0-3) 08/26/21 04:25 Urine WBC 3-5 /HPF (0-5) 08/26/21 04:25 Ur Squamous Epith Cells Rare /HPF (NEGATIVE) 08/26/21 04:25 Amorphous Sediment 1+ /HPF (NEGATIVE) 08/26/21 04:25 Urine Bacteria 3+ /HPF (NEGATIVE) 08/26/21 04:25 Granular Casts Few /LPF (NEGATIVE) 08/26/21 04:25 Coarse Granular Casts Few /HPF (NEGATIVE) 08/25/21 20:00 Urine Mucus Few /HPF (NEGATIVE) 08/25/21 20:00 Ur Culture Indicated? Yes/culture set up 08/26/21 04:25 Miscellaneous Test Procalcitonin 08/30/21 13:34 - Plan (1) Pneumonia due to COVID-19 virus Status: Acute (2) UTI (urinary tract infection) Status: Acute Qualifiers: Urinary tract infection type: acute cystitis Hematuria presence: without hematuria Qualified Code(s): N30.00 - Acute cystitis without hematuria (3) Thrombocytopenia Status: Acute (4) Hypothyroidism Status: Chronic Plan: resume levothyroxine (5) Dyslipidemia Status: Chronic (6) HTN (hypertension) Status: Chronic Qualifiers: Hypertension type: unspecified Qualified Code(s): I10 - Essential (primary) hypertension (7) DM2 (diabetes mellitus, type 2) Status: Chronic Qualifiers: Diabetes mellitus terminal manager insulin use: with terminal manager use Diabetes mellitus complication status: with hyperglycemia Qualified Code(s): E11.65 - Type 2 diabetes mellitus with hyperglycemia; Z79.4 - middle or intermediate [employer] principal (current) use of insulin Plan: Reg insulin sliding scale (8) CKD (chronic kidney disease) stage 4, GFR 15-29 ml/min Status: Chronic Plan: IV hydration. D/C Metformin
[2021-09-03] MEDS: K-DUR TAB 20 MEQ PO PRN (17:10)
[2021-09-03] MEDS: ALBUMIN HUMAN 25%- 100 ML 100 ML IV SCH (17:23)
[2021-09-03] MEDS: SNACK - Diabetic Appropriate PO SCH (20:19)
[2021-09-03] MEDS: PEPCID TAB 20 MG PO SCH (21:20)
[2021-09-03] MEDS: NEURONTIN CAP 100 MG PO SCH (21:20)
[2021-09-04] MEDS: ASCORBIC ACID INJ MULTI-DOSE VIAL 1,500 MG in NS 50 ML IV 50 ML IV SCH ×4 (02:46→20:43)
[2021-09-04 04:44] LABS: ABG BASE EXCESS -0.1 mmol/L (-2.0-2.0); ABG HCO3 23.9 mmol/L (22-26)
[2021-09-04 04:45] LABS: ABG ALLEN TEST POS
[2021-09-04] MEDS: XOPENEX 1.25 MG/3 ML NEBULE NEB PRN ×3 (05:10→20:15)
[2021-09-04] MEDS: NovoLIN R (or HumuLIN R) SUBCUT PRN ×4 (05:12→20:46)
[2021-09-04] MEDS: SOLU-Medrol 40 MG VIAL IVP SCH ×3 (05:13→22:50)
[2021-09-04 05:44] LABS: BASOPHILS % (AUTO) 0.3 % (0.2-1.0); HEMATOCRIT 27.8 % (36.0-47.0); HEMOGLOBIN 9.3 g/dL (12.0-16.0); LYMPHOCYTES # (AUTO) 0.2 X10^3/uL (1.3-2.9); LYMPHOCYTES % (AUTO) 13.4 % (21.0-51.0); MEAN CORPUSCULAR HEMOGLOBIN 23.5 pg (27.0-34.0); MEAN CORPUSCULAR HGB CONC 33.6 g/dL (33.0-35.0); MEAN PLATELET VOLUME 7.8 fL (7.4-11.0); MONOCYTES # (AUTO) 0.1 x10^3/uL (0.3-0.8); MONOCYTES % (AUTO) 3.2 % (0.0-13.0); NEUTROPHILS # (AUTO) 1.5 x10^3/uL (2.2-4.8); NEUTROPHILS % (AUTO) 83.1 % (42.0-75.0); RED BLOOD COUNT 3.97 X10^6/uL (3.5-5.4); RED CELL DISTRIBUTION WIDTH 19.6 % (11.6-16.5)
[2021-09-04 05:50] LABS: WHITE BLOOD COUNT 1.8 X10^3/uL (3.6-10.0)
[2021-09-04 05:55] LABS: ALANINE AMINOTRANSFERASE 110 Units/L (12-78); ALBUMIN 2.2 g/dL (3.4-5.0); ALKALINE PHOSPHATASE 99 Units/L (46-116); ASPARTATE AMINO TRANSFERASE 112 Units/L (15-37); BLOOD UREA NITROGEN 29 mg/dL (7-18); CALCIUM 9.3 mg/dL (8.5-10.1); CARBON DIOXIDE 22.9 mmol/L (21-32); CHLORIDE 102 mmol/L (98-107); COR CA(FOR HYPOALB) 10.7 mg/dL (8.5-10.1); COR NA(FOR HYPERGLY) 141 mmol/L (136-145); CREATININE 1.08 mg/dL (0.55-1.02); SODIUM 137 mmol/L (136-145); TOTAL PROTEIN 7.9 g/dL (6.4-8.2); eGFR NON BLACK RACES 53 (>60)
--- NOTE | 2021-09-04 07:11 | RAD ---
HISTORYCOVID-19 pneumoniaSTUDYAP chestCOMPARISONFebruary 2021FINDINGSStable normal heart size. Similar appearance of bilateral infiltrates without additional consolidation identified. No complicating extrapulmonary air or large pleural effusion identified.IMPRESSIONNo change in appearance of bilateral pneumonia.Electronically signed by: ANGEL GONZALEZ (Sep 04, 2021 07:10:24)
[2021-09-04 08:01] LABS: ANISOCYTOSIS SLIGHT; HYPOCHROMASIA 1+; MICROCYTOSIS SLIGHT; PLATELET MORPHOLOGY COMMENT NORMAL (NORMAL)
[2021-09-04 08:02] LABS: OVALOCYTES PRESENT
[2021-09-04] MEDS: K-DUR TAB 20 MEQ PO SCH ×2 (09:00→20:43)
[2021-09-04] MEDS: LOPRESSOR TAB 25 MG PO SCH ×2 (09:00→20:44)
[2021-09-04] MEDS: SYNTHROID 88 mcg TAB PO SCH (09:00)
[2021-09-04] MEDS: VITAMIN D3 125 mcg (5,000 UNITS) PO SCH (09:00)
[2021-09-04] MEDS: VITAMIN A PO SCH (09:00)
[2021-09-04] MEDS: CRESTOR TAB 10 MG PO SCH (09:00)
[2021-09-04] MEDS: PULMICORT NEB TX 0.5 MG NEB SCH ×2 (09:06→20:15)
[2021-09-04] MEDS: BROVANA IN SCH ×2 (09:06→20:15)
[2021-09-04] MEDS: FERROUS GLUCONATE PO SCH ×2 (09:33→20:43)
[2021-09-04] MEDS: LOVENOX INJ 30 MG SYR SC SCH (09:34)
[2021-09-04] MEDS: MERREM VIAL 1 G in NS 100 ML IV + SPIKE MINIBAG* 100 ML IV SCH ×2 (09:49→20:44)
[2021-09-04] MEDS: DIFLUCAN 100 MG IV (MIX by PHARMACY)* 100 MG/50 ML BAG IV SCH (10:59)
[2021-09-04] MEDS: NS + KCL 20 MEQ/L 1,000 ML IV SCH (12:38)
[2021-09-04] MEDS: ALBUMIN HUMAN 25%- 100 ML 100 ML IV SCH (12:38)
[2021-09-04] MEDS: LEVAQUIN PREMIX IV 250 MG 250 MG/50 ML BAG IV SCH (13:00)
--- NOTE | 2021-09-04 16:02 | PCM.PROG ---
Progress Note - Progress Note for Day of Date of Exam: 09/04/21 - Subjective Subjective: IS A 76 YEAR OLD PATIENT OF [facility]/. PMH OF ANEMIA, DM II, DYSLIPIDEMIA, HTN, HYPOTHYROIDISM, RENAL DISEASE. SHE IS BEING TREATED FOR PNEUMONIA DUE TO COVID-19, HYPOXIA, UTI, CKD, ANEMIA. SHE RECEIVED A SOTROVOMAB INFUSION ON ADMISSION. TODAY, SHE IS ALERT AND ORIENTED, LYING IN BED ON MORNING ROUNDS. SHE CONTINUES WITH SHORTNESS OF BREATH AT TIMES AND WEAKNESS, BUT DENIES OTHER COMPLAINTS. SHE IS CURRENTLY UTILIZING OXYGEN VIA NASAL CANNULA AT 6 LPM. SATURATIONS HAVE REMAINED ABOVE 90% THIS MORNING. ON EXAMINATION, HEART IS REGULAR IN RATE AND RHYTHM. BILATERAL LUNGS NOTED WITH RHONCHI THROUGOUT. ABDOMEN IS ROUND, SOFT, AND NON-TENDER WITH NORMAL BOWEL SOUNDS NOTED IN ALL QUADRANTS. HER VITALS THIS MORNING ARE: 97.5-68-18-94%-103/53. LABS WERE OBTAINED. ABNORMAL LAB VALUES INCLUDE THE FOLLOWING: WBC 1.8, HGB 9.3, HCT 27.8, BUN 29, CREATININE 1.08, GLUCOSE 284, AST 112, ALT 110, CRP 101, BNP 394, ALBUMIN 2.2, GLOBULIN 5.7. CHEST XRAY REVEALED: No change in appearance of bilateral pneumonia. SHE IS RECEIVING NS WITH 20MEQ KCL AT KVO, POTASSIUM AND MAGNESIUM PROTOCOLS, ALBUMIN 25% IV DAILY, SOLU-MEDROL 20MG IV Q8H, MEROPENEM 1G IV Q12H, LEVAQUIN 250MG IV DAILY, ASCORBIC ACID 1500MG IV Q6H, DIFLUCAN 100MG IV DAILY, HUMULIN R SLIDING SCALE, NEBULIZER TREAMENTS, LOVENOX 30MG SC DAILY, AND HOME MEDICATIONS WERE RESUMED. WE WILL CONTINUE WITH CURRENT PLAN OF CARE TODAY. OTHERWISE, WE PLAN TO FOLLOW UP WITH AM LABS AND CHEST XRAY AND CONTINUE TO MONITOR. TIME SPENT ON CLINICAL ASSESSMENT, REVIEWING LABS AND IMAGING, DECISION MAKING, AND DOCUMENTATION WAS GREATER THAN 45 MINUTES. - Past Medical Family Social History Past Med/Fam/Surg Hx: No changes since H&P Allergies: Allergies No Known Drug Allergies Allergy (Verified 08/25/21 14:20) - Review of Systems ROS: No change since H&P - Vital Signs and I&O's Vital Signs: Temperature 97.6 F Pulse Rate 84 Respiratory Rate 22 Blood Pressure 138/63 O2 Sat by Pulse Oximetry 93 Intake and Output: Intake & Output 09/02/21 09/03/21 09/04/21 09/05/21 11:59 11:59 11:59 11:59 Intake Total 2764 / 2764 1772 / 1772 2168 / 2168 Output Total 650 / 650 Balance 2114 / 2114 1772 / 1772 2167 / 216 - Physical Exam Oriented: Normal Eyes: Normal Ear: Normal Nose: Normal Throat: Normal Respiratory: Right, Left, Rhonchi Cardiovascular: Normal : Normal Auscultation: Bowel Sounds: Normal Tenderness: Normal Skin: Normal Musculoskeletal: Normal Psychiatric: Normal Mood Description: Calm Affect: Normal Speech Pattern: Clear - Laboratory and Diagnostics Result Diagrams: 09/04/21 04:40 09/04/21 11:18 Labs: 08/26/21 04:25 Urine,Clean Catch Urine Culture - Final 08/25/21 22:39 Blood Blood Culture - Final 08/25/21 22:32 Blood Blood Culture - Final Laboratory WBC 1.8 X10^3/uL (3.6-10.0) L* 09/04/21 04:40 RBC 3.97 X10^6/uL (3.5-5.4) 09/04/21 04:40 Hgb 9.3 g/dL (12.0-16.0) L 09/04/21 04:40 Hct 27.8 % (36.0-47.0) L 09/04/21 04:40 MCV 70.0 fL (80.0-100.0) L 09/04/21 04:40 MCH 23.5 pg (27.0-34.0) L 09/04/21 04:40 MCHC 33.6 g/dL (33.0-35.0) 09/04/21 04:40 RDW 19.6 % (11.6-16.5) H 09/04/21 04:40 Plt Count 314 X10^3/uL (150.0-450.0) 09/04/21 04:40 Plt Count Comment Adequate (ADEQUATE) 09/04/21 04:40 MPV 7.8 fL (7.4-11.0) 09/04/21 04:40 Neut % (Auto) 83.1 % (42.0-75.0) H 09/04/21 04:40 Lymph % (Auto) 13.4 % (21.0-51.0) L 09/04/21 04:40 [place] % (Auto) 3.2 % (0.0-13.0) 09/04/21 04:40 Eos % (Auto) 0.0 % (0.9-2.9) L 09/04/21 04:40 Baso % (Auto) 0.3 % (0.2-1.0) 09/04/21 04:40 Neut # (Auto) 1.5 x10^3/uL (2.2-4.8) L 09/04/21 04:40 Lymph # (Auto) 0.2 X10^3/uL (1.3-2.9) L 09/04/21 04:40 [place] # (Auto) 0.1 x10^3/uL (0.3-0.8) L 09/04/21 04:40 Eos # (Auto) 0.0 x10^3/uL (0.0-0.2) 09/04/21 04:40 Baso # (Auto) 0.0 X10^3/uL (0.0-0.1) 09/04/21 04:40 Absolute Nucleated RBC 0.2 /100WBC 09/04/21 04:40 Total Counted 100 08/31/21 04:27 Neutrophils % (Manual) 88 % (39-76) H 08/31/21 04:27 Band Neutrophils % 1 % (0-10) 08/31/21 04:27 Lymphocytes % (Manual) 10 % (13-43) L 08/31/21 04:27 Monocytes % (Manual) 1 % (4-9) L 08/31/21 04:27 Plt Morphology Comment Normal (NORMAL) 09/04/21 04:40 RBC Morphology Abnormal (NORMAL) A 09/04/21 04:40 Hypochromasia 1+ A 09/04/21 04:40 Anisocytosis Slight A 09/04/21 04:40 Microcytosis Slight A 09/04/21 04:40 Ovalocytes Present 09/04/21 04:40 [place] Cells Present 08/31/21 04:27 D-Dimer 0.61 ug/ml (0.0-0.57) H* 01/27/22 13:19 Sample Site Lr 09/04/21 04:40 ABG pH 7.430 (7.35-7.45) 09/04/21 04:40 ABG pCO2 36.0 mmHg (35.0-45.0) 09/04/21 04:40 ABG pO2 60.0 mmHg (80.0-100.0) L 09/04/21 04:40 ABG HCO3 23.9 mmol/L (22-26) 09/04/21 04:40 ABG O2 Saturation 91.0 % (90-100) 09/04/21 04:40 ABG Base Excess -0.1 mmol/L (-2.0-2.0) 09/04/21 04:40 Arjun Test Pos 09/04/21 04:40 A-a Gradient 216.0 mmHg 09/04/21 04:40 FiO2 45.0 09/04/21 04:40 Blood Gas Comments Dolores well ae 09/04/21 04:40 Sodium 137 mmol/L (136-145) 09/04/21 04:40 Corrected Sodium 141 mmol/L (136-145) 09/04/21 04:40 Potassium 3.8 mmol/L (3.5-5.1) 09/04/21 04:40 Chloride 102 mmol/L (98-107) 09/04/21 04:40 Carbon Dioxide 22.9 mmol/L (21-32) 09/04/21 04:40 BUN 29 mg/dL (7-18) H 09/04/21 04:40 Creatinine 1.08 mg/dL (0.55-1.02) H 09/04/21 04:40 Est GFR (MDRD) Af Amer > 60 (>60) 09/04/21 04:40 Est GFR (MDRD) Non-Af 53 (>60) L 09/04/21 04:40 Glucose 464 mg/dL (65-99) H 09/04/21 11:18 POC Glucose (mg/dL) 399 mg/dL (65-99) H 09/04/21 15:51 Calcium 9.3 mg/dL (8.5-10.1) 09/04/21 04:40 Corrected Calcium 10.7 mg/dL (8.5-10.1) H 09/04/21 04:40 Magnesium 2.3 mg/dL (1.7-2.9) 09/03/21 04:50 Total Bilirubin 0.30 mg/dL (0.2-1.0) 09/04/21 04:40 AST 112 Units/L (15-37) H 09/04/21 04:40 ALT 110 Units/L (12-78) H 09/04/21 04:40 Alkaline Phosphatase 99 Units/L (46-116) 09/04/21 04:40 C-Reactive Protein 101.00 mg/L (0-3.0) H 09/04/21 04:40 B-Natriuretic Peptide 394 pg/mL (0-79) H 09/04/21 04:40 Total Protein 7.9 g/dL (6.4-8.2) 09/04/21 04:40 Albumin 2.2 g/dL (3.4-5.0) L 09/04/21 04:40 Globulin 5.7 g/dL (2.5-4.5) H 09/04/21 04:40 Albumin/Globulin Ratio 0.4 Ratio (1.1-2.1) L 09/04/21 04:40 Specimen Type Clean catch urine 08/26/21 04:25 Urine Color Yellow (YELLOW) 08/26/21 04:25 Urine Appearance Slightly hazy (CLEAR) 08/26/21 04:25 Urine pH 5.0 (5.0 - 8.0) 08/26/21 04:25 Ur Specific [place] 1.020 (1.000-1.030) 08/26/21 04:25 Urine Protein 3+ (NEGATIVE) 08/26/21 04:25 Urine Glucose (UA) Negative (NEGATIVE) 08/26/21 04:25 Urine Ketones Negative (NEGATIVE) 08/26/21 04:25 Urine Occult Blood Negative (NEGATIVE) 08/26/21 04:25 Urine Nitrite Negative (NEGATIVE) 08/26/21 04:25 Urine Bilirubin Negative (NEGATIVE) 08/26/21 04:25 Urine Urobilinogen Normal (NORMAL) 08/26/21 04:25 Ur Leukocyte Esterase Negative (NEGATIVE) 08/26/21 04:25 Urine RBC 0-2 /HPF (0-3) 08/26/21 04:25 Urine WBC 3-5 /HPF (0-5) 08/26/21 04:25 Ur Squamous Epith Cells Rare /HPF (NEGATIVE) 08/26/21 04:25 Amorphous Sediment 1+ /HPF (NEGATIVE) 08/26/21 04:25 Urine Bacteria 3+ /HPF (NEGATIVE) 08/26/21 04:25 Granular Casts Few /LPF (NEGATIVE) 08/26/21 04:25 Coarse Granular Casts Few /HPF (NEGATIVE) 08/25/21 20:00 Urine Mucus Few /HPF (NEGATIVE) 08/25/21 20:00 Ur Culture Indicated? Yes/culture set up 08/26/21 04:25 Miscellaneous Test Procalcitonin 08/30/21 13:34 - Plan (1) Pneumonia due to COVID-19 virus Status: Acute (2) UTI (urinary tract infection) Status: Acute Qualifiers: Urinary tract infection type: acute cystitis Hematuria presence: without hematuria Qualified Code(s): N30.00 - Acute cystitis without hematuria (3) Thrombocytopenia Status: Acute (4) Hypothyroidism Status: Chronic Plan: resume levothyroxine (5) Dyslipidemia Status: Chronic (6) HTN (hypertension) Status: Chronic Qualifiers: Hypertension type: unspecified Qualified Code(s): I10 - Essential (primary) hypertension (7) DM2 (diabetes mellitus, type 2) Status: Chronic Qualifiers: Diabetes mellitus intermission coordinator insulin use: with fci use Diabetes mellitus complication status: with hyperglycemia Qualified Code(s): E11.65 - Type 2 diabetes mellitus with hyperglycemia; Z79.4 - termite exterminator (current) use of insulin Plan: Reg insulin sliding scale (8) CKD (chronic kidney disease) stage 4, GFR 15-29 ml/min Status: Chronic Plan: IV hydration. D/C Metformin
[2021-09-04] MEDS: SNACK - Diabetic Appropriate PO SCH (20:42)
[2021-09-04] MEDS: NEURONTIN CAP 100 MG PO SCH (20:44)
[2021-09-04] MEDS: PEPCID TAB 20 MG PO SCH (20:45)
[2021-09-05] MEDS: ASCORBIC ACID INJ MULTI-DOSE VIAL 1,500 MG in NS 50 ML IV 50 ML IV SCH ×4 (02:09→20:30)
[2021-09-05] MEDS: XOPENEX 1.25 MG/3 ML NEBULE NEB PRN ×2 (05:15→13:34)
[2021-09-05 05:17] LABS: ABG ALLEN TEST POS; ABG BASE EXCESS 0.9 mmol/L (-2.0-2.0); ABG HCO3 23.8 mmol/L (22-26)
[2021-09-05 05:26] LABS: BASOPHILS % (AUTO) 0.1 % (0.2-1.0); HEMATOCRIT 28.6 % (36.0-47.0); HEMOGLOBIN 9.5 g/dL (12.0-16.0); LYMPHOCYTES # (AUTO) 0.4 X10^3/uL (1.3-2.9); LYMPHOCYTES % (AUTO) 7.9 % (21.0-51.0); MEAN CORPUSCULAR HEMOGLOBIN 23.1 pg (27.0-34.0); MEAN CORPUSCULAR HGB CONC 33.2 g/dL (33.0-35.0); MEAN CORPUSCULAR VOLUME 69.6 fL (80.0-100.0); MEAN PLATELET VOLUME 7.8 fL (7.4-11.0); MONOCYTES # (AUTO) 0.2 x10^3/uL (0.3-0.8); MONOCYTES % (AUTO) 3.3 % (0.0-13.0); NEUTROPHILS # (AUTO) 4.2 x10^3/uL (2.2-4.8); NEUTROPHILS % (AUTO) 88.7 % (42.0-75.0); RED BLOOD COUNT 4.11 X10^6/uL (3.5-5.4); RED CELL DISTRIBUTION WIDTH 19.9 % (11.6-16.5); WHITE BLOOD COUNT 4.8 X10^3/uL (3.6-10.0)
[2021-09-05 05:44] LABS: ALANINE AMINOTRANSFERASE 82 Units/L (12-78); ALBUMIN 2.5 g/dL (3.4-5.0); ALKALINE PHOSPHATASE 99 Units/L (46-116); ASPARTATE AMINO TRANSFERASE 60 Units/L (15-37); BLOOD UREA NITROGEN 36 mg/dL (7-18); CARBON DIOXIDE 23.8 mmol/L (21-32); CHLORIDE 101 mmol/L (98-107); COR CA(FOR HYPOALB) 10.2 mg/dL (8.5-10.1); COR NA(FOR HYPERGLY) 142 mmol/L (136-145); CREATININE 1.07 mg/dL (0.55-1.02); SODIUM 137 mmol/L (136-145); TOTAL PROTEIN 7.6 g/dL (6.4-8.2); eGFR NON BLACK RACES 53 (>60)
[2021-09-05] MEDS: NovoLIN R (or HumuLIN R) SUBCUT PRN ×5 (05:47→23:16)
[2021-09-05] MEDS: SOLU-Medrol 40 MG VIAL IVP SCH ×3 (05:48→21:00)
--- NOTE | 2021-09-05 06:03 | RAD ---
HISTORYCOVID+STUDYCHEST, 1 VIEWCOMPARISONOne day prior.TECHNIQUEAP view of the chestFINDINGSCardiac and mediastinal contours are within normal limits. No significant change in bilateral airspace and interstitial opacities. No definite pleural effusion or pneumothorax.IMPRESSIONNo significant change.Electronically signed by: Levy Barger (Sep 05, 2021 06:02:40)
[2021-09-05 06:17] LABS: OVALOCYTES PRESENT; PLATELET MORPHOLOGY COMMENT NORMAL (NORMAL)
[2021-09-05] MEDS: FERROUS GLUCONATE PO SCH ×2 (08:34→20:29)
[2021-09-05] MEDS: VITAMIN A PO SCH (08:34)
[2021-09-05] MEDS: K-DUR TAB 20 MEQ PO SCH ×2 (08:34→20:30)
[2021-09-05] MEDS: VITAMIN D3 125 mcg (5,000 UNITS) PO SCH (08:34)
[2021-09-05] MEDS: CRESTOR TAB 10 MG PO SCH (08:34)
[2021-09-05] MEDS: LOPRESSOR TAB 25 MG PO SCH ×2 (08:34→20:30)
[2021-09-05] MEDS: SYNTHROID 88 mcg TAB PO SCH (08:34)
[2021-09-05] MEDS: LEVAQUIN PREMIX IV 250 MG 250 MG/50 ML BAG IV SCH (09:20)
[2021-09-05] MEDS: PULMICORT NEB TX 0.5 MG NEB SCH ×2 (09:20→21:36)
[2021-09-05] MEDS: BROVANA IN SCH ×2 (09:20→21:36)
[2021-09-05] MEDS: MERREM VIAL 1 G in NS 100 ML IV + SPIKE MINIBAG* 100 ML IV SCH ×2 (10:18→20:30)
[2021-09-05] MEDS: LOVENOX INJ 30 MG SYR SC SCH (10:35)
[2021-09-05] MEDS: NS + KCL 20 MEQ/L 1,000 ML IV SCH (10:35)
[2021-09-05] MEDS: ALBUMIN HUMAN 25%- 100 ML 100 ML IV SCH (11:37)
[2021-09-05] MEDS: DIFLUCAN 100 MG IV (MIX by PHARMACY)* 100 MG/50 ML BAG IV SCH (12:20)
[2021-09-05] MEDS: SNACK - Diabetic Appropriate PO SCH (20:00)
[2021-09-05] MEDS: NEURONTIN CAP 100 MG PO SCH (20:30)
[2021-09-05] MEDS: PEPCID TAB 20 MG PO SCH (20:30)
[2021-09-06] MEDS: ASCORBIC ACID INJ MULTI-DOSE VIAL 1,500 MG in NS 50 ML IV 50 ML IV SCH ×4 (04:00→20:19)
[2021-09-06 05:23] LABS: BASOPHILS % (AUTO) 0.1 % (0.2-1.0); HEMATOCRIT 28.3 % (36.0-47.0); HEMOGLOBIN 9.5 g/dL (12.0-16.0); LYMPHOCYTES # (AUTO) 0.4 X10^3/uL (1.3-2.9); LYMPHOCYTES % (AUTO) 8.7 % (21.0-51.0); MEAN CORPUSCULAR HEMOGLOBIN 23.5 pg (27.0-34.0); MEAN CORPUSCULAR HGB CONC 33.7 g/dL (33.0-35.0); MEAN CORPUSCULAR VOLUME 69.9 fL (80.0-100.0); MEAN PLATELET VOLUME 7.7 fL (7.4-11.0); MONOCYTES # (AUTO) 0.3 x10^3/uL (0.3-0.8); MONOCYTES % (AUTO) 5.6 % (0.0-13.0); NEUTROPHILS # (AUTO) 3.9 x10^3/uL (2.2-4.8); NEUTROPHILS % (AUTO) 85.6 % (42.0-75.0); RED BLOOD COUNT 4.05 X10^6/uL (3.5-5.4); WHITE BLOOD COUNT 4.6 X10^3/uL (3.6-10.0)
[2021-09-06] MEDS: SOLU-Medrol 40 MG VIAL IVP SCH ×3 (05:25→22:00)
[2021-09-06] MEDS: NovoLIN R (or HumuLIN R) SUBCUT PRN ×4 (05:36→20:22)
[2021-09-06 05:38] LABS: ALANINE AMINOTRANSFERASE 65 Units/L (12-78); ALBUMIN 2.7 g/dL (3.4-5.0); ALKALINE PHOSPHATASE 92 Units/L (46-116); ASPARTATE AMINO TRANSFERASE 45 Units/L (15-37); BLOOD UREA NITROGEN 32 mg/dL (7-18); CARBON DIOXIDE 25.3 mmol/L (21-32); CHLORIDE 104 mmol/L (98-107); COR NA(FOR HYPERGLY) 142 mmol/L (136-145); CREATININE 1.03 mg/dL (0.55-1.02); SODIUM 139 mmol/L (136-145); TOTAL PROTEIN 7.6 g/dL (6.4-8.2); eGFR NON BLACK RACES 56 (>60)
[2021-09-06 05:45] LABS: ABG ALLEN TEST Yes; ABG BASE EXCESS 2.8 mmol/L (-2.0-2.0); ABG HCO3 25.9 mmol/L (22-26)
[2021-09-06 05:52] LABS: BURR CELLS PRESENT; HYPOCHROMASIA SLIGHT; MICROCYTOSIS 1+; OVALOCYTES PRESENT; PLATELET MORPHOLOGY COMMENT NORMAL (NORMAL)
--- NOTE | 2021-09-06 07:28 | RAD ---
HISTORYCOVID F/USTUDYCHEST, 1 [id number]/07/2022.TECHNIQUEAP view of the chestFINDINGSCardiac and mediastinal contours are within normal limits. No significant change in bilateral airspace and interstitial opacities. No definite pleural effusion or pneumothorax. Soft tissue attenuation limits evaluation.IMPRESSIONNo significant change.Electronically signed by: Levy Barger (Sep 06, 2021 07:27:35)
--- NOTE | 2021-09-06 07:59 | PCM.PROG ---
Progress Note Progress Note for Day of Date of Exam: 09/05/21 Subjective Subjective: Patient reports much improvement over weekend. She is currently eating breakfast and looks much better. Plan on discharge home in a day or two. O2 sats have improved to low 90's on 4 L NC. CRP is now in the 40's down from 200's at the end of last week. Low potassium, will replace. Stable Hb. Past Medical Family Social History Past Med/Fam/Surg Hx: No changes since H&P Allergies: Allergies No Known Drug Allergies Allergy (Verified 08/25/21 14:20) Review of Systems ROS: No change since H&P Vital Signs and I&O's Vital Signs: Temperature 98.2 F Pulse Rate 72 Respiratory Rate 22 Blood Pressure 150/67 O2 Sat by Pulse Oximetry 92 Intake and Output: Intake & Output 09/03/21 09/04/21 09/05/21 09/06/21 11:59 11:59 11:59 11:59 Intake Total 1772 / 1772 2168 / 2168 3232 / 3232 3229 / 3229 Output Total 850 / 850 125 / 125 Balance 1772 / 1772 2168 / 2168 2382 / 2382 3104 / 3104 Physical Exam Oriented: Normal Eyes: Normal Ear: Normal Nose: Normal Throat: Normal Respiratory: Right, Left and Rhonchi Cardiovascular: Normal : Normal Auscultation: Bowel Sounds: Normal Tenderness: Normal Skin: Normal Musculoskeletal: Normal Psychiatric: Normal Mood Description: Calm Affect: Normal Speech Pattern: Clear Laboratory and Diagnostics Result Diagrams: 09/06/21 04:46 09/06/21 04:46 Labs: 08/26/21 04:25 Urine,Clean Catch Urine Culture - Final 08/25/21 22:39 Blood Blood Culture - Final 08/25/21 22:32 Blood Blood Culture - Final Laboratory WBC 4.6 X10^3/uL (3.6-10.0) 09/06/21 04:46 RBC 4.05 X10^6/uL (3.5-5.4) 09/06/21 04:46 Hgb 9.5 g/dL (12.0-16.0) L 09/06/21 04:46 Hct 28.3 % (36.0-47.0) L 09/06/21 04:46 MCV 69.9 fL (80.0-100.0) L 09/06/21 04:46 MCH 23.5 pg (27.0-34.0) L 09/06/21 04:46 MCHC 33.7 g/dL (33.0-35.0) 09/06/21 04:46 RDW 20.0 % (11.6-16.5) H 09/06/21 04:46 Plt Count 381 X10^3/uL (150.0-450.0) 09/06/21 04:46 Plt Count Comment Adequate (ADEQUATE) 09/06/21 04:46 MPV 7.7 fL (7.4-11.0) 09/06/21 04:46 Neut % (Auto) 85.6 % (42.0-75.0) H 09/06/21 04:46 Lymph % (Auto) 8.7 % (21.0-51.0) L 09/06/21 04:46 [place] % (Auto) 5.6 % (0.0-13.0) 09/06/21 04:46 Eos % (Auto) 0.0 % (0.9-2.9) L 09/06/21 04:46 Baso % (Auto) 0.1 % (0.2-1.0) L 09/06/21 04:46 Neut # (Auto) 3.9 x10^3/uL (2.2-4.8) 09/06/21 04:46 Lymph # (Auto) 0.4 X10^3/uL (1.3-2.9) L 09/06/21 04:46 [place] # (Auto) 0.3 x10^3/uL (0.3-0.8) 09/06/21 04:46 Eos # (Auto) 0.0 x10^3/uL (0.0-0.2) 09/06/21 04:46 Baso # (Auto) 0.0 X10^3/uL (0.0-0.1) 09/06/21 04:46 Absolute Nucleated RBC 0.1 /100WBC 09/06/21 04:46 Total Counted 100 08/31/21 04:27 Neutrophils % (Manual) 88 % (39-76) H 08/31/21 04:27 Band Neutrophils % 1 % (0-10) 08/31/21 04:27 Lymphocytes % (Manual) 10 % (13-43) L 08/31/21 04:27 Monocytes % (Manual) 1 % (4-9) L 08/31/21 04:27 Plt Morphology Comment Normal (NORMAL) 09/06/21 04:46 RBC Morphology Abnormal (NORMAL) A 09/06/21 04:46 Hypochromasia Slight A 09/06/21 04:46 Anisocytosis Slight A 09/04/21 04:40 Microcytosis 1+ A 09/06/21 04:46 Ovalocytes Present 09/06/21 04:46 [place] Cells Present 09/06/21 04:46 Acanthocytes (Spur) Present 09/06/21 04:46 D-Dimer 0.61 ug/ml (0.0-0.57) H* 08/25/21 13:19 Sample Site Rr 09/06/21 05:40 ABG pH 7.490 (7.35-7.45) H 09/06/21 05:40 ABG pCO2 34.0 mmHg (35.0-45.0) L 09/06/21 05:40 ABG pO2 59.0 mmHg (80.0-100.0) L 09/06/21 05:40 ABG HCO3 25.9 mmol/L (22-26) 09/06/21 05:40 ABG O2 Saturation 92.0 % (90-100) 09/06/21 05:40 ABG Base Excess 2.8 mmol/L (-2.0-2.0) H 09/06/21 05:40 Arjun Test Yes 09/06/21 05:40 A-a Gradient 155.0 mmHg 09/06/21 05:40 FiO2 36.0 09/06/21 05:40 Blood Gas Comments Dolores well 09/06/21 05:40 Sodium 139 mmol/L (136-145) 09/06/21 04:46 Corrected Sodium 142 mmol/L (136-145) 09/06/21 04:46 Potassium 3.2 mmol/L (3.5-5.1) L 09/06/21 04:46 Chloride 104 mmol/L (98-107) 09/06/21 04:46 Carbon Dioxide 25.3 mmol/L (21-32) 09/06/21 04:46 BUN 32 mg/dL (7-18) H 09/06/21 04:46 Creatinine 1.03 mg/dL (0.55-1.02) H 09/06/21 04:46 Est GFR (MDRD) Af Amer > 60 (>60) 09/06/21 04:46 Est GFR (MDRD) Non-Af 56 (>60) L 09/06/21 04:46 Glucose 210 mg/dL (65-99) H 09/06/21 04:46 POC Glucose (mg/dL) 209 mg/dL (65-99) H 09/06/21 05:11 Calcium 9.0 mg/dL (8.5-10.1) 09/06/21 04:46 Corrected Calcium 10.0 mg/dL (8.5-10.1) 09/06/21 04:46 Magnesium 2.1 mg/dL (1.7-2.9) 09/06/21 04:46 Total Bilirubin 0.30 mg/dL (0.2-1.0) 09/06/21 04:46 AST 45 Units/L (15-37) H 09/06/21 04:46 ALT 65 Units/L (12-78) 09/06/21 04:46 Alkaline Phosphatase 92 Units/L (46-116) 09/06/21 04:46 C-Reactive Protein 20.50 mg/L (0-3.0) H 09/06/21 04:46 B-Natriuretic Peptide 147 pg/mL (0-79) H 09/06/21 04:46 Total Protein 7.6 g/dL (6.4-8.2) 09/06/21 04:46 Albumin 2.7 g/dL (3.4-5.0) L 09/06/21 04:46 Globulin 4.9 g/dL (2.5-4.5) H 09/06/21 04:46 Albumin/Globulin Ratio 0.6 Ratio (1.1-2.1) L 09/06/21 04:46 Specimen Type Clean catch urine 08/26/21 04:25 Urine Color Yellow (YELLOW) 08/26/21 04:25 Urine Appearance Slightly hazy (CLEAR) 08/26/21 04:25 Urine pH 5.0 (5.0 - 8.0) 08/26/21 04:25 Ur Specific [place] 1.020 (1.000-1.030) 08/26/21 04:25 Urine Protein 3+ (NEGATIVE) 08/26/21 04:25 Urine Glucose (UA) Negative (NEGATIVE) 08/26/21 04:25 Urine Ketones Negative (NEGATIVE) 08/26/21 04:25 Urine Occult Blood Negative (NEGATIVE) 08/26/21 04:25 Urine Nitrite Negative (NEGATIVE) 08/26/21 04:25 Urine Bilirubin Negative (NEGATIVE) 08/26/21 04:25 Urine Urobilinogen Normal (NORMAL) 08/26/21 04:25 Ur Leukocyte Esterase Negative (NEGATIVE) 08/26/21 04:25 Urine RBC 0-2 /HPF (0-3) 08/26/21 04:25 Urine WBC 3-5 /HPF (0-5) 08/26/21 04:25 Ur Squamous Epith Cells Rare /HPF (NEGATIVE) 08/26/21 04:25 Amorphous Sediment 1+ /HPF (NEGATIVE) 08/26/21 04:25 Urine Bacteria 3+ /HPF (NEGATIVE) 08/26/21 04:25 Granular Casts Few /LPF (NEGATIVE) 08/26/21 04:25 Coarse Granular Casts Few /HPF (NEGATIVE) 08/25/21 20:00 Urine Mucus Few /HPF (NEGATIVE) 08/25/21 20:00 Ur Culture Indicated? Yes/culture set up 08/26/21 04:25 Miscellaneous Test Procalcitonin 08/30/21 13:34 Radiology Reviewed: Yes Plan (1) Pneumonia due to COVID-19 virus: Status: Acute (2) UTI (urinary tract infection): Status: Acute Qualifiers: Urinary tract infection type: acute cystitis Hematuria presence: without hematuria Qualified Code(s): N30.00 - Acute cystitis without hematuria (3) Thrombocytopenia: Status: Acute (4) Hypothyroidism: Status: Chronic Plan: resume levothyroxine (5) Dyslipidemia: Status: Chronic (6) HTN (hypertension): Status: Chronic Qualifiers: Hypertension type: unspecified Qualified Code(s): I10 - Essential (primary) hypertension (7) DM2 (diabetes mellitus, type 2): Status: Chronic Qualifiers: Diabetes mellitus termite control representative insulin use: with half-way use Diabetes mellitus complication status: with hyperglycemia Qualified Code(s): E11.65 - Type 2 diabetes mellitus with hyperglycemia; Z79.4 - care home (current) use of insulin Plan: Reg insulin sliding scale (8) CKD (chronic kidney disease) stage 4, GFR 15-29 ml/min: Status: Chronic Plan: IV hydration D/C Metformin
[2021-09-06] MEDS: DIFLUCAN 100 MG IV (MIX by PHARMACY)* 100 MG/50 ML BAG IV SCH (08:05)
[2021-09-06] MEDS: PULMICORT NEB TX 0.5 MG NEB SCH ×2 (09:00→20:55)
[2021-09-06] MEDS: BROVANA IN SCH ×2 (09:00→20:55)
[2021-09-06] MEDS: LEVAQUIN PREMIX IV 250 MG 250 MG/50 ML BAG IV SCH (09:15)
[2021-09-06] MEDS: MERREM VIAL 1 G in NS 100 ML IV + SPIKE MINIBAG* 100 ML IV SCH ×2 (09:45→22:00)
[2021-09-06] MEDS: K-DUR TAB 20 MEQ PO SCH ×2 (09:45→20:18)
[2021-09-06] MEDS: VITAMIN D3 125 mcg (5,000 UNITS) PO SCH (09:45)
[2021-09-06] MEDS: LOVENOX INJ 30 MG SYR SC SCH (09:45)
[2021-09-06] MEDS: FERROUS GLUCONATE PO SCH ×2 (09:45→20:22)
[2021-09-06] MEDS: LOPRESSOR TAB 25 MG PO SCH ×2 (09:45→20:18)
[2021-09-06] MEDS: CRESTOR TAB 10 MG PO SCH (09:45)
[2021-09-06] MEDS: VITAMIN A PO SCH (09:45)
[2021-09-06] MEDS: SYNTHROID 88 mcg TAB PO SCH (09:45)
[2021-09-06] MEDS: NS + KCL 20 MEQ/L 1,000 ML IV SCH ×2 (11:00→20:20)
[2021-09-06 11:11] LABS: MICROCYTOSIS 1+
[2021-09-06] MEDS: ALBUMIN HUMAN 25%- 100 ML 100 ML IV SCH (12:59)
[2021-09-06] MEDS: XOPENEX 1.25 MG/3 ML NEBULE NEB PRN (13:45)
--- NOTE | 2021-09-06 15:03 | PCM.PROG ---
Progress Note Progress Note for Day of Date of Exam: 09/06/21 Subjective Subjective: Patient's O2 sat has dropped overnight. O2 was increased to 6L again per NC. O2 sats ar6 90's on 4 L NC. CRP is now in the 20's down from 200's at the end of last week. Low potassium, will replace. Stable Hb. Past Medical Family Social History Past Med/Fam/Surg Hx: No changes since H&P Allergies: Allergies No Known Drug Allergies Allergy (Verified 08/25/21 14:20) Review of Systems ROS: No change since H&P Vital Signs and I&O's Vital Signs: Temperature 96.8 F Pulse Rate 68 Respiratory Rate 18 Blood Pressure 149/67 O2 Sat by Pulse Oximetry 92 Intake and Output: Intake & Output 09/04/21 09/05/21 09/06/21 09/07/21 11:59 11:59 11:59 11:59 Intake Total 2168 / 2168 3232 / 3232 3229 / 3229 Output Total 850 / 850 125 / 125 Balance 2168 / 2168 2382 / 2382 3104 / 3104 Physical Exam Oriented: Normal Eyes: Normal Ear: Normal Nose: Normal Throat: Normal Respiratory: Right, Left and Rhonchi Cardiovascular: Normal : Normal Auscultation: Bowel Sounds: Normal Tenderness: Normal Skin: Normal Musculoskeletal: Normal Psychiatric: Normal Mood Description: Calm Affect: Normal Speech Pattern: Clear Laboratory and Diagnostics Result Diagrams: 09/06/21 04:46 09/06/21 04:46 Labs: 08/26/21 04:25 Urine,Clean Catch Urine Culture - Final 08/25/21 22:39 Blood Blood Culture - Final 08/25/21 22:32 Blood Blood Culture - Final Laboratory WBC 4.6 X10^3/uL (3.6-10.0) 09/06/21 04:46 RBC 4.05 X10^6/uL (3.5-5.4) 09/06/21 04:46 Hgb 9.5 g/dL (12.0-16.0) L 09/06/21 04:46 Hct 28.3 % (36.0-47.0) L 09/06/21 04:46 MCV 69.9 fL (80.0-100.0) L 09/06/21 04:46 MCH 23.5 pg (27.0-34.0) L 09/06/21 04:46 MCHC 33.7 g/dL (33.0-35.0) 09/06/21 04:46 RDW 20.0 % (11.6-16.5) H 09/06/21 04:46 Plt Count 381 X10^3/uL (150.0-450.0) 09/06/21 04:46 Plt Count Comment Adequate (ADEQUATE) 09/06/21 04:46 MPV 7.7 fL (7.4-11.0) 09/06/21 04:46 Neut % (Auto) 85.6 % (42.0-75.0) H 09/06/21 04:46 Lymph % (Auto) 8.7 % (21.0-51.0) L 09/06/21 04:46 [place] % (Auto) 5.6 % (0.0-13.0) 09/06/21 04:46 Eos % (Auto) 0.0 % (0.9-2.9) L 09/06/21 04:46 Baso % (Auto) 0.1 % (0.2-1.0) L 09/06/21 04:46 Neut # (Auto) 3.9 x10^3/uL (2.2-4.8) 09/06/21 04:46 Lymph # (Auto) 0.4 X10^3/uL (1.3-2.9) L 09/06/21 04:46 [place] # (Auto) 0.3 x10^3/uL (0.3-0.8) 09/06/21 04:46 Eos # (Auto) 0.0 x10^3/uL (0.0-0.2) 09/06/21 04:46 Baso # (Auto) 0.0 X10^3/uL (0.0-0.1) 09/06/21 04:46 Absolute Nucleated RBC 0.1 /100WBC 09/06/21 04:46 Total Counted 100 08/31/21 04:27 Neutrophils % (Manual) 88 % (39-76) H 08/31/21 04:27 Band Neutrophils % 1 % (0-10) 08/31/21 04:27 Lymphocytes % (Manual) 10 % (13-43) L 08/31/21 04:27 Monocytes % (Manual) 1 % (4-9) L 08/31/21 04:27 Plt Morphology Comment Normal (NORMAL) 09/06/21 04:46 RBC Morphology Abnormal (NORMAL) A 09/06/21 04:46 Hypochromasia Slight A 09/06/21 04:46 Anisocytosis Slight A 09/04/21 04:40 Microcytosis 1+ A 09/06/21 04:46 Ovalocytes Present 09/06/21 04:46 [place] Cells Present 09/06/21 04:46 Acanthocytes (Spur) Present 09/06/21 04:46 D-Dimer 0.61 ug/ml (0.0-0.57) H* 08/25/21 13:19 Sample Site Rr 09/06/21 05:40 ABG pH 7.490 (7.35-7.45) H 09/06/21 05:40 ABG pCO2 34.0 mmHg (35.0-45.0) L 09/06/21 05:40 ABG pO2 59.0 mmHg (80.0-100.0) L 09/06/21 05:40 ABG HCO3 25.9 mmol/L (22-26) 09/06/21 05:40 ABG O2 Saturation 92.0 % (90-100) 09/06/21 05:40 ABG Base Excess 2.8 mmol/L (-2.0-2.0) H 09/06/21 05:40 Arjun Test Yes 09/06/21 05:40 A-a Gradient 155.0 mmHg 09/06/21 05:40 FiO2 36.0 09/06/21 05:40 Blood Gas Comments Dolores well 09/06/21 05:40 Sodium 139 mmol/L (136-145) 09/06/21 04:46 Corrected Sodium 142 mmol/L (136-145) 09/06/21 04:46 Potassium 3.2 mmol/L (3.5-5.1) L 09/06/21 04:46 Chloride 104 mmol/L (98-107) 09/06/21 04:46 Carbon Dioxide 25.3 mmol/L (21-32) 09/06/21 04:46 BUN 32 mg/dL (7-18) H 09/06/21 04:46 Creatinine 1.03 mg/dL (0.55-1.02) H 09/06/21 04:46 Est GFR (MDRD) Af Amer > 60 (>60) 09/06/21 04:46 Est GFR (MDRD) Non-Af 56 (>60) L 09/06/21 04:46 Glucose 210 mg/dL (65-99) H 09/06/21 04:46 POC Glucose (mg/dL) 352 mg/dL (65-99) H 09/06/21 12:07 Calcium 9.0 mg/dL (8.5-10.1) 09/06/21 04:46 Corrected Calcium 10.0 mg/dL (8.5-10.1) 09/06/21 04:46 Magnesium 2.1 mg/dL (1.7-2.9) 09/06/21 04:46 Total Bilirubin 0.30 mg/dL (0.2-1.0) 09/06/21 04:46 AST 45 Units/L (15-37) H 09/06/21 04:46 ALT 65 Units/L (12-78) 09/06/21 04:46 Alkaline Phosphatase 92 Units/L (46-116) 09/06/21 04:46 C-Reactive Protein 20.50 mg/L (0-3.0) H 09/06/21 04:46 B-Natriuretic Peptide 147 pg/mL (0-79) H 09/06/21 04:46 Total Protein 7.6 g/dL (6.4-8.2) 09/06/21 04:46 Albumin 2.7 g/dL (3.4-5.0) L 09/06/21 04:46 Globulin 4.9 g/dL (2.5-4.5) H 09/06/21 04:46 Albumin/Globulin Ratio 0.6 Ratio (1.1-2.1) L 09/06/21 04:46 Specimen Type Clean catch urine 08/26/21 04:25 Urine Color Yellow (YELLOW) 08/26/21 04:25 Urine Appearance Slightly hazy (CLEAR) 08/26/21 04:25 Urine pH 5.0 (5.0 - 8.0) 08/26/21 04:25 Ur Specific Jackson 1.020 (1.000-1.030) 08/26/21 04:25 Urine Protein 3+ (NEGATIVE) 08/26/21 04:25 Urine Glucose (UA) Negative (NEGATIVE) 08/26/21 04:25 Urine Ketones Negative (NEGATIVE) 08/26/21 04:25 Urine Occult Blood Negative (NEGATIVE) 08/26/21 04:25 Urine Nitrite Negative (NEGATIVE) 08/26/21 04:25 Urine Bilirubin Negative (NEGATIVE) 08/26/21 04:25 Urine Urobilinogen Normal (NORMAL) 08/26/21 04:25 Ur Leukocyte Esterase Negative (NEGATIVE) 08/26/21 04:25 Urine RBC 0-2 /HPF (0-3) 08/26/21 04:25 Urine WBC 3-5 /HPF (0-5) 08/26/21 04:25 Ur Squamous Epith Cells Rare /HPF (NEGATIVE) 08/26/21 04:25 Amorphous Sediment 1+ /HPF (NEGATIVE) 08/26/21 04:25 Urine Bacteria 3+ /HPF (NEGATIVE) 08/26/21 04:25 Granular Casts Few /LPF (NEGATIVE) 08/26/21 04:25 Coarse Granular Casts Few /HPF (NEGATIVE) 08/25/21 20:00 Urine Mucus Few /HPF (NEGATIVE) 08/25/21 20:00 Ur Culture Indicated? Yes/culture set up 08/26/21 04:25 Miscellaneous Test Procalcitonin 08/30/21 13:34 Radiology Reviewed: Yes Plan (1) Pneumonia due to COVID-19 virus: Status: Acute Plan: Continue Nebs and Solumedrol as well as IV Meropenem. (2) UTI (urinary tract infection): Status: Acute Qualifiers: Urinary tract infection type: acute cystitis Hematuria presence: without hematuria Qualified Code(s): N30.00 - Acute cystitis without hematuria (3) Thrombocytopenia: Status: Acute (4) Hypothyroidism: Status: Chronic Plan: resume levothyroxine (5) Dyslipidemia: Status: Chronic (6) HTN (hypertension): Status: Chronic Qualifiers: Hypertension type: unspecified Qualified Code(s): I10 - Essential (primary) hypertension (7) DM2 (diabetes mellitus, type 2): Status: Chronic Qualifiers: Diabetes mellitus residential insulin use: with terminal carman use Diabetes mellitus complication status: with hyperglycemia Qualified Code(s): E11.65 - Type 2 diabetes mellitus with hyperglycemia; Z79.4 - MCFP (current) use of insulin Plan: Reg insulin sliding scale (8) CKD (chronic kidney disease) stage 4, GFR 15-29 ml/min: Status: Chronic Plan: IV hydration D/C Metformin
[2021-09-06] MEDS ORDERED: MILK OF MAGNESIA PO PRN (19:13)
[2021-09-06] MEDS ORDERED: COLACE CAP 100 MG PO PRN (19:13)
[2021-09-06] MEDS: SNACK - Diabetic Appropriate PO SCH (20:00)
[2021-09-06] MEDS: PEPCID TAB 20 MG PO SCH (20:17)
[2021-09-06] MEDS: NEURONTIN CAP 100 MG PO SCH (20:18)
[2021-09-07] MEDS: ASCORBIC ACID INJ MULTI-DOSE VIAL 1,500 MG in NS 50 ML IV 50 ML IV SCH ×4 (03:20→21:45)
[2021-09-07 05:30] LABS: BASOPHILS % (AUTO) 0.2 % (0.2-1.0); HEMATOCRIT 28.5 % (36.0-47.0); HEMOGLOBIN 9.5 g/dL (12.0-16.0); LYMPHOCYTES # (AUTO) 0.5 X10^3/uL (1.3-2.9); LYMPHOCYTES % (AUTO) 10.5 % (21.0-51.0); MEAN CORPUSCULAR HEMOGLOBIN 23.4 pg (27.0-34.0); MEAN CORPUSCULAR HGB CONC 33.4 g/dL (33.0-35.0); MEAN PLATELET VOLUME 7.7 fL (7.4-11.0); MONOCYTES # (AUTO) 0.3 x10^3/uL (0.3-0.8); MONOCYTES % (AUTO) 5.9 % (0.0-13.0); NEUTROPHILS # (AUTO) 3.6 x10^3/uL (2.2-4.8); NEUTROPHILS % (AUTO) 83.4 % (42.0-75.0); RED BLOOD COUNT 4.07 X10^6/uL (3.5-5.4); RED CELL DISTRIBUTION WIDTH 19.6 % (11.6-16.5); WHITE BLOOD COUNT 4.3 X10^3/uL (3.6-10.0)
[2021-09-07 05:39] LABS: ABG ALLEN TEST POS; ABG BASE EXCESS 1.5 mmol/L (-2.0-2.0); ABG HCO3 24.6 mmol/L (22-26)
[2021-09-07] MEDS: SOLU-Medrol 40 MG VIAL IVP SCH ×3 (05:39→21:44)
[2021-09-07] MEDS: NovoLIN R (or HumuLIN R) SUBCUT PRN ×4 (05:40→22:07)
[2021-09-07 05:49] LABS: ALANINE AMINOTRANSFERASE 55 Units/L (12-78); ALBUMIN 2.6 g/dL (3.4-5.0); ALKALINE PHOSPHATASE 86 Units/L (46-116); ASPARTATE AMINO TRANSFERASE 40 Units/L (15-37); BLOOD UREA NITROGEN 38 mg/dL (7-18); CALCIUM 8.9 mg/dL (8.5-10.1); CARBON DIOXIDE 23.1 mmol/L (21-32); CHLORIDE 106 mmol/L (98-107); COR NA(FOR HYPERGLY) 147 mmol/L (136-145); CREATININE 0.97 mg/dL (0.55-1.02); MAGNESIUM 2.2 mg/dL (1.7-2.9); SODIUM 142 mmol/L (136-145); TOTAL PROTEIN 6.9 g/dL (6.4-8.2); eGFR NON BLACK RACES 60 (>60)
[2021-09-07] MEDS: XOPENEX 1.25 MG/3 ML NEBULE NEB PRN ×2 (06:00→13:35)
[2021-09-07 06:13] LABS: PLATELET MORPHOLOGY COMMENT NORMAL (NORMAL)
[2021-09-07 06:14] LABS: OVALOCYTES PRESENT
[2021-09-07] MEDS: CRESTOR TAB 10 MG PO SCH (08:20)
[2021-09-07] MEDS: K-DUR TAB 20 MEQ PO SCH ×2 (08:20→21:46)
[2021-09-07] MEDS: VITAMIN A PO SCH (08:20)
[2021-09-07] MEDS: SYNTHROID 88 mcg TAB PO SCH (08:20)
[2021-09-07] MEDS: LOPRESSOR TAB 25 MG PO SCH ×2 (08:20→21:46)
[2021-09-07] MEDS: VITAMIN D3 125 mcg (5,000 UNITS) PO SCH (08:20)
[2021-09-07] MEDS: LEVAQUIN PREMIX IV 250 MG 250 MG/50 ML BAG IV SCH (08:20)
[2021-09-07] MEDS: FERROUS GLUCONATE PO SCH ×2 (08:20→21:46)
[2021-09-07] MEDS: ALBUMIN HUMAN 25%- 100 ML 100 ML IV SCH (08:20)
[2021-09-07] MEDS: BROVANA IN SCH ×2 (08:25→20:55)
[2021-09-07] MEDS: PULMICORT NEB TX 0.5 MG NEB SCH ×2 (08:25→20:55)
[2021-09-07] MEDS: LOVENOX INJ 30 MG SYR SC SCH (08:30)
[2021-09-07] MEDS: MERREM VIAL 1 G in NS 100 ML IV + SPIKE MINIBAG* 100 ML IV SCH ×2 (09:30→22:40)
--- NOTE | 2021-09-07 10:11 | RAD ---
HISTORYCOVID, PNEUMONIASTUDYCHEST x-ray, 1 VIEWCOMPARISONX-ray 09/06/2021FINDINGSPeripheral lung infiltrates are similar to prior study. Findings are consistent with COVID-19 pneumonia. Heart is normal in size. No pneumothorax or pleural effusion is seen.IMPRESSIONPersistent moderate to prominent bilateral COVID 19 pneumonia.Electronically signed by: Christopher Montoya (Sep 07, 2021 10:10:51)
[2021-09-07] MEDS: DIFLUCAN 100 MG IV (MIX by PHARMACY)* 100 MG/50 ML BAG IV SCH (12:20)
[2021-09-07] MEDS: NS + KCL 20 MEQ/L 1,000 ML IV SCH (12:26)
[2021-09-07] MEDS ORDERED: LANTUS SC ONE ×2 (16:17→16:23)
--- NOTE | 2021-09-07 18:46 | PCM.PROG ---
Progress Note Progress Note for Day of Date of Exam: 09/07/21 Subjective Subjective: Patient is doing well this am she reports. She sat in chair yesterday for about 1.5 hours. She is breathing easier but is easily winded moving about. Today her O2 was dropped to 3 L NC and she has been tolerating that with sats >90%. Will plan on discharge in about 2 days if patient cont inues to improve. CRP is down to 10 now and CXR remains unchanged with bilateral covid pneumonia. Past Medical Family Social History Past Med/Fam/Surg Hx: No changes since H&P Allergies: Allergies No Known Drug Allergies Allergy (Verified 08/25/21 14:20) Review of Systems ROS: No change since H&P Vital Signs and I&O's Vital Signs: Temperature 96.6 F Pulse Rate 81 Respiratory Rate 30 Blood Pressure 155/74 O2 Sat by Pulse Oximetry 89 Intake and Output: Intake & Output 09/05/21 09/06/21 09/07/21 09/08/21 11:59 11:59 11:59 11:59 Intake Total 3232 / 3232 3229 / 3229 3939 / 3939 Output Total 850 / 850 125 / 125 5 / 5 Balance 2382 / 2382 3104 / 3104 3934 / 3934 Physical Exam Oriented: Normal Eyes: Normal Ear: Normal Nose: Normal Throat: Normal Respiratory: Generalized and Diminished Cardiovascular: Normal and Systolic : Normal Auscultation: Bowel Sounds: Normal Tenderness: Normal Skin: Normal Musculoskeletal: Normal Psychiatric: Normal Mood Description: Calm Affect: Normal Speech Pattern: Clear Laboratory and Diagnostics Result Diagrams: 09/07/21 04:56 09/07/21 15:49 Labs: 08/26/21 04:25 Urine,Clean Catch Urine Culture - Final 08/25/21 22:39 Blood Blood Culture - Final 08/25/21 22:32 Blood Blood Culture - Final Laboratory WBC 4.3 X10^3/uL (3.6-10.0) 09/07/21 04:56 RBC 4.07 X10^6/uL (3.5-5.4) 09/07/21 04:56 Hgb 9.5 g/dL (12.0-16.0) L 09/07/21 04:56 Hct 28.5 % (36.0-47.0) L 09/07/21 04:56 MCV 70.0 fL (80.0-100.0) L 09/07/21 04:56 MCH 23.4 pg (27.0-34.0) L 09/07/21 04:56 MCHC 33.4 g/dL (33.0-35.0) 09/07/21 04:56 RDW 19.6 % (11.6-16.5) H 09/07/21 04:56 Plt Count 352 X10^3/uL (150.0-450.0) 09/07/21 04:56 Plt Count Comment Adequate (ADEQUATE) 09/07/21 04:56 MPV 7.7 fL (7.4-11.0) 09/07/21 04:56 Neut % (Auto) 83.4 % (42.0-75.0) H 09/07/21 04:56 Lymph % (Auto) 10.5 % (21.0-51.0) L 09/07/21 04:56 [place] % (Auto) 5.9 % (0.0-13.0) 09/07/21 04:56 Eos % (Auto) 0.0 % (0.9-2.9) L 09/07/21 04:56 Baso % (Auto) 0.2 % (0.2-1.0) 09/07/21 04:56 Neut # (Auto) 3.6 x10^3/uL (2.2-4.8) 09/07/21 04:56 Lymph # (Auto) 0.5 X10^3/uL (1.3-2.9) L 09/07/21 04:56 [place] # (Auto) 0.3 x10^3/uL (0.3-0.8) 09/07/21 04:56 Eos # (Auto) 0.0 x10^3/uL (0.0-0.2) 09/07/21 04:56 Baso # (Auto) 0.0 X10^3/uL (0.0-0.1) 09/07/21 04:56 Absolute Nucleated RBC 0.1 /100WBC 09/07/21 04:56 Total Counted 100 08/31/21 04:27 Neutrophils % (Manual) 88 % (39-76) H 08/31/21 04:27 Band Neutrophils % 1 % (0-10) 08/31/21 04:27 Lymphocytes % (Manual) 10 % (13-43) L 08/31/21 04:27 Monocytes % (Manual) 1 % (4-9) L 08/31/21 04:27 Plt Morphology Comment Normal (NORMAL) 09/07/21 04:56 RBC Morphology Abnormal (NORMAL) A 09/07/21 04:56 Hypochromasia Slight A 09/06/21 04:46 Anisocytosis Slight A 09/04/21 04:40 Microcytosis 1+ A 09/06/21 04:46 Ovalocytes Present 09/07/21 04:56 [place] Cells Present 09/06/21 04:46 Acanthocytes (Spur) Present 09/07/21 04:56 D-Dimer 0.61 ug/ml (0.0-0.57) H* 08/25/21 13:19 Sample Site Lr 09/07/21 05:00 ABG pH 7.480 (7.35-7.45) H 09/07/21 05:00 ABG pCO2 33.0 mmHg (35.0-45.0) L 09/07/21 05:00 ABG pO2 52.0 mmHg (80.0-100.0) L 09/07/21 05:00 ABG HCO3 24.6 mmol/L (22-26) 09/07/21 05:00 ABG O2 Saturation 89.0 % (90-100) L 09/07/21 05:00 ABG Base Excess 1.5 mmol/L (-2.0-2.0) 09/07/21 05:00 Arjun Test Pos 09/07/21 05:00 A-a Gradient 163.0 mmHg 09/07/21 05:00 FiO2 36.0 09/07/21 05:00 Blood Gas Comments Dolores well sw 09/07/21 05:00 Sodium 142 mmol/L (136-145) 09/07/21 04:56 Corrected Sodium 147 mmol/L (136-145) H 09/07/21 04:56 Potassium 3.6 mmol/L (3.5-5.1) 09/07/21 04:56 Chloride 106 mmol/L (98-107) 09/07/21 04:56 Carbon Dioxide 23.1 mmol/L (21-32) 09/07/21 04:56 BUN 38 mg/dL (7-18) H 09/07/21 04:56 Creatinine 0.97 mg/dL (0.55-1.02) 09/07/21 04:56 Est GFR (MDRD) Af Amer > 60 (>60) 09/07/21 04:56 Est GFR (MDRD) Non-Af 60 (>60) 09/07/21 04:56 Glucose 499 mg/dL (65-99) H 09/07/21 15:49 POC Glucose (mg/dL) 485 mg/dL (65-99) H 09/07/21 15:23 Calcium 8.9 mg/dL (8.5-10.1) 09/07/21 04:56 Corrected Calcium 10.0 mg/dL (8.5-10.1) 09/07/21 04:56 Magnesium 2.2 mg/dL (1.7-2.9) 09/07/21 04:56 Total Bilirubin 0.40 mg/dL (0.2-1.0) 09/07/21 04:56 AST 40 Units/L (15-37) H 09/07/21 04:56 ALT 55 Units/L (12-78) 09/07/21 04:56 Alkaline Phosphatase 86 Units/L (46-116) 09/07/21 04:56 C-Reactive Protein 10.40 mg/L (0-3.0) H 09/07/21 04:56 B-Natriuretic Peptide 74.0 pg/mL (0-79) 09/07/21 04:56 Total Protein 6.9 g/dL (6.4-8.2) 09/07/21 04:56 Albumin 2.6 g/dL (3.4-5.0) L 09/07/21 04:56 Globulin 4.3 g/dL (2.5-4.5) 09/07/21 04:56 Albumin/Globulin Ratio 0.6 Ratio (1.1-2.1) L 09/07/21 04:56 Specimen Type Clean catch urine 08/26/21 04:25 Urine Color Yellow (YELLOW) 08/26/21 04:25 Urine Appearance Slightly hazy (CLEAR) 08/26/21 04:25 Urine pH 5.0 (5.0 - 8.0) 08/26/21 04:25 Ur Specific [place] 1.020 (1.000-1.030) 08/26/21 04:25 Urine Protein 3+ (NEGATIVE) 08/26/21 04:25 Urine Glucose (UA) Negative (NEGATIVE) 08/26/21 04:25 Urine Ketones Negative (NEGATIVE) 08/26/21 04:25 Urine Occult Blood Negative (NEGATIVE) 08/26/21 04:25 Urine Nitrite Negative (NEGATIVE) 08/26/21 04:25 Urine Bilirubin Negative (NEGATIVE) 08/26/21 04:25 Urine Urobilinogen Normal (NORMAL) 08/26/21 04:25 Ur Leukocyte Esterase Negative (NEGATIVE) 08/26/21 04:25 Urine RBC 0-2 /HPF (0-3) 08/26/21 04:25 Urine WBC 3-5 /HPF (0-5) 08/26/21 04:25 Ur Squamous Epith Cells Rare /HPF (NEGATIVE) 08/26/21 04:25 Amorphous Sediment 1+ /HPF (NEGATIVE) 08/26/21 04:25 Urine Bacteria 3+ /HPF (NEGATIVE) 08/26/21 04:25 Granular Casts Few /LPF (NEGATIVE) 08/26/21 04:25 Coarse Granular Casts Few /HPF (NEGATIVE) 08/25/21 20:00 Urine Mucus Few /HPF (NEGATIVE) 08/25/21 20:00 Ur Culture Indicated? Yes/culture set up 08/26/21 04:25 Miscellaneous Test Procalcitonin 08/30/21 13:34 Radiology Reviewed: Yes Plan (1) Pneumonia due to COVID-19 virus: Status: Acute Plan: Continue Nebs and Solumedrol as well as IV Meropenem. (2) UTI (urinary tract infection): Status: Acute Qualifiers: Urinary tract infection type: acute cystitis Hematuria presence: without hematuria Qualified Code(s): N30.00 - Acute cystitis without hematuria (3) Thrombocytopenia: Status: Acute (4) Hypothyroidism: Status: Chronic Plan: resume levothyroxine (5) Dyslipidemia: Status: Chronic (6) HTN (hypertension): Status: Chronic Qualifiers: Hypertension type: unspecified Qualified Code(s): I10 - Essential (primary) hypertension (7) DM2 (diabetes mellitus, type 2): Status: Chronic Qualifiers: Diabetes mellitus joint terminal attack controller insulin use: with fpc use Diabetes mellitus complication status: with hyperglycemia Qualified Code(s): E11.65 - Type 2 diabetes mellitus with hyperglycemia; Z79.4 - terminal operator (current) use of insulin Plan: Reg insulin sliding scale (8) CKD (chronic kidney disease) stage 4, GFR 15-29 ml/min: Status: Chronic Plan: IV hydration D/C Metformin
[2021-09-07] MEDS ORDERED: SNACK - Diabetic Appropriate PO SCH (20:00)
[2021-09-07] MEDS: SNACK - Diabetic Appropriate PO SCH (21:00)
[2021-09-07] MEDS: PEPCID TAB 20 MG PO SCH (21:45)
[2021-09-07] MEDS: NEURONTIN CAP 100 MG PO SCH (21:45)
[2021-09-07] MEDS: LANTUS SC SCH (22:07)
[2021-09-08] MEDS: ASCORBIC ACID INJ MULTI-DOSE VIAL 1,500 MG in NS 50 ML IV 50 ML IV SCH (02:31)
[2021-09-08] MEDS: SOLU-Medrol 40 MG VIAL IVP SCH (05:29)
[2021-09-08 05:36] LABS: ABG BASE EXCESS 0.9 mmol/L (-2.0-2.0); ABG HCO3 23.8 mmol/L (22-26)
[2021-09-08 05:38] LABS: ABG ALLEN TEST YES
[2021-09-08] MEDS: NovoLIN R (or HumuLIN R) SUBCUT PRN ×2 (05:38→12:24)
[2021-09-08 06:17] LABS: ALANINE AMINOTRANSFERASE 55 Units/L (12-78); ALBUMIN 2.6 g/dL (3.4-5.0); ALKALINE PHOSPHATASE 82 Units/L (46-116); ASPARTATE AMINO TRANSFERASE 33 Units/L (15-37); BLOOD UREA NITROGEN 41 mg/dL (7-18); CALCIUM 8.9 mg/dL (8.5-10.1); CARBON DIOXIDE 23.7 mmol/L (21-32); CHLORIDE 107 mmol/L (98-107); COR NA(FOR HYPERGLY) 147 mmol/L (136-145); CREATININE 0.91 mg/dL (0.55-1.02); SODIUM 143 mmol/L (136-145); TOTAL PROTEIN 6.8 g/dL (6.4-8.2); eGFR NON BLACK RACES > 60 (>60)
[2021-09-08 06:30] LABS: BASOPHILS % (AUTO) 0.1 % (0.2-1.0); HEMATOCRIT 30.2 % (36.0-47.0); HEMOGLOBIN 10.2 g/dL (12.0-16.0); LYMPHOCYTES # (AUTO) 0.4 X10^3/uL (1.3-2.9); LYMPHOCYTES % (AUTO) 8.1 % (21.0-51.0); MEAN CORPUSCULAR HEMOGLOBIN 23.9 pg (27.0-34.0); MEAN CORPUSCULAR HGB CONC 33.6 g/dL (33.0-35.0); MEAN CORPUSCULAR VOLUME 71.3 fL (80.0-100.0); MONOCYTES # (AUTO) 0.3 x10^3/uL (0.3-0.8); MONOCYTES % (AUTO) 5.1 % (0.0-13.0); NEUTROPHILS # (AUTO) 4.7 x10^3/uL (2.2-4.8); NEUTROPHILS % (AUTO) 86.7 % (42.0-75.0); RED BLOOD COUNT 4.24 X10^6/uL (3.5-5.4); RED CELL DISTRIBUTION WIDTH 19.8 % (11.6-16.5); WHITE BLOOD COUNT 5.5 X10^3/uL (3.6-10.0)
[2021-09-08 08:01] LABS: BAND NEUTROPHILS % 1 % (0-10); MICROCYTOSIS SLIGHT; OVALOCYTES PRESENT; PLATELET MORPHOLOGY COMMENT NORMAL (NORMAL)
--- NOTE | 2021-09-08 08:05 | RAD ---
HISTORYPNEUMONIA, SOBSTUDYCHEST x-ray, 1 VIEWCOMPARISONX-ray 09/07/2021FINDINGSPersistent bilateral lung infiltrates are likely due to COVID-19 pneumonia or post infectious changes. No pneumothorax or pleural effusion. Heart is normal in size.IMPRESSIONAppearance of the chest is unchanged.Electronically signed by: Christopher Montoya (Sep 08, 2021 08:03:59)
[2021-09-08] MEDS: BROVANA IN SCH (08:36)
[2021-09-08] MEDS: PULMICORT NEB TX 0.5 MG NEB SCH (08:36)
[2021-09-08] MEDS: CRESTOR TAB 10 MG PO SCH (08:53)
[2021-09-08] MEDS: LEVAQUIN PREMIX IV 250 MG 250 MG/50 ML BAG IV SCH (08:54)
[2021-09-08] MEDS: K-DUR TAB 20 MEQ PO SCH (08:54)
[2021-09-08] MEDS: FERROUS GLUCONATE PO SCH (08:54)
[2021-09-08] MEDS: LANTUS SC SCH (08:54)
[2021-09-08] MEDS: MERREM VIAL 1 G in NS 100 ML IV + SPIKE MINIBAG* 100 ML IV SCH (08:55)
[2021-09-08] MEDS: LOPRESSOR TAB 25 MG PO SCH (08:55)
[2021-09-08] MEDS: LOVENOX INJ 30 MG SYR SC SCH (08:55)
[2021-09-08] MEDS: SYNTHROID 88 mcg TAB PO SCH (08:55)
[2021-09-08] MEDS: VITAMIN D3 125 mcg (5,000 UNITS) PO SCH (08:56)
[2021-09-08] MEDS: VITAMIN A PO SCH (08:56)
[2021-09-08] MEDS ORDERED: VITAMIN C PO SCH (09:00)
[2021-09-08] MEDS: ALBUMIN HUMAN 25%- 100 ML 100 ML IV SCH (10:49)
[2021-09-08] MEDS: NS + KCL 20 MEQ/L 1,000 ML IV SCH (10:50)
[2021-09-08] MEDS: DIFLUCAN 100 MG IV (MIX by PHARMACY)* 100 MG/50 ML BAG IV SCH (10:50)
[2021-09-08 12:26] VITALS: BP 152/70
--- NOTE | 2021-10-10 12:51 | PCM.DCPLAN ---
DISCHARGE SUMMARY Admission Date Date of Admission: 08/25/21 Discharge Date Discharge Date: 09/08/21 Admission Diagnoses (1) Pneumonia due to COVID-19 virus: Status: Acute (2) UTI (urinary tract infection): Status: Acute (3) Thrombocytopenia: Status: Acute (4) Hypothyroidism: Status: Chronic (5) Dyslipidemia: Status: Chronic (6) HTN (hypertension): Status: Chronic (7) DM2 (diabetes mellitus, type 2): Status: Chronic Discharge Diagnoses Discharge Diagnosis: 1. Pneumonia due to Covid-19- resolved. 2. Hypoxia- nearly resolved 3. UTI-resolved 4. Thrombocytopenia- resolved 5. HTN- stable 6. Hypothyroidism 7. DM2- stable 8. Dyslipidemia Discharge Medications Discharge Medications: Home Medication List albuterol 90 mcg INHALATION Q4H PRN 08/25/21 [History] dulaglutide [Trulicity] 1.5 mg SUBCUT WEEKLY 08/25/21 [History] epoetin [place]ah [Procrit] 1 unit SUBCUT Q14D 08/25/21 [History] ferrous fumarate [Ferrocite] 324 mg PO BID 08/25/21 [History] levothyroxine 88 mcg PO DAILY 08/25/21 [History] meclizine 25 mg PO DAILY PRN 08/25/21 [History] metformin 1,000 mg PO BID 08/25/21 [History] metoprolol tartrate 25 mg PO BID 08/25/21 [History] potassium chloride 20 meq PO BID 08/25/21 [History] rosuvastatin 40 mg PO DAILY 08/25/21 [History] triamterene-hydrochlorothiazid 1 tab PO DAILY 08/25/21 [History] albuterol sulfate 1.25 mg INHALATION QID #120 ml 09/08/21 [Rx] budesonide-formoterol [Symbicort] 2 puff INHALATION BID #1 g 09/08/21 [Rx] methylprednisolone [Medrol (Anant)] 4 mg PO DIRECTED #10 ea 09/08/21 [Rx] Prescriptions: albuterol sulfate BRUCE LÓPEZ budesonide-formoterol [Symbicort] BRUCE LÓPEZ methylprednisolone [Medrol (Anant)] BRUCE LÓPEZ Hospital Course Vital Signs: Temperature 97.5 F Pulse Rate 70 Respiratory Rate 22 Blood Pressure 152/70 O2 Sat by Pulse Oximetry 97 Latest Lab Results: Laboratory Last Values WBC 5.5 X10^3/uL (3.6-10.0) 09/08/21 04:21 RBC 4.24 X10^6/uL (3.5-5.4) 09/08/21 04:21 Hgb 10.2 g/dL (12.0-16.0) L 09/08/21 04:21 Hct 30.2 % (36.0-47.0) L 09/08/21 04:21 MCV 71.3 fL (80.0-100.0) L 09/08/21 04:21 MCH 23.9 pg (27.0-34.0) L 09/08/21 04:21 MCHC 33.6 g/dL (33.0-35.0) 09/08/21 04:21 RDW 19.8 % (11.6-16.5) H 09/08/21 04:21 Plt Count 320 X10^3/uL (150.0-450.0) 09/08/21 04:21 Plt Count Comment Adequate (ADEQUATE) 09/08/21 04:21 MPV 8.0 fL (7.4-11.0) 09/08/21 04:21 Neut % (Auto) 86.7 % (42.0-75.0) H 09/08/21 04:21 Lymph % (Auto) 8.1 % (21.0-51.0) L 09/08/21 04:21 [place] % (Auto) 5.1 % (0.0-13.0) 09/08/21 04:21 Eos % (Auto) 0.0 % (0.9-2.9) L 09/08/21 04:21 Baso % (Auto) 0.1 % (0.2-1.0) L 09/08/21 04:21 Neut # (Auto) 4.7 x10^3/uL (2.2-4.8) 09/08/21 04:21 Lymph # (Auto) 0.4 X10^3/uL (1.3-2.9) L 09/08/21 04:21 [place] # (Auto) 0.3 x10^3/uL (0.3-0.8) 09/08/21 04:21 Eos # (Auto) 0.0 x10^3/uL (0.0-0.2) 09/08/21 04:21 Baso # (Auto) 0.0 X10^3/uL (0.0-0.1) 09/08/21 04:21 Absolute Nucleated RBC 0.1 /100WBC 09/08/21 04:21 Total Counted 100 09/08/21 04:21 Neutrophils % (Manual) 84 % (39-76) H 09/08/21 04:21 Band Neutrophils % 1 % (0-10) 09/08/21 04:21 Lymphocytes % (Manual) 9 % (13-43) L 09/08/21 04:21 Monocytes % (Manual) 6 % (4-9) 09/08/21 04:21 Plt Morphology Comment Normal (NORMAL) 09/08/21 04:21 RBC Morphology Abnormal (NORMAL) A 09/08/21 04:21 Hypochromasia Slight A 09/06/21 04:46 Anisocytosis Slight A 09/04/21 04:40 Microcytosis Slight A 09/08/21 04:21 Ovalocytes Present 09/08/21 04:21 [place] Cells Present 09/06/21 04:46 Acanthocytes (Spur) Present 09/07/21 04:56 D-Dimer 0.61 ug/ml (0.0-0.57) H* 08/25/21 13:19 Sample Site Rr 09/08/21 05:17 ABG pH 7.480 (7.35-7.45) H 09/08/21 05:17 ABG pCO2 32.0 mmHg (35.0-45.0) L 09/08/21 05:17 ABG pO2 49.0 mmHg (80.0-100.0) L* 09/08/21 05:17 ABG HCO3 23.8 mmol/L (22-26) 09/08/21 05:17 ABG O2 Saturation 87.0 % (90-100) L 09/08/21 05:17 ABG Base Excess 0.9 mmol/L (-2.0-2.0) 09/08/21 05:17 Arjun Test Yes 09/08/21 05:17 A-a Gradient 61.0 mmHg 09/08/21 05:17 FiO2 21.0 09/08/21 05:17 Blood Gas Comments Dolores well 09/08/21 05:17 Sodium 143 mmol/L (136-145) 09/08/21 04:21 Corrected Sodium 147 mmol/L (136-145) H 09/08/21 04:21 Potassium 4.0 mmol/L (3.5-5.1) 09/08/21 04:21 Chloride 107 mmol/L (98-107) 09/08/21 04:21 Carbon Dioxide 23.7 mmol/L (21-32) 09/08/21 04:21 BUN 41 mg/dL (7-18) H 09/08/21 04:21 Creatinine 0.91 mg/dL (0.55-1.02) 09/08/21 04:21 Est GFR (MDRD) Af Amer > 60 (>60) 09/08/21 04:21 Est GFR (MDRD) Non-Af > 60 (>60) 09/08/21 04:21 Glucose 282 mg/dL (65-99) H 09/08/21 04:21 POC Glucose (mg/dL) 298 mg/dL (65-99) H 09/08/21 12:13 Calcium 8.9 mg/dL (8.5-10.1) 09/08/21 04:21 Corrected Calcium 10.0 mg/dL (8.5-10.1) 09/08/21 04:21 Magnesium 2.2 mg/dL (1.7-2.9) 09/07/21 04:56 Total Bilirubin 0.40 mg/dL (0.2-1.0) 09/08/21 04:21 AST 33 Units/L (15-37) 09/08/21 04:21 ALT 55 Units/L (12-78) 09/08/21 04:21 Alkaline Phosphatase 82 Units/L (46-116) 09/08/21 04:21 C-Reactive Protein 10.40 mg/L (0-3.0) H 09/07/21 04:56 B-Natriuretic Peptide 74.0 pg/mL (0-79) 09/07/21 04:56 Total Protein 6.8 g/dL (6.4-8.2) 09/08/21 04:21 Albumin 2.6 g/dL (3.4-5.0) L 09/08/21 04:21 Globulin 4.2 g/dL (2.5-4.5) 09/08/21 04:21 Albumin/Globulin Ratio 0.6 Ratio (1.1-2.1) L 09/08/21 04:21 Specimen Type Clean catch urine 08/26/21 04:25 Urine Color Yellow (YELLOW) 08/26/21 04:25 Urine Appearance Slightly hazy (CLEAR) 08/26/21 04:25 Urine pH 5.0 (5.0 - 8.0) 08/26/21 04:25 Ur Specific [place] 1.020 (1.000-1.030) 08/26/21 04:25 Urine Protein 3+ (NEGATIVE) 08/26/21 04:25 Urine Glucose (UA) Negative (NEGATIVE) 08/26/21 04:25 Urine Ketones Negative (NEGATIVE) 08/26/21 04:25 Urine Occult Blood Negative (NEGATIVE) 08/26/21 04:25 Urine Nitrite Negative (NEGATIVE) 08/26/21 04:25 Urine Bilirubin Negative (NEGATIVE) 08/26/21 04:25 Urine Urobilinogen Normal (NORMAL) 08/26/21 04:25 Ur Leukocyte Esterase Negative (NEGATIVE) 08/26/21 04:25 Urine RBC 0-2 /HPF (0-3) 08/26/21 04:25 Urine WBC 3-5 /HPF (0-5) 08/26/21 04:25 Ur Squamous Epith Cells Rare /HPF (NEGATIVE) 08/26/21 04:25 Amorphous Sediment 1+ /HPF (NEGATIVE) 08/26/21 04:25 Urine Bacteria 3+ /HPF (NEGATIVE) 08/26/21 04:25 Granular Casts Few /LPF (NEGATIVE) 08/26/21 04:25 Coarse Granular Casts Few /HPF (NEGATIVE) 08/25/21 20:00 Urine Mucus Few /HPF (NEGATIVE) 08/25/21 20:00 Ur Culture Indicated? Yes/culture set up 08/26/21 04:25 Miscellaneous Test Procalcitonin 08/30/21 13:34 Hospital Course: This patient is a 76 year old white female who was directed by [facility] for nurse practitioner Dedrick Paiz for an 11-day history of Covid-19 who was not getting any better. she reported an increase in Progressive weakness and shortness of breath over the last two days prior to coming to the hospital. Her oxygen saturation was 95% on 2 L of O2 via nasal cannula. She was also found to be dehydrated with a creatinine of 2.38. She was treated with IV fluid and started on the covid-19 protocol which consists of inhaled Albuterol and Budesonide. She was given IV Azithromycin and Doxycycline as well. Over the next couple of days she was feeling better and her IV antibiotics were changed to IV Zosyn. She continued to have an O2 sat of 95% on 2 L NC. Her creatinine has come down to 1.86 on the third day. Over the next couple days to patients O2 set started trending down some and at that time we changed her to heated high flow. She responded well to this as Her O2 saturation came up. Only sixth and seventh day The patient's condition slowed improving. Respiratory was trying to ween down her oxygen but the patient did not tolerate it. Levaquin was added on the Day for better coverage. The patient's chest x-rays of not readily improve daily which is consistent with Covid-19 infection from the [place] varient. The patient's family was concerned about her slowly improving condition recommended a consult with a iridologist. We consulted iridologist, Dr Awan who recommended a CT chest rule out PE and to start The patient on BiPAP. The CT was done which did not show any PE but it did show a ground glass appearance on the CT scan. The patient was started on BiPAP but the patient however she did not tolerate this very well as it seemed very uncomfortable to her. The patient has also developed some hypernatremia and hypokalemia which were treated with changing her IV fluid to D5W and placing The patient on a potassium replacement protocol. For the patients anemia of chronic kidney disease you'd given Sub-Q procrit. The patient also received IV albumin for hypoalbunemia. By September 02 patient was feeling better overall she reported. I also started checking her CRP levels which were elevated. Because of this I started The patient on the antibiotic Meropenem. After this antibiotic was started her CRP levels decrease daily. The patient slowly started to improve again which took her just over a week. During this time we slowly weaned her oxygen down and continued her IV Solu-Medrol and antibiotics. By the August, The patient has been sitting up in her chair some during the day and her O2 stat is staying greater than 90 now on 3 L of supplemental oxygen via nasal cannula. The patient CRP was also down at 10 on this day. on the following day to put you was feeling much better and was agreeable to going home. The patient will be discharged home in stable condition. Will we will be arranging respiratory Outpatient Treatment as well. Instructions Instructions: Type 2 Diabetes Mellitus, Diagnosis, Adult Anemia How to Use an Incentive Spirometer Home Oxygen Use, Adult COVID-19 Frequently Asked Questions Prone Position Therapy 10 Things You Can Do to Manage Your COVID-19 Symptoms at Home - CDC (01/28/2020) Urinary Tract Infection, Adult, [id number] Chronic Kidney Disease, Adult, [id number] How to Use a Nebulizer, Adult Hypertension, Adult, [id number] Forms: EUA Consent Precautions for COVID19 [facility] Social Distancing
== END 2021-09-08 13:31 | disposition home health service (06) | DRG 177 ==
LOC: ICU
PROVIDERS: ADMIT Family Medicine; ATTEND Family Medicine
DX: J12.82 Pneumonia due to coronavirus disease 2019; R26.89 Other abnormalities of gait and mobility; D63.1 Anemia in chronic kidney disease; R79.1 Abnormal coagulation profile; E87.3 Alkalosis; N18.4 Chronic kidney disease, stage 4 (severe); E03.8 Other specified hypothyroidism; J96.01 Acute respiratory failure with hypoxia; E87.0 Hyperosmolality and hypernatremia; R79.89 Other specified abnormal findings of blood chemistry; I12.9 Hypertensive chronic kidney disease with stage 1 through stage 4 chronic kidney disease, or unspecified chronic kidney disease; N30.00 Acute cystitis without hematuria; E78.2 Mixed hyperlipidemia; Z79.4 Long term (current) use of insulin; Z66 Do not resuscitate; B95.1 Streptococcus, group B, as the cause of diseases classified elsewhere; E88.09 Other disorders of plasma-protein metabolism, not elsewhere classified; E11.65 Type 2 diabetes mellitus with hyperglycemia; R79.82 Elevated C-reactive protein (CRP); D69.6 Thrombocytopenia, unspecified; E87.6 Hypokalemia; U07.1 COVID-19

== ENCOUNTER 2022-08-22 09:36 | Observation (INO) ==
[2022-08-22 09:41] VITALS: BMI 25.4
--- NOTE | 2022-08-22 09:50 | DR.GENAD ---
HPI Time Seen Time Seen by Provider: 08/22/22 09:49 PCP Primary Care Physician: JENNA THOMAS Complaint/Symptoms Chief Complaint Doctors Comments: 77 y/o female presents for evaluation. Has been feeling weak, fatigued over the past 2 weeks. Denies recent illness. No fever, cough, sore throat, nausea, vomiting, diarrhea, urinary changes. Has chronic nasal congestion, urinates frequently. No pain. + h/o anemia, received iron transfusion 2 weeks ago. No change in dark stools. on iron. Chief Complaint:: PT. C/O FATIGUE AND GENERALIZED WEAKNESS X A FEW WEEKS. PT. HAS A HX. OF ANEMIA. PT. RECEIVED TWO IRON INFUSIONS ABOUT 2 WEEKS AGO IN [place] AT THE [facility]. PT. SEEN PCP THIS AM. COVID-19 Coronavirus risk:travel/contact w/high risk person: No Has patient experienced Coronavirus symptoms: No Nurses notes reviewed Nurses Notes Review: Yes Source History Provided: Patient Mode of Arrival Mode of Arrival: Ambulatory Timing Onset of Chief Complaint: 08/08/22 PMH PMH Past Medical History: Yes Past Medical History: Anemia, Diabetes, Dyslipidemia, Hypertension, Hypothyroidism and Renal Disease Past Surgical History: Yes Surgical History: Other Past Surgical History Comment: RIGHT HIP, RIGHT KNEE Family History History of Family Medical Conditions: Yes Family Medical History: Diabetes Mellitus, ID, Coronary Artery Disease, Heart Failure and Hypertension Social History Does patient currently use any type of tobacco product: No Have you used tobacco products in the last 12 months: No Type of Tobacco Use: None Does any household member use tobacco: No Alcohol Use: None Do you use any recreational Drugs:: No Lives With: Alone Lives Where: Home Travel Risk Coronavirus risk:travel/contact w/high risk person: No Has patient experienced Coronavirus symptoms: No Infectious screening In the last 2 months have you had wt loss of >10#?: NO Have you had fever, night sweats or hemotysis?: No Have you traveled outside the country in the last 6 months?: No Isolation: Standard ROS Review of Systems Constitutional: Malaise, Weakness and Fatigue Eyes: No Symptoms Reported ENTM: No Symptoms Reported Respiratoy: No Symptoms Reported Cardiovascular: No Symptoms Reported Gastrointestinal/Abdominal: No Symptoms Reported Genitourinary: No Symptoms Reported Neurological: No Symptoms Reported Musculoskeletal: No Symptoms Reported Integumentary: No Symptoms Reported Hematologic/Lymphatic: No Symptoms Reported Psychiatric: No Symptoms Reported All Other Systems: Reviewed and Negative PE Vital Signs Vitals: Temperature 97.8 F Pulse Rate 107 Respiratory Rate 17 Blood Pressure 143/67 O2 Sat by Pulse Oximetry 96 General General Appearance: Alert and In No Apparent Distress Eyes Eye exam: PERRL and EOMI ENT ENT Exam: Normal Oropharynx and Mucous Membranes Moist Neck Neck Exam: Normal Inspection and Full ROM Respiratory Respiratory Exam: Normal Lung Sounds Bilat; negative Accessory Muscle Use or Re spiratory Distress Cardiovascular Cardiovascular Exam: Regular Rate, Normal Rhythm and Normal Heart Sounds Abdominal Exam Abdominal Exam: Normal Bowel Sounds and Soft; negative Tenderness Extremities Extremities Exam: Normal Inspection Neurologic Neurological Exam: Alert, Oriented X3 and CN II-XII Intact; negative Motor Sensory Deficit Skin Skin Exam: Warm and Dry COURSE Treatment Treatment: 77 y/o female presents with weaknes s x 2 weeks. PE benign. W/u initiated. Pt givne IV fluids. 1214 - w/u shows worsening of renal function, c/w dehydration. Potassium elevated at 6.4, no hemolysis. Pt givne IV calcium, bicarb, D50/insulin, plus additional fluids. + hyponatremia, probable mild UTI. Recommend admission for further hydration, correction of her electrolytes. will treat urine with IV rocephin. Discussed with Dr Jacobson, accepts the admission. [facility] Labs Reviewed Result Diagrams: 08/22/22 10:08 08/22/22 10:08 Laboratory: WBC 9.6 X10^3/uL (3.6-10.0) 08/22/22 10:08 RBC 4.06 X10^6/uL (3.5-5.4) 08/22/22 10:08 Hgb 9.9 g/dL (12.0-16.0) L 08/22/22 10:08 Hct 30.5 % (36.0-47.0) L 08/22/22 10:08 MCV 75.0 fL (80.0-100.0) L 08/22/22 10:08 MCH 24.3 pg (27.0-34.0) L 08/22/22 10:08 MCHC 32.3 g/dL (33.0-35.0) L 08/22/22 10:08 RDW 21.8 % (11.6-16.5) H 08/22/22 10:08 Plt Count 239 X10^3/uL (150.0-450.0) 08/22/22 10:08 Plt Count Comment Adequate (ADEQUATE) 08/22/22 10:08 MPV 8.5 fL (7.4-11.0) 08/22/22 10:08 Neut % (Auto) 75.8 % (42.0-75.0) H 08/22/22 10:08 Lymph % (Auto) 14.7 % (21.0-51.0) L 08/22/22 10:08 [place] % (Auto) 8.2 % (0.0-13.0) 08/22/22 10:08 Eos % (Auto) 0.9 % (0.9-2.9) 08/22/22 10:08 Baso % (Auto) 0.4 % (0.2-1.0) 08/22/22 10:08 Neut # (Auto) 7.3 x10^3/uL (2.2-4.8) H 08/22/22 10:08 Lymph # (Auto) 1.4 X10^3/uL (1.3-2.9) 08/22/22 10:08 [place] # (Auto) 0.8 x10^3/uL (0.3-0.8) 08/22/22 10:08 Eos # (Auto) 0.1 x10^3/uL (0.0-0.2) 08/22/22 10:08 Baso # (Auto) 0.0 X10^3/uL (0.0-0.1) 08/22/22 10:08 Absolute Nucleated RBC 0.0 /100WBC 08/22/22 10:08 Plt Morphology Comment Normal (NORMAL) 08/22/22 10:08 RBC Morphology Abnormal (NORMAL) A 08/22/22 10:08 Anisocytosis 1+ A 08/22/22 10:08 Microcytosis Slight A 08/22/22 10:08 Ovalocytes 1+ A 08/22/22 10:08 Wells Cells 1+ A 08/22/22 10:08 Sodium 129 mmol/L (136-145) L 08/22/22 10:08 Corrected Sodium 131 mmol/L (136-145) L 08/22/22 10:08 Potassium 6.4 mmol/L (3.5-5.1) H* 08/22/22 10:08 Chloride 99 mmol/L (98-107) 08/22/22 10:08 Carbon Dioxide 15.8 mmol/L (21-32) L 08/22/22 10:08 BUN 53 mg/dL (7-18) H 08/22/22 10:08 Creatinine 2.42 mg/dL (0.55-1.02) H 08/22/22 10:08 Est GFR (MDRD) Af Amer 25 (>60) L 08/22/22 10:08 Est GFR (MDRD) Non-Af 21 (>60) L 08/22/22 10:08 Glucose 195 mg/dL (65-99) H 08/22/22 10:08 Calcium 9.9 mg/dL (8.5-10.1) 08/22/22 10:08 Corrected Calcium 10.8 mg/dL (8.5-10.1) H 08/22/22 10:08 Total Bilirubin 0.30 mg/dL (0.2-1.0) 08/22/22 10:08 AST 19 Units/L (15-37) 08/22/22 10:08 ALT 18 Units/L (12-78) 08/22/22 10:08 Alkaline Phosphatase 94 Units/L (46-116) 08/22/22 10:08 Troponin I High Sens 4.6 ng/L (4.0-60.0) 08/22/22 10:08 Total Protein 7.3 g/dL (6.4-8.2) 08/22/22 10:08 Albumin 2.9 g/dL (3.4-5.0) L 08/22/22 10:08 Globulin 4.4 g/dL (2.5-4.5) 08/22/22 10:08 Albumin/Globulin Ratio 0.7 Ratio (1.1-2.1) L 08/22/22 10:08 Lipase 143 Units/L (73-393) 08/22/22 10:08 TSH 3rd Generation 1.621 uIU/mL (0.358-3.74) 08/22/22 10:08 Specimen Type Clean catch urine 08/22/22 10:00 Urine Color Pale yellow (YELLOW) 08/22/22 10:00 Urine Appearance Hazy (CLEAR) 08/22/22 10:00 Urine pH 5.0 (5.0 - 8.0) 08/22/22 10:00 Ur Specific [place] 1.015 (1.000-1.030) 08/22/22 10:00 Urine Protein 3+ (NEGATIVE) 08/22/22 10:00 Urine Glucose (UA) Negative (NEGATIVE) 08/22/22 10:00 Urine Ketones 1+ (NEGATIVE) 08/22/22 10:00 Urine Blood 2+ (NEGATIVE) 08/22/22 10:00 Urine Nitrite Negative (NEGATIVE) 08/22/22 10:00 Urine Bilirubin Negative (NEGATIVE) 08/22/22 10:00 Urine Urobilinogen Normal (NORMAL) 08/22/22 10:00 Ur Leukocyte Esterase 2+ (NEGATIVE) 08/22/22 10:00 Urine RBC 3-5 /HPF (0-3) A 08/22/22 10:00 Urine WBC 3-5 /HPF (0-5) 08/22/22 10:00 Ur Squamous Epith Cells Few /HPF (NEGATIVE) 08/22/22 10:00 Amorphous Sediment Trace /HPF (NEGATIVE) 08/22/22 10:00 Urine Bacteria 2+ /HPF (NEGATIVE) 08/22/22 10:00 Ur Culture Indicated? Yes/culture set up 08/22/22 10:00 Stl Occult Blood (IFOB) Negative (NEGATIVE) 08/22/22 10:00 Opioid Opioid Risk Tool Age ([place] box if 16-45): No History of Preadolescent Sexual Abuse: No Total: 0 Total Score Risk Category: Low Risk Copyright: Matias YOST predicting aberrant behaviors Discharge Plan Diagnosis Discharge Problem: [id number]-we-kncsqey kidney injury, Hyponatremia, Hyperkalemia, UTI (urinary tract infection) Discharge Plan Patient Disposition: ADMITTED INPATIENT Condition: Stable Orders to Discharge Patient Discharge Orders: Transfer (Routine); Ordered 08/22/22 Ordered By: David Quiros
[2022-08-22] MEDS ORDERED: NS 500 ML IV 500 ML IV ONE ×2 (09:51→09:58)
[2022-08-22 10:11] LABS: BILIRUBIN,URINE NEGATIVE (NEGATIVE); BLOOD/HEMOGLOBIN,URINE 2+ (NEGATIVE); GLUCOSE, URINE NEGATIVE (NEGATIVE); KETONES,URINE 1+ (NEGATIVE); LEUKOCYTE ESTERASE ,URINE 2+ (NEGATIVE); NITRITES,URINE NEGATIVE (NEGATIVE); PROTEIN,URINE 3+ (NEGATIVE); UROBILINOGEN,URINE NORMAL (NORMAL)
[2022-08-22 10:14] LABS: APPEARANCE,URINE HAZY (CLEAR); COLOR,URINE PALE YELLOW (YELLOW)
[2022-08-22 10:18] LABS: BACTERIA,URINE 2+ /HPF (NEGATIVE); SQUAMOUS EPITHELIAL CELL,UR FEW /HPF (NEGATIVE)
[2022-08-22 10:19] LABS: BASOPHILS % (AUTO) 0.4 % (0.2-1.0); EOSINOPHILS # (AUTO) 0.1 x10^3/uL (0.0-0.2); EOSINOPHILS % (AUTO) 0.9 % (0.9-2.9); HEMATOCRIT 30.5 % (36.0-47.0); HEMOGLOBIN 9.9 g/dL (12.0-16.0); LYMPHOCYTES # (AUTO) 1.4 X10^3/uL (1.3-2.9); LYMPHOCYTES % (AUTO) 14.7 % (21.0-51.0); MEAN CORPUSCULAR HEMOGLOBIN 24.3 pg (27.0-34.0); MEAN CORPUSCULAR HGB CONC 32.3 g/dL (33.0-35.0); MEAN PLATELET VOLUME 8.5 fL (7.4-11.0); MONOCYTES # (AUTO) 0.8 x10^3/uL (0.3-0.8); MONOCYTES % (AUTO) 8.2 % (0.0-13.0); NEUTROPHILS # (AUTO) 7.3 x10^3/uL (2.2-4.8); NEUTROPHILS % (AUTO) 75.8 % (42.0-75.0); RED BLOOD COUNT 4.06 X10^6/uL (3.5-5.4); RED CELL DISTRIBUTION WIDTH 21.8 % (11.6-16.5); WHITE BLOOD COUNT 9.6 X10^3/uL (3.6-10.0)
[2022-08-22 10:43] LABS: TSH (3RD GENERATION) 1.621 uIU/mL (0.358-3.74)
[2022-08-22 10:44] LABS: ANISOCYTOSIS 1+; BURR CELLS 1+; MICROCYTOSIS SLIGHT; OVALOCYTES 1+; PLATELET MORPHOLOGY COMMENT NORMAL (NORMAL)
--- NOTE | 2022-08-22 11:06 | RAD ---
HISTORYWEAKNESSSTUDYSingle-view [id number] trachea is midline. The cardiac silhouette is unremarkable . The lungs are clear without focal infiltrate or effusion. The bony thorax is unremarkable.IMPRESSIONNo acute cardiopulmonary disease.Electronically signed by: LAUREN TURCIOS (Aug 22, 2022 11:04:47)
[2022-08-22 11:15] LABS: ALBUMIN 2.9 g/dL (3.4-5.0); CALCIUM 9.9 mg/dL (8.5-10.1); CARBON DIOXIDE 15.8 mmol/L (21-32); COR CA(FOR HYPOALB) 10.8 mg/dL (8.5-10.1); CREATININE 2.42 mg/dL (0.55-1.02); TOTAL PROTEIN 7.3 g/dL (6.4-8.2)
[2022-08-22] MEDS ORDERED: D50W ABBOJECT SYR IV ONE (11:20)
[2022-08-22] MEDS ORDERED: SODIUM BICARBONATE 8.4% INJ ADULT IVP ONE (11:20)
[2022-08-22] MEDS ORDERED: CALCIUM GLUCONATE 10% 1 G in NS 100 ML IV 100 ML IV ONE (11:21)
[2022-08-22] MEDS ORDERED: NovoLIN R (or HumuLIN R) SUBCUT ONE (11:23)
[2022-08-22] MEDS ORDERED: NS 100 ML IV 100 ML ONE (11:32)
[2022-08-22] MEDS ORDERED: D50W ABBOJECT SYR ONE (11:33)
[2022-08-22] MEDS ORDERED: SODIUM BICARBONATE 8.4% INJ ADULT ONE (11:33)
[2022-08-22] MEDS ORDERED: NovoLIN R (or HumuLIN R) ONE (11:36)
[2022-08-22] MEDS ORDERED: NS 1,000 ML IV 1,000 ML ONE (11:47)
[2022-08-22] MEDS ORDERED: NexIUM PO SCH (13:06)
[2022-08-22] MEDS ORDERED: ROCEPHIN 1 GRAM IV PREMIX 1 G/50 ML IV.SOLN. IV SCH (13:06)
[2022-08-22] MEDS: NS 1,000 ML IV 1,000 ML IV SCH ×2 (14:00→21:53)
[2022-08-22] MEDS: ROCEPHIN VIAL 1 GRAM 1 G in NS 100 ML IV 100 ML IV SCH (14:33)
--- NOTE | 2022-08-22 18:08 | EKG ---
Test Reason : HYPERKALEMIA Blood Pressure : */* mmHG Vent. Rate : 102 BPM Atrial Rate : 102 BPM P-R Int : 190 ms QRS Dur : 68 ms QT Int : 320 ms P-R-T Axes : 50 5 59 degrees QTc Int : 417 ms Sinus tachycardia Otherwise normal ECG No previous ECGs available Confirmed by Krishna Roth ([id number]) on 08/26/2022 3:16:09 PM Referred By: Confirmed By: Krishna Roth
[2022-08-22] MEDS: SNACK - Diabetic Appropriate PO SCH ×2 (21:00→21:52)
[2022-08-22] MEDS ORDERED: GLUCOPHAGE PO SCH (21:00)
[2022-08-22] MEDS: CRESTOR TAB 10 MG PO SCH (21:00)
[2022-08-22] MEDS: LOPRESSOR TAB 25 MG PO SCH (21:00)
[2022-08-22] MEDS ORDERED: FERROUS GLUCONATE PO SCH (21:00)
[2022-08-23 05:02] LABS: BASOPHILS % (AUTO) 0.7 % (0.2-1.0); EOSINOPHILS # (AUTO) 0.1 x10^3/uL (0.0-0.2); EOSINOPHILS % (AUTO) 1.5 % (0.9-2.9); HEMATOCRIT 24.5 % (36.0-47.0); HEMOGLOBIN 8.3 g/dL (12.0-16.0); LYMPHOCYTES # (AUTO) 1.5 X10^3/uL (1.3-2.9); LYMPHOCYTES % (AUTO) 27.6 % (21.0-51.0); MEAN CORPUSCULAR VOLUME 73.7 fL (80.0-100.0); MEAN PLATELET VOLUME 8.3 fL (7.4-11.0); MONOCYTES # (AUTO) 0.6 x10^3/uL (0.3-0.8); MONOCYTES % (AUTO) 10.9 % (0.0-13.0); NEUTROPHILS # (AUTO) 3.1 x10^3/uL (2.2-4.8); NEUTROPHILS % (AUTO) 59.3 % (42.0-75.0); RED BLOOD COUNT 3.33 X10^6/uL (3.5-5.4); RED CELL DISTRIBUTION WIDTH 21.7 % (11.6-16.5); WHITE BLOOD COUNT 5.3 X10^3/uL (3.6-10.0)
[2022-08-23 05:19] LABS: ALANINE AMINOTRANSFERASE 16 Units/L (12-78); ALBUMIN 2.4 g/dL (3.4-5.0); ALKALINE PHOSPHATASE 75 Units/L (46-116); ASPARTATE AMINO TRANSFERASE 18 Units/L (15-37); BLOOD UREA NITROGEN 48 mg/dL (7-18); CALCIUM 9.7 mg/dL (8.5-10.1); CARBON DIOXIDE 22.9 mmol/L (21-32); CHLORIDE 104 mmol/L (98-107); CREATININE 2.01 mg/dL (0.55-1.02); SODIUM 135 mmol/L (136-145); TOTAL PROTEIN 6.3 g/dL (6.4-8.2); eGFR NON BLACK RACES 26 (>60)
[2022-08-23 05:54] LABS: ANISOCYTOSIS 1+; BURR CELLS 1+; HYPOCHROMASIA SLIGHT; MICROCYTOSIS SLIGHT; OVALOCYTES 1+; PLATELET MORPHOLOGY COMMENT NORMAL (NORMAL); POIKILOCYTOSIS 1+; SCHISTOCYTES SLIGHT
[2022-08-23] MEDS: FERROUS GLUCONATE PO SCH ×2 (06:21→18:54)
[2022-08-23] MEDS: NS 1,000 ML IV 1,000 ML IV SCH ×2 (06:21→09:07)
[2022-08-23] MEDS ORDERED: MOBIC TAB 15 MG PO SCH (09:00)
[2022-08-23] MEDS: LOPRESSOR TAB 25 MG PO SCH ×2 (09:04→20:41)
[2022-08-23] MEDS: PROTONIX TAB 40 MG PO SCH (09:05)
[2022-08-23] MEDS: ASPIRIN PO SCH (09:06)
[2022-08-23] MEDS: SYNTHROID 88 mcg TAB PO SCH (09:06)
[2022-08-23] MEDS: ROCEPHIN VIAL 1 GRAM 1 G in NS 100 ML IV 100 ML IV SCH (09:07)
--- NOTE | 2022-08-23 09:43 | RAD ---
HISTORYSOBSTUDYPortable AP [id number] ed normal heart size and contour with clear lungs and pleural spaces.IMPRESSIONNo change; no acute chest findings.Electronically signed by: ANGEL GONZALEZ (Aug 23, 2022 09:42:51)
[2022-08-23 13:55] LABS: ALBUMIN 2.3 g/dL (3.4-5.0); CALCIUM 9.1 mg/dL (8.5-10.1); CARBON DIOXIDE 22.1 mmol/L (21-32); COR CA(FOR HYPOALB) 10.5 mg/dL (8.5-10.1); CREATININE 2.01 mg/dL (0.55-1.02); TOTAL PROTEIN 6.1 g/dL (6.4-8.2)
[2022-08-23] MEDS: SNACK - Diabetic Appropriate PO SCH (20:25)
[2022-08-23] MEDS: CRESTOR TAB 10 MG PO SCH (20:42)
[2022-08-24] MEDS: NS 1,000 ML IV 1,000 ML IV SCH ×2 (00:17→05:50)
[2022-08-24 05:19] LABS: BASOPHILS % (AUTO) 0.7 % (0.2-1.0); EOSINOPHILS # (AUTO) 0.1 x10^3/uL (0.0-0.2); HEMATOCRIT 23.6 % (36.0-47.0); LYMPHOCYTES # (AUTO) 1.3 X10^3/uL (1.3-2.9); LYMPHOCYTES % (AUTO) 34.8 % (21.0-51.0); MEAN CORPUSCULAR HEMOGLOBIN 24.8 pg (27.0-34.0); MEAN CORPUSCULAR HGB CONC 33.8 g/dL (33.0-35.0); MEAN CORPUSCULAR VOLUME 73.4 fL (80.0-100.0); MEAN PLATELET VOLUME 8.1 fL (7.4-11.0); MONOCYTES # (AUTO) 0.4 x10^3/uL (0.3-0.8); MONOCYTES % (AUTO) 11.5 % (0.0-13.0); NEUTROPHILS # (AUTO) 1.8 x10^3/uL (2.2-4.8); RED BLOOD COUNT 3.22 X10^6/uL (3.5-5.4); RED CELL DISTRIBUTION WIDTH 21.5 % (11.6-16.5); WHITE BLOOD COUNT 3.8 X10^3/uL (3.6-10.0)
[2022-08-24 05:29] LABS: ALBUMIN 2.4 g/dL (3.4-5.0); CALCIUM 8.8 mg/dL (8.5-10.1); CARBON DIOXIDE 22.7 mmol/L (21-32); COR CA(FOR HYPOALB) 10.1 mg/dL (8.5-10.1); CREATININE 1.84 mg/dL (0.55-1.02); TOTAL PROTEIN 6.1 g/dL (6.4-8.2)
[2022-08-24 05:40] LABS: BAND NEUTROPHILS % 3 % (0-10)
[2022-08-24 05:41] LABS: ANISOCYTOSIS 1+; BURR CELLS SLIGHT; HYPOCHROMASIA 1+; MICROCYTOSIS SLIGHT; OVALOCYTES 1+; PLATELET MORPHOLOGY COMMENT NORMAL (NORMAL); POIKILOCYTOSIS 1+; SCHISTOCYTES SLIGHT
[2022-08-24] MEDS: LOPRESSOR TAB 25 MG PO SCH (08:13)
[2022-08-24] MEDS: SYNTHROID 88 mcg TAB PO SCH (08:13)
[2022-08-24] MEDS: FERROUS GLUCONATE PO SCH (08:13)
[2022-08-24] MEDS: ROCEPHIN VIAL 1 GRAM 1 G in NS 100 ML IV 100 ML IV SCH (08:13)
[2022-08-24] MEDS: ASPIRIN PO SCH (08:13)
[2022-08-24] MEDS: PROTONIX TAB 40 MG PO SCH (08:13)
[2022-08-24 09:32] VITALS: BP 141/65
== END 2022-08-24 10:40 | disposition home health service (06) ==
LOC: ER 09:36 → ICU 09:36
PROVIDERS: ADMIT Internal Medicine; ATTEND Internal Medicine
DX: B96.29 Other Escherichia coli [E. coli] as the cause of diseases classified elsewhere; R06.02 Shortness of breath; N17.8 Other acute kidney failure; E78.2 Mixed hyperlipidemia; E03.8 Other specified hypothyroidism; I12.9 Hypertensive chronic kidney disease with stage 1 through stage 4 chronic kidney disease, or unspecified chronic kidney disease; R53.1 Weakness; N39.0 Urinary tract infection, site not specified; E11.65 Type 2 diabetes mellitus with hyperglycemia; E87.5 Hyperkalemia; E87.1 Hypo-osmolality and hyponatremia; Z86.2 Personal history of diseases of the blood and blood-forming organs and certain disorders involving the immune mechanism; N18.9 Chronic kidney disease, unspecified